=== PATIENT | female | born 1965 | race Caucasian/White ===

== ENCOUNTER 2018-02-06 22:46 | Inpatient (IN) | payer OTHER ==
[~2018-02-06] VITALS: Ht 172.7 cm; Wt 117.0 kg
[2018-02-07] VITALS (10 sets, daily range): BP systolic 107–169; BP diastolic 71–105
[2018-02-07] MEDS ORDERED: IV NORMAL SALINE 1000ML BAG 1,000 ML IV ONE (01:00)
[2018-02-07] MEDS ORDERED: VANCOMYCIN 2 GM in IV NORMAL SALINE 500ML BAG 500 ML IV ONE (01:00)
--- NOTE | 2018-02-07 01:19 | PHYS DOC ---
Past Medical History Past Medical History: Diabetes-Type II, Hypertension, Schizophrenia Past Surgical History: No Surgical History Alcohol Use: None Drug Use: None Adult General Chief Complaint Chief Complaint: SKIN PROBLEM HPI HPI Patient is a 52 year old female presents with cellulitis to left lower extremity. Symptoms began 3 days ago after falling outside and scraped her legs on the ground. Patient has scarlatine rash involving anterior right lower leg extending from ankle to below left knee with 2.5 cm abscess, below left knee. Denies fever, reports chills and sweats. Denies dizziness or lightheadedness. No other acute symptoms or complaints. Patient has not been evaluated for this condition prior to ED visit.[] Review of Systems Review of Systems Review symptoms as per history of present illness. All other review symptoms are negative. All other systems were reviewed and found to be within normal limits, except as documented in this note. Current Medications Current Medications Current Medications Medications (Trade) Dose Ordered Sig/Jacobo Start Time Stop Time Status Last Admin Dose Admin Sodium Chloride 1,000 ml @ 1,000 mls/hr 1X ONCE 02/07/18 01:00 02/07/18 01:59 DC 02/07/18 01:00 1,000 MLS/HR Vancomycin HCl (Vanco Per Pharmacy) 1 each PRN DAILY PRN 02/07/18 01:00 02/07/18 02:16 1 EACH Vancomycin HCl 2 gm/Sodium Chloride 500 ml @ 250 mls/hr 1X ONCE 02/07/18 01:00 02/07/18 02:59 DC 02/07/18 01:00 250 MLS/HR Allergies Allergies Allergies Coded Allergies Type Severity Reaction Last Updated Verified No Known Drug Allergies 02/07/18 No Physical Exam Physical Exam Constitutional: Well developed, well nourished, no acute distress, non-toxic appearance. [] HENT: Normocephalic, atraumatic, bilateral external ears normal, oropharynx moist, no oral exudates, nose normal. [] Eyes: PERRLA, EOMI, conjunctiva normal, no discharge. [] Neck: Normal range of motion, no tenderness, supple, no stridor. [] Cardiovascular: Tachycardic.[] Lungs & Thorax: Bilateral breath sounds clear to auscultation [] Abdomen: Bowel sounds normal, soft, no tenderness. [] Skin: Bright red rash involving left lower extremity, extending from anterior knee to above left ankle. No streaking or induration, There is an approximately 2.5 cm diameter abscess located just below left knee.. [] Back: No tenderness, no CVA tenderness. [] Extremities: Left leg edema, approximately 30% greater than right lower extremity. [] Neurologic: Alert and oriented X 3, normal motor function, normal sensory function, no focal deficits noted. [] Psychologic: Affect normal, judgement normal, mood normal. [] Current Patient Data Vital Signs Vital Signs Date Time Temp Pulse Resp B/P (MAP) Pulse Ox O2 Delivery O2 Flow Rate FiO2 02/07/18 01:25 18 127/89 (102) 94 Nasal Cannula 3.0 02/07/18 00:00 100.6 130 100.6 Lab Values Laboratory Tests Test 02/07/18 01:15 White Blood Count 14.6 x10^3/uL (4.0-11.0) H Red Blood Count 4.47 x10^6/uL (3.50-5.40) Hemoglobin 13.7 g/dL (12.0-15.5) Hematocrit 39.3 % (36.0-47.0) Mean Corpuscular Volume 88 fL (79-100) Mean Corpuscular Hemoglobin 31 pg (25-35) Mean Corpuscular Hemoglobin Concent 35 g/dL (31-37) Red Cell Distribution Width 13.2 % (11.5-14.5) Platelet Count 420 x10^3/uL (140-400) H Neutrophils (%) (Auto) 78 % (31-73) H Lymphocytes (%) (Auto) 13 % (24-48) L Monocytes (%) (Auto) 7 % (0-9) Eosinophils (%) (Auto) 2 % (0-3) Basophils (%) (Auto) 1 % (0-3) Neutrophils # (Auto) 11.3 x10^3uL (1.8-7.7) H Lymphocytes # (Auto) 1.9 x10^3/uL (1.0-4.8) Monocytes # (Auto) 1.0 x10^3/uL (0.0-1.1) Eosinophils # (Auto) 0.3 x10^3/uL (0.0-0.7) Basophils # (Auto) 0.1 x10^3/uL (0.0-0.2) Sodium Level 138 mmol/L (136-145) Potassium Level 4.0 mmol/L (3.5-5.1) Chloride Level 98 mmol/L (98-107) Carbon Dioxide Level 24 mmol/L (21-32) Anion Gap 16 (6-14) H Blood Urea Nitrogen 11 mg/dL (7-20) Creatinine 0.8 mg/dL (0.6-1.0) Estimated GFR (Cockcroft-Gault) 75.0 BUN/Creatinine Ratio 14 (6-20) Glucose Level 370 mg/dL (70-99) H Lactic Acid Level 1.4 mmol/L (0.4-2.0) Calcium Level 9.8 mg/dL (8.5-10.1) Total Bilirubin 0.5 mg/dL (0.2-1.0) Aspartate Amino Transferase (AST) 12 U/L (15-37) L Alanine Aminotransferase (ALT) 15 U/L (14-59) Alkaline Phosphatase 119 U/L (46-116) H C-Reactive Protein, Quantitative 180.7 mg/L (0-3.3) H KT-Ttd-B-Type Natriuretic Peptide 64 pg/mL (0-124) Total Protein 9.3 g/dL (6.4-8.2) H Albumin 2.7 g/dL (3.4-5.0) L Albumin/Globulin Ratio 0.4 (1.0-1.7) L Laboratory Tests 02/07/18 01:15 Laboratory Tests 02/07/18 01:15 EKG EKG [] Radiology/Procedures Radiology/Procedures [Chest x-ray: reviwed ] Course & Med Decision Making Course & Med Decision Making Pertinent Labs and Imaging studies reviewed. (See chart for details) [Sepsis with left leg cellulitis. IV fluids, broad-spectrum antibiotics given. Blood pressure stable. Will admit to the hospital for further treatment,] Dragon Disclaimer Dragon Disclaimer This electronic medical record was generated, in whole or in part, using a voice recognition dictation system. Departure Departure Impression: Primary Impression: Sepsis affecting skin Disposition: ADMITTED INPATIENT Admitting Physician: Dionna Floyd Condition: STABLE PRANAV MOELLER DO Feb 07, 2018 01:20
[2018-02-07 01:25] LABS: BASO # 0.1 x10^3/uL (0.0-0.2); BASO % 1 % (0-3); EOS # 0.3 x10^3/uL (0.0-0.7); EOS % 2 % (0-3); HEMATOCRIT 39.3 % (36.0-47.0); HEMOGLOBIN 13.7 g/dL (12.0-15.5); LYMPH # 1.9 x10^3/uL (1.0-4.8); LYMPH % 13 % (24-48); MEAN CORPUSCULAR HEMOGLOBIN 31 pg (25-35); MEAN CORPUSCULAR HGB CONC 35 g/dL (31-37); MEAN CORPUSCULAR VOLUME 88 fL (79-100); MONO % 7 % (0-9); NEUT # 11.3 x10^3uL (1.8-7.7); NEUT % 78 % (31-73); PLATELET COUNT 420 x10^3/uL (140-400); RED BLOOD COUNT 4.47 x10^6/uL (3.50-5.40); RED CELL DISTRIBUTION WIDTH 13.2 % (11.5-14.5); WHITE BLOOD COUNT 14.6 x10^3/uL (4.0-11.0)
[2018-02-07 01:49] LABS: CALCIUM 9.8 mg/dL (8.5-10.1); CREATININE 0.8 mg/dL (0.6-1.0)
[2018-02-07 01:55] LABS: ALBUMIN 2.7 g/dL (3.4-5.0); ALBUMIN/GLOBULIN RATIO 0.4 (1.0-1.7); C-REACTIVE PROTEIN 180.7 mg/L (0-3.3); TOTAL BILIRUBIN 0.5 mg/dL (0.2-1.0); TOTAL PROTEIN 9.3 g/dL (6.4-8.2)
[2018-02-07] MEDS: VANCOMYCIN PER PHARMACY MC PRN ×2 (02:16→13:07)
[2018-02-07] MEDS ORDERED: LURA20TA PO (03:43)
[2018-02-07] MEDS ORDERED: LURA120T PO (03:43)
[2018-02-07] MEDS ORDERED: METF500T16 PO (03:43)
[2018-02-07] MEDS ORDERED: LISI1TAB7 PO (03:43)
[2018-02-07] MEDS ORDERED: IODI150T PO (03:43)
[2018-02-07] MEDS ORDERED: ASCO250T3 PO (03:43)
[2018-02-07] MEDS: IV NORMAL SALINE 1000ML BAG 1,000 ML IV SCH ×4 (05:11→22:00)
[2018-02-07] MEDS: MEROPENEM 500 MG in IV NORMAL SALINE 50ML 50 ML IV SCH ×3 (06:12→22:53)
--- NOTE | 2018-02-07 09:13 | RAD ---
EXAM: CHEST 1 VIEW. HISTORY: Shortness of breath, lower extremity swelling. COMPARISON: None. FINDINGS: A frontal view of the chest is obtained. The inspiration is small with mild basilar atelectasis. A more focal opacity in the left costophrenic angle may be a fat pad or additional atelectasis. There is no pneumothorax or pleural effusion. The heart is not enlarged. There is calcific tendinitis at the both rotator cuff insertions. IMPRESSION: 1. Basilar atelectasis versus trace pulmonary edema. 2. Correlate for bilateral calcific rotator cuff tendinitis. Electronically signed by: Shun Kay MD (02/07/2018 9:11 AM) [facility]
[2018-02-07] MEDS ORDERED: LIDOCAINE 2% PF 2ML VIAL. INJ ONE (09:30)
[2018-02-07] MEDS ORDERED: LIDOCAINE 2% 20 ML VIAL. IJ ONE (09:30)
[2018-02-07] MEDS ORDERED: DEXTROSE 50% 25 GM / 50ML DISP.SYRIN. IV PRN (09:30)
--- NOTE | 2018-02-07 09:31 | PDOC ---
Provider Note Provider Note H&P dictated cellulitis/abscess/sepsis - IV abx, ID and ortho consults, CT imaging DM2 uncontrolled - SSI HTN - home meds schizophrenia - home meds Nadiya WINSTON MD Feb 07, 2018 09:31
--- NOTE | 2018-02-07 09:40 | PDOC2 ---
CONSULT Date of Consult Date of Consult DATE: 02/07/18 TIME: 09:35 Reason for Consult Reason for Consult: Left leg infection Referring Physician Referring Physician: Identification/Chief Complaint Chief Complaint Lower left leg pain Source Source: Patient History of Present Illness Reason for Visit: Patient is a 52-year-old with a past medical history significant for schizophrenia and diabetes, on oral medication, who approximate 3 days ago think she got a bunch mosquito bites and was scratching these in her leg became infected. Since that is gotten dramatically more swollen and red. She has noticed 2 areas of blisters that have not ruptured and one more area of blister over her anterior proximal pretibial area that has ruptured. Her pain has become , worse and worse which prompted her to come into the emergency department. She was admitted for her swelling, cellulitis and likely abscesses. She does feel feverish. Denies any nausea or vomiting. She has been able to ambulate with assistance of a cane, she normally does use a cane intermittently. Past Medical History Cardiovascular: HTN Pulmonary: Asthma Psych: Schizophrenia Musculoskeletal: Osteoarthritis Endocrine: Diabetes Past Surgical History Past Surgical History: No pertinent history Family History Family History: Hearing Loss, Heart Disease Social History No ALCOHOL: rare Drugs: None Lives: with Family Current Problem List Problem List Problems Medical Problems: (1) Sepsis affecting skin Status: Acute Current Medications Current Medications Current Medications Vancomycin HCl (Vanco Per Pharmacy) 1 each PRN DAILY PRN MC SEE COMMENTS Last administered on 02/07/18at 02:16; Start 02/07/18 at 01:00 Sodium Chloride 1,000 ml @ 1,000 mls/hr 1X ONCE IV Last administered on at 01:00; Start 02/07/18 at 01:00; Stop 02/07/18 at 01:59; Status DC Meropenem 500 mg/ Sodium Chloride 50 ml @ 100 mls/hr Q8HRS IV Last administered on 02/07/18at 06:12; Start 02/07/18 at 06:00 Vancomycin HCl 2 gm/Sodium Chloride 500 ml @ 250 mls/hr 1X ONCE IV Last administered on 02/07/18at 01:00; Start 02/07/18 at 01:00; Stop 02/07/18 at 02:59 ; Status DC Sodium Chloride 1,000 ml @ 150 mls/hr Q6H40M IV Last administered on at 05:11; Start 02/07/18 at 02:00; Stop 02/08/18 at 01:59 Vancomycin HCl 1.75 gm/Sodium Chloride 500 ml @ 250 mls/hr Q8H IV ; Start 02/07 at 09:00 Vancomycin HCl (Vancomycin Trough Level) 1 each 1X ONCE MC ; Start 02/08/18 at 00:30; Stop 02/08/18 at 00:31 Lidocaine HCl (Xylocaine-Mpf 2% Vial) 10 ml 1X ONCE INJ ; Start 02/07/18 at 09: 30; Stop 02/07/18 at 09:31; Status Cancel Insulin Human Lispro (HumaLOG) 0-7 UNITS TIDWMEALS SQ ; Start 02/07/18 at 12:00 Dextrose (Dextrose 50%-Water Syringe) 12.5 gm PRN Q15MIN PRN IV SEE COMMENTS; Start 02/07/18 at 09:30 Lidocaine HCl 20 ml 1X ONCE IJ ; Start 02/07/18 at 09:30; Stop 02/07/18 at 09: 31; Status DC Non-Formulary Medication (Lisinopril/ Hydrochlorothiazide (Lisinopril-Hctz 20- 25 Mg Tab)) 1 tab DAILY PO ; Start 02/08/18 at 09:00; Status UNV Non-Formulary Medication (Lurasidone Hcl (Latuda)) 20 mg DAILY PO ; Start at 09:00; Status UNV Non-Formulary Medication (Lurasidone Hcl (Latuda)) 120 mg DAILY PO ; Start 02/08 at 09:00; Status UNV Active Scripts Active Reported Ascorbic Acid 250 Mg Tablet 250 Mg PO DAILY Kelp (Iodine) 150 Mcg Tablet 150 Mcg PO PRN 1X PRN Latuda (Lurasidone Hcl) 120 Mg Tablet 120 Mg PO DAILY Latuda (Lurasidone Hcl) 20 Mg Tablet 20 Mg PO DAILY Lisinopril-Hctz 20-25 Mg Tab (Lisinopril/Hydrochlorothiazide) 1 Each Tablet 1 Tab PO DAILY Metformin Hcl 500 Mg Tablet 500 Mg PO BIDWMEALS Allergies Allergies: Coded Allergies: No Known Drug Allergies (Unverified , 02/07/18) ROS General: YES: Fatigue PSYCHOLOGICAL ROS: No: Anxiety, Behavioral Disorder, Concentration difficultie , Decreased libido, Depression, Disorientation, Hallucinations, Hostility, Irritablity, Memory difficulties, Mood Swings, Obsessive thoughts, Physical abuse, Sexual abuse, Sleep disturbances, Suicidal ideation, Other Eyes: No Blurry vision, No Decreased vision, No Double vision, No Dry eyes, No Excessive tearing, No Eye Pain, No Itchy Eyes, No Loss of vision, No Photophobia , No Scotomata, No Uses contacts, No Uses glasses, No Other HEENT: No: Heacaches, Visual Changes, Hearing change, Nasal congestion, Nasal discharge, Oral lesions, Sinus pain, Sore Throat, Epistaxis, Sneezing, Snoring, Tinnitus, Vertigo, Vocal changes, Other ALLERGY AND IMMUNOLOGY: YES: Insect Bite Sensitivity Hematological and Lymphatic: No: Bleeding Problems, Blood Clots, Blood Transfusions, Brusing, Night Sweats, Pallor, Swollen Lymph Nodes, Other ENDOCRINE: No: Breast Changes, Galactorrhea, Hair Pattern Changes, Hot Flashes , Malaise/lethargy, Mood Swings, Palpitations, Polydipsia/polyuria, Skin Changes , Temperature Intolerance, Unexpected Weight Changes, Other Respiratory: No: Cough, Hemoptysis, Orthopnea, Pleuritic Pain, Shortness of breath, SOB with excertion, Sputum Changes, Stridor, Tachypnea, Wheezing, Other Cardiovascular: No Chest Pain, No Palpitations, No Orthopnea, No Paroxysmal Noc. Dyspnea, No Edema, No Lt Headedness, No Other Gastrointestinal: No Nausea, No Vomiting, No Abdominal Pain, No Diarrhea, No Constipation, No Melena, No Hematochezia, No Other Genitourinary: No Dysuria, No Frequency, No Incontinence, No Hematuria, No Retention, No Discharge, No Urgency, No Pain, No Flank Pain, No Other, No , No , No , No , No , No , No Musculoskeletal: Yes Muscle Pain, Yes Pain In: (left lower leg) Neurological: No Behavorial Changes, No Bowel/Bladder ControlChng, No Confusion , No Dizziness, No Gait Disturbance, No Headaches, No Impaired Coord/balance, No Memory Loss, No Numbness/Tingling, No Seizures, No Speech Problems, No Tremors, No Visual Changes, No Weakness, No Other Skin: Yes Skin Lesion Changes Physical Exam General: Alert, Oriented X3 HEENT: Atraumatic, EOMI Lungs: Other (respirations aren't labored with symmetric chest rise) Heart: Regular rate, No murmurs Abdomen: Soft, No tenderness Extremities: Normal pulses, Other (no edema right lower extremity) Skin: Other (she has scattered superficial excoriations over a markedly swollen and cellulitic left calf region.) Neuro: Normal speech, Strength at 5/5 X4 ext, Sensation intact Psych/Mental Status: Mental status NL, Mood NL MUSCULOSKELETAL: Other (left calf is markedly cellulitic and swollen circumferentially. No involvement of foot and ankle or knee. No pain with passive range of motion in her left lower extremity. She has 2 times size areas one over anterior distal tibia and one over her lateral middle tibia that are consistent with abscess.) Vitals VITALS Vital Signs Date Time Temp Pulse Resp B/P (MAP) Pulse Ox O2 Delivery O2 Flow Rate FiO2 02/07/18 07:00 98.7 106 18 131/78 (95) 95 Room Air 98.7 02/07/18 01:56 3.0 Labs Labs Laboratory Tests Test 02/07/18 01:15 02/07/18 04:15 White Blood Count 14.6 x10^3/uL (4.0-11.0) Red Blood Count 4.47 x10^6/uL (3.50-5.40) Hemoglobin 13.7 g/dL (12.0-15.5) Hematocrit 39.3 % (36.0-47.0) Mean Corpuscular Volume 88 fL (79-100) Mean Corpuscular Hemoglobin 31 pg (25-35) Mean Corpuscular Hemoglobin Concent 35 g/dL (31-37) Red Cell Distribution Width 13.2 % (11.5-14.5) Platelet Count 420 x10^3/uL (140-400) Neutrophils (%) (Auto) 78 % (31-73) Lymphocytes (%) (Auto) 13 % (24-48) Monocytes (%) (Auto) 7 % (0-9) Eosinophils (%) (Auto) 2 % (0-3) Basophils (%) (Auto) 1 % (0-3) Neutrophils # (Auto) 11.3 x10^3uL (1.8-7.7) Lymphocytes # (Auto) 1.9 x10^3/uL (1.0-4.8) Monocytes # (Auto) 1.0 x10^3/uL (0.0-1.1) Eosinophils # (Auto) 0.3 x10^3/uL (0.0-0.7) Basophils # (Auto) 0.1 x10^3/uL (0.0-0.2) Sodium Level 138 mmol/L (136-145) Potassium Level 4.0 mmol/L (3.5-5.1) Chloride Level 98 mmol/L (98-107) Carbon Dioxide Level 24 mmol/L (21-32) Anion Gap 16 (6-14) Blood Urea Nitrogen 11 mg/dL (7-20) Creatinine 0.8 mg/dL (0.6-1.0) Estimated GFR (Cockcroft-Gault) 75.0 BUN/Creatinine Ratio 14 (6-20) Glucose Level 370 mg/dL (70-99) Lactic Acid Level 1.4 mmol/L (0.4-2.0) 0.9 mmol/L (0.4-2.0) Calcium Level 9.8 mg/dL (8.5-10.1) Total Bilirubin 0.5 mg/dL (0.2-1.0) Aspartate Amino Transf (AST/SGOT) 12 U/L (15-37) Alanine Aminotransferase (ALT/SGPT) 15 U/L (14-59) Alkaline Phosphatase 119 U/L (46-116) C-Reactive Protein, Quantitative 180.7 mg/L (0-3.3) WA-Vxq-O-Type Natriuretic Peptide 64 pg/mL (0-124) Total Protein 9.3 g/dL (6.4-8.2) Albumin 2.7 g/dL (3.4-5.0) Albumin/Globulin Ratio 0.4 (1.0-1.7) Laboratory Tests Test 02/07/18 01:15 02/07/18 04:15 White Blood Count 14.6 x10^3/uL (4.0-11.0) Red Blood Count 4.47 x10^6/uL (3.50-5.40) Hemoglobin 13.7 g/dL (12.0-15.5) Hematocrit 39.3 % (36.0-47.0) Mean Corpuscular Volume 88 fL (79-100) Mean Corpuscular Hemoglobin 31 pg (25-35) Mean Corpuscular Hemoglobin Concent 35 g/dL (31-37) Red Cell Distribution Width 13.2 % (11.5-14.5) Platelet Count 420 x10^3/uL (140-400) Neutrophils (%) (Auto) 78 % (31-73) Lymphocytes (%) (Auto) 13 % (24-48) Monocytes (%) (Auto) 7 % (0-9) Eosinophils (%) (Auto) 2 % (0-3) Basophils (%) (Auto) 1 % (0-3) Neutrophils # (Auto) 11.3 x10^3uL (1.8-7.7) Lymphocytes # (Auto) 1.9 x10^3/uL (1.0-4.8) Monocytes # (Auto) 1.0 x10^3/uL (0.0-1.1) Eosinophils # (Auto) 0.3 x10^3/uL (0.0-0.7) Basophils # (Auto) 0.1 x10^3/uL (0.0-0.2) Sodium Level 138 mmol/L (136-145) Potassium Level 4.0 mmol/L (3.5-5.1) Chloride Level 98 mmol/L (98-107) Carbon Dioxide Level 24 mmol/L (21-32) Anion Gap 16 (6-14) Blood Urea Nitrogen 11 mg/dL (7-20) Creatinine 0.8 mg/dL (0.6-1.0) Estimated GFR (Cockcroft-Gault) 75.0 BUN/Creatinine Ratio 14 (6-20) Glucose Level 370 mg/dL (70-99) Lactic Acid Level 1.4 mmol/L (0.4-2.0) 0.9 mmol/L (0.4-2.0) Calcium Level 9.8 mg/dL (8.5-10.1) Total Bilirubin 0.5 mg/dL (0.2-1.0) Aspartate Amino Transf (AST/SGOT) 12 U/L (15-37) Alanine Aminotransferase (ALT/SGPT) 15 U/L (14-59) Alkaline Phosphatase 119 U/L (46-116) C-Reactive Protein, Quantitative 180.7 mg/L (0-3.3) SL-Dee-W-Type Natriuretic Peptide 64 pg/mL (0-124) Total Protein 9.3 g/dL (6.4-8.2) Albumin 2.7 g/dL (3.4-5.0) Albumin/Globulin Ratio 0.4 (1.0-1.7) Assessment/Plan Assessment/Plan Given her cellulitis, the onset of symptoms over several days, her lack of pain with passive stretch I do not think this represents a necrotizing deep infection. I did discuss her case with Dr. Lorenzana. I discussed a local I&D followed by CAT scan of her left lower extremity to see if there is any deeper fluid collections any draining today. She will remain nothing by mouth. I recommend infectious disease consult. ROYCE DE LA FUENTE II, MD Feb 07, 2018 09:40
--- NOTE | 2018-02-07 09:46 | PDOC4 ---
Operative Note Operative Note Date of procedure 02/07/2018 Surgeon: myself Preoperative diagnosis: Abscesses left lower extremity Postoperative diagnosis: Same Procedure performed bedside I&D Anesthesia: 2% plain lidocaine locally Findings: Small amount of gross purulence Reason for procedure. Patient is a 52-year-old female has has seen in consultation this morning. Please see my consult note for full details. We had a discussion of the risks, benefits, alternatives and rationale to perform this bedside procedure. She wished to proceed. Description of procedure: After sterile prep over the abscesses I injected approximately 5 mL of lidocaine lidocaine into the subcutaneous tissue around these areas. After allowing several minutes for this to set up, I used a scalpel to open and unroofed the abscesses. I used a sterile swab to palpate deeper, I was unable to palpate past subcutaneous tissue. A small amount of purulent material was expressed from each of these. Sterile dressing was applied. I discussed with the patient and nursing that we will get a CAT scan now in order to help decide if there are any deeper fluid collections that would need irrigation and debridement. The patient will remain nothing by mouth. ROYCE DE LA FUENTE II, MD Feb 07, 2018 09:46
--- NOTE | 2018-02-07 10:45 | HP ---
ADMIT DATE: 02/07/2018 ADMISSION DIAGNOSIS: Cellulitis, abscess of the left lower extremity. HISTORY OF PRESENT ILLNESS: This is a 52-year-old lady with cognitive delays who was outside getting some fresh air and had several mosquito bites on her legs. She started scratching them and they have become infected and now, her left lower leg has become quite red, angry, swollen, tender and has several peel on areas. One area on the upper anterior henderson developed a 3-cm vesicle, which is opened and is hemorrhagic. The symptoms have been progressive over the last 3 days. She was febrile at 100.6. She had a leukocytosis, elevated C-reactive protein. PAST MEDICAL HISTORY: She is a type 2 diabetic with hypertension, schizophrenia. PAST SURGICAL HISTORY: None. SOCIAL HISTORY: She does not smoke, drink or use drugs. ALLERGIES: She has no known drug allergies. HOME MEDICATIONS: Include lisinopril/HCTZ 20/25 daily, Latuda 20 mg daily plus 120 mg daily, metformin 500 mg b.i.d. with meals and ascorbic acid 250 mg daily. FAMILY HISTORY: Noncontributory. REVIEW OF SYSTEMS: HEENT: She wears glasses. CARDIAC: Negative for chest pain, palpitations. PULMONARY: Negative for cough or shortness of breath. GASTROINTESTINAL: Negative for nausea or vomiting. She does have a history of constipation. GENITOURINARY: Positive for stress incontinence. ENDOCRINE: Positive for type 2 diabetes. PSYCHIATRIC: Positive for schizophrenia and anxiety. NEUROLOGIC: Positive for peripheral neuropathy. PHYSICAL EXAMINATION: GENERAL: She is awake and alert and comfortable. VITAL SIGNS: Temperature overnight as high as 100.6, blood pressure 131/78, heart rate range from 106-130, pulse ox 95% on room air. HEENT: Shows her wearing her glasses. Conjunctivae are clear. Dentition is poor. NECK: Supple. HEART: Tachycardic, but regular. LUNGS: Clear. ABDOMEN: Obese, soft, nondistended, nontender. EXTREMITIES: Her left lower extremity is about twice the size of her right one with a soft tissue swelling. There is a nearly 3-cm hemorrhagic vesicle of the upper mid henderson with a dressing around it. There is a blood clot that comes out of it though. There are 2 other areas of purulence that are pointing, 1 above the ankle and 1 on the lateral leg. She does have sensation in her feet though. Toenails are unremarkable. Right leg is normal. SKIN: Otherwise is not showing any significant lesions. LABORATORY STUDIES: White count 14.7, hemoglobin 13.7, platelet count is 420. Left shift with 78 neutrophils percentage montero. Chemistries: Blood sugar was 370 at 01:15, this morning 200. Most recent check C-reactive protein is 180, alkaline phosphatase 119, albumin is low at 2.7, total protein is high at 9.3, anion gap is high at 16. The rest of her electrolytes are normal. Her lactic acid is normal at 1.4 with a repeat is 0.9. Chest x-ray shows basilar atelectasis versus trace pulmonary edema and some changes suggestive of bilateral rotator cuff tendinitis that is calcific. ASSESSMENT: 1. Abscess/cellulitis of the left lower extremity with sepsis. 2. Uncontrolled type 2 diabetes. 3. Hypertension. 4. Schizophrenia. PLAN: She is admitted. She has been given vancomycin and meropenem. Blood cultures have been obtained. Infectious Disease is consulted. Ortho was consulted. Bedside I and D will be done by Dr. Chu. CT imaging of the lower extremity is ordered to see if a more aggressive surgical intervention is needed. Sliding scale insulin is ordered. She will apparently remain n.p.o. Home meds are reconciled. W Travis WINSTON MD DR: JESUS ALBERTO/ruperto JOB#: [id number] / [id number]
--- NOTE | 2018-02-07 10:49 | RAD ---
EXAM: CT left leg without contrast. HISTORY: Cellulitis, pain, swelling. Assess for abscess. TECHNIQUE: CT of the left portion it was performed from the distal femoral metaphysis through the. Without intravenous contrast. COMPARISON: None. FINDINGS: There is a region of skin thickening and irregularity just inferior to the tibial tubercle. This measures 5 cm craniocaudally and approximately 3.2 x 1.3 cm transaxially. There is only mild stranding within the underlying subcutaneous fat without a focal collection. Subcutaneous edema is noted diffusely throughout the lower leg laterally greater than medially. Focal soft tissue densities are seen within the subcutaneous fat laterally, probably 7 cm proximal to the lateral malleolus and measure up to 2.5 x 1.9 cm transaxially. These may represent confluent edema or small fluid collections or phlegmonous change. No definitive drainable collection is seen by noncontrast CT. Edema does not appear to extend to deeper compartments. No fractures are identified. There is moderate to severe medial compartment predominant tricompartmental osteoarthritis of the left knee. A loose body along the anterior intercondylar notch measures 1.4 cm. There is moderate lateral subluxation of the patella. Limited images of the right lower extremity reveal no clear adenopathy. IMPRESSION: 1. 5 cm region of skin thickening inferior to the left tibial tubercle. Correlate for an ulcer or other skin lesions. 2. Small confluent regions of soft tissue density within the subcutaneous fat 7 cm proximal to the left lateral malleolus may be confluence edema, or small abscesses or phlegmonous change. Noncontrast CT cannot differentiate. Ultrasound at this site could exclude drainable collections if there is persistent concern. 3. Edema throughout the left lower extremity is consistent with the given history of cellulitis. 4. Moderate to severe medial compartment predominant tricompartmental osteoarthritis of the left knee. 14 mm loose body within the anterior intercondylar notch. *One or more of the following individualized dose reduction techniques were utilized for this examination: 1. Automated exposure control. 2. Adjustment of the mA and/or kV according to patient size. 3. Use of iterative reconstruction technique. Electronically signed by: Shun Kay MD (02/07/2018 10:46 AM) [facility]
--- NOTE | 2018-02-07 11:45 | EKG ---
[facility] [address] [place] [address] Test Date: 2018-02-07 Test Time: 01:55:50 Pat Name: RAMÓN SCHOFIELD Department: Room: 404 Gender: F Scraper Operator: : 1965 Requested By: PRANAV MOELLER Order Number: [id number] Reading MD: Aroldo Sorensen MD Measurements Intervals Holloway Rate: 132 P: GA: QRS: -24 QRSD: 78 T: 24 QT: 312 QTc: 466 Interpretive Statements SR PVC 1ST DEGREE AVB Electronically Signed On 02-09-2018 11:13:44 CDT by Aroldo Sorensen MD
[2018-02-07] MEDS: INSULIN LISPRO 300 UNITS/3 ML INSULN.PEN. SQ SCH ×2 (12:00→17:00)
[2018-02-07] MEDS: VANCOMYCIN 1.75 GM in IV NORMAL SALINE 500ML BAG 500 ML IV SCH ×2 (12:01→21:09)
[2018-02-07] MEDS: fentaNYL PF VIAL 100 MCG/2 ML VIAL IV PRN ×2 (12:02→18:40)
[2018-02-07] MEDS ORDERED: IV RINGERS,LACTATED 1000ML 1,000 ML IV SCH (12:27)
[2018-02-07] MEDS ORDERED: LIDOCAINE 1% PF 2 ML VIAL. ID PRN (12:30)
[2018-02-07] MEDS ORDERED: HYDROmorphone 2 MG/ML VIAL IV PRN (12:30)
[2018-02-07] MEDS ORDERED: MORPHINE SULFATE 2 MG/ML VIAL. IV PRN (12:30)
[2018-02-07] MEDS ORDERED: fentaNYL PF VIAL 100 MCG/2 ML VIAL IV PRN ×2 (12:30)
[2018-02-07] MEDS ORDERED: PROCHLORPERAZINE 10 MG/2 ML VIAL. IV PRN (12:30)
[2018-02-07] MEDS ORDERED: ONDANSETRON PF 4 MG/2 ML VIAL. IV PRN (12:30)
[2018-02-07] MEDS ORDERED: DEXAMETHASONE SOD PHOS 20 MG/5 ML VIAL. ONE (12:35)
[2018-02-07] MEDS ORDERED: ONDANSETRON PF 4 MG/2 ML VIAL. ONE (12:35)
[2018-02-07] MEDS ORDERED: PROPOFOL 20 ML IV ONE (12:35)
[2018-02-07] MEDS ORDERED: fentaNYL PF VIAL 100 MCG/2 ML VIAL ONE (12:36)
[2018-02-07] MEDS ORDERED: LIDOCAINE 2% 20 ML VIAL. ONE (13:38)
[2018-02-07] MEDS ORDERED: BUPIVACAINE MPF 0.5% 30 ML VIAL. ONE (13:39)
[2018-02-07] MEDS ORDERED: SEVOFLURANE 31 TO 60 MINUTES. IH ONE (15:25)
--- NOTE | 2018-02-07 15:33 | PDOC4 ---
Operative Note Operative Note Date of procedure: 02/07/2018 Surgeon: Daryl De La Fuente Preoperative diagnosis: Left lower extremity cellulitis with fluid collection Postoperative diagnosis: Left lower extremity cellulitis with abscess Procedure performed: Application of wound VAC to 2 wounds, less than 20 cm in total; irrigation and debridement, excisional, skin and subcutaneous tissue Anesthesia: Gen. Findings: gross purulence at fluctuant areas laterally, no evidence that the infection went deeper then skin and subcutaneous tissue Blood loss: 20mL Complications: none Specimens: Swabs sent for culture, tissue sent for culture Reason for procedure: Patient is a very pleasant 51-year-old female has noticed worsening pain redness and swelling over her left lower extremity over the past 2-3 days. Because of this she presented to the emergency department and was admitted. Please see my consult note for further details. I discussion of the risks, benefits, alternatives and rationale to the operation based on my clinical and radiographic examination. She wished to proceed. Her graft description of procedure: Patient was greeted in the preoperative holding area where the correct extremity was verified and marked. She was taken back to the operative suite and her antibiotics were maintained as scheduled. Once in the operating room, she was transferred gently supine to the OR table and secured to the bed with all pressure points padded. She had successful induction of a general anesthetic. Left lower extremity was prepped and draped with Betadine paint. After this, we conductor standard preoperative timeout. Based on my review of the CAT scan and her clinical examination, I judy a line over the suspected area with a skin marker then incised skin with a scalpel. Electrocautery was used for hemostasis. Metzenbaums and hemostat for dissection. After incising skin, small amount gross purulence came from the distal lateral incision area and I used a hemostat and probed deep and was not able to enter through the fascial tissue. I then incised another area with fluctuance that had a large pustule centered over it and dissected subcutaneous tissues tissue with hemostats again as well. Exploring this area, I was not able to pass through the subcutaneous tissue. After incising this more proximal lateral area, a larger amount gross purulence extravasated as well as thin watery fluid. It was not grayish in coloration. It was serosanguineous. At this point, I took my tissue on culture samples from the wounds. I then tried to express any material from the anterior proximal pretibial Em and Ila purulence did emanate with manipulation so I made a poke hole over this, by 1 cm , then used a hemostat to dissect this area there was a small amount of gross purulence from here. After being satisfied with an taking my time at exploring to see if this went subfascial, I was confident it did not. Given the large amount of fluid that was passively draining from her lateral incisions, I opted to place a wound VAC to help with this and therefore fashion VAC sponges, one deep and one transversely across it superficially and then sealed these often connected them to the suction apparatus. I ensured it had a good seal prior to leaving the operating room. I packed the other 2 poke holes, one from my bedside I&D, with gauze. The wound VAC and the packing were done after I used about 2000 mL of sterile fluid to irrigated all of these out. We then placed a gauze and a loose wrap of gauze in place over her left lower extremity. She is then awakened from anesthesia and transferred gently supine to the hospital bed and taken to PACU in a stable and extubated condition. Postoperative plan is to readmitted to the floor under the care of the hospitalist. We will follow along with wound cultures. DARYL DE LA FUENTE II, MD Feb 07, 2018 15:33
[2018-02-07] MEDS ORDERED: INSULIN LISPRO 100 UNIT/ML 3ML VIAL. SQ ONE (16:00)
[2018-02-07] MEDS ORDERED: INSULIN LISPRO 300 UNITS/3 ML INSULN.PEN. SQ SCH (16:15)
[2018-02-07] MEDS: LISINOPRIL 20 MG TABLET PO SCH (16:55)
[2018-02-07] MEDS: hydroCHLOROthiazide 25 MG TABLET PO SCH (16:55)
[2018-02-07] MEDS ORDERED: INSULIN LISPRO 300 UNITS/3 ML INSULN.PEN. SQ ONE (21:30)
[2018-02-07] MEDS: NYSTATIN TOPICAL POWDER 15GM BOTTLE. TP SCH (22:53)
[2018-02-08 03:00] VITALS: BP 154/114
[2018-02-08] MEDS: LISINOPRIL 20 MG TABLET PO SCH (03:18)
[2018-02-08] MEDS: VANCOMYCIN 1.75 GM in IV NORMAL SALINE 500ML BAG 500 ML IV SCH ×2 (04:00→17:15)
[2018-02-08 05:11] LABS: BASO % 0 % (0-3); EOS % 0 % (0-3); HEMATOCRIT 37.1 % (36.0-47.0); HEMOGLOBIN 12.2 g/dL (12.0-15.5); LYMPH # 1.4 x10^3/uL (1.0-4.8); LYMPH % 11 % (24-48); MEAN CORPUSCULAR HEMOGLOBIN 29 pg (25-35); MEAN CORPUSCULAR HGB CONC 33 g/dL (31-37); MEAN CORPUSCULAR VOLUME 89 fL (79-100); MONO # 0.4 x10^3/uL (0.0-1.1); MONO % 3 % (0-9); NEUT # 11.1 x10^3uL (1.8-7.7); NEUT % 85 % (31-73); PLATELET COUNT 376 x10^3/uL (140-400); RED BLOOD COUNT 4.16 x10^6/uL (3.50-5.40); RED CELL DISTRIBUTION WIDTH 13.4 % (11.5-14.5); WHITE BLOOD COUNT 12.9 x10^3/uL (4.0-11.0)
[2018-02-08 05:12] LABS: VANC TR 24.9 mcg/mL (10.0-20.0)
[2018-02-08 05:44] LABS: ALBUMIN 2.2 g/dL (3.4-5.0); ALBUMIN/GLOBULIN RATIO 0.4 (1.0-1.7); CALCIUM 9.2 mg/dL (8.5-10.1); CREATININE 0.7 mg/dL (0.6-1.0); GFR 87.5; POTASSIUM 3.9 mmol/L (3.5-5.1); TOTAL BILIRUBIN 0.4 mg/dL (0.2-1.0); TOTAL PROTEIN 8.3 g/dL (6.4-8.2)
[2018-02-08] MEDS: VANCOMYCIN PER PHARMACY MC PRN ×3 (05:55→11:03)
[2018-02-08] MEDS: MEROPENEM 500 MG in IV NORMAL SALINE 50ML 50 ML IV SCH ×2 (06:05→14:00)
[2018-02-08 07:00] VITALS: BP 150/93
[2018-02-08] MEDS: LURASIDONE 40 MG TABLET. PO SCH (08:44)
[2018-02-08] MEDS: HYDROcodone/APAP 5/325MG 1 TAB TABLET PO PRN ×3 (08:45→16:24)
[2018-02-08] MEDS: hydroCHLOROthiazide 25 MG TABLET PO SCH (08:46)
[2018-02-08] MEDS: NYSTATIN TOPICAL POWDER 15GM BOTTLE. TP SCH ×2 (08:47→22:09)
[2018-02-08] MEDS: INSULIN LISPRO 300 UNITS/3 ML INSULN.PEN. SQ SCH ×5 (08:59→17:25)
[2018-02-08] MEDS ORDERED: NON FORMULARY ITEM (Lurasidone Hcl (Latuda) 120 MG) PO SCH (09:00)
--- NOTE | 2018-02-08 10:54 | PDOC ---
Infectious Disease Note Vital Sign Vital Signs Vital Signs Date Time Temp Pulse Resp B/P (MAP) Pulse Ox O2 Delivery O2 Flow Rate FiO2 02/08/18 08:46 20 Room Air 02/08/18 07:00 97.7 92 150/93 (112) 92 97.7 02/08/18 03:00 2.0 Labs Lab Laboratory Tests Test 02/07/18 11:43 02/07/18 15:49 02/07/18 21:05 02/08/18 03:30 Glucose (Fingerstick) 268 mg/dL (70-99) 253 mg/dL (70-99) 429 mg/dL (70-99) White Blood Count 12.9 x10^3/uL (4.0-11.0) Red Blood Count 4.16 x10^6/uL (3.50-5.40) Hemoglobin 12.2 g/dL (12.0-15.5) Hematocrit 37.1 % (36.0-47.0) Mean Corpuscular Volume 89 fL (79-100) Mean Corpuscular Hemoglobin 29 pg (25-35) Mean Corpuscular Hemoglobin Concent 33 g/dL (31-37) Red Cell Distribution Width 13.4 % (11.5-14.5) Platelet Count 376 x10^3/uL (140-400) Neutrophils (%) (Auto) 85 % (31-73) Lymphocytes (%) (Auto) 11 % (24-48) Monocytes (%) (Auto) 3 % (0-9) Eosinophils (%) (Auto) 0 % (0-3) Basophils (%) (Auto) 0 % (0-3) Neutrophils # (Auto) 11.1 x10^3uL (1.8-7.7) Lymphocytes # (Auto) 1.4 x10^3/uL (1.0-4.8) Monocytes # (Auto) 0.4 x10^3/uL (0.0-1.1) Eosinophils # (Auto) 0.0 x10^3/uL (0.0-0.7) Basophils # (Auto) 0.0 x10^3/uL (0.0-0.2) Sodium Level 141 mmol/L (136-145) Potassium Level 3.9 mmol/L (3.5-5.1) Chloride Level 104 mmol/L (98-107) Carbon Dioxide Level 21 mmol/L (21-32) Anion Gap 16 (6-14) Blood Urea Nitrogen 13 mg/dL (7-20) Creatinine 0.7 mg/dL (0.6-1.0) Estimated GFR (Cockcroft-Gault) 87.5 BUN/Creatinine Ratio 19 (6-20) Glucose Level 346 mg/dL (70-99) Calcium Level 9.2 mg/dL (8.5-10.1) Total Bilirubin 0.4 mg/dL (0.2-1.0) Aspartate Amino Transf (AST/SGOT) 15 U/L (15-37) Alanine Aminotransferase (ALT/SGPT) 17 U/L (14-59) Alkaline Phosphatase 108 U/L (46-116) Total Protein 8.3 g/dL (6.4-8.2) Albumin 2.2 g/dL (3.4-5.0) Albumin/Globulin Ratio 0.4 (1.0-1.7) Test 02/08/18 03:40 02/08/18 08:20 Vancomycin Level Trough 24.9 mcg/mL (10.0-20.0) Vancomycin Last Dose Date 02/07/18 Vancomycin Last Dose Time 2000 Glucose (Fingerstick) 308 mg/dL (70-99) Objective Assessment Severe cellulitis with abscess of left lower leg -s/p I and D, excisional, skin & subcutaneous tissue w/ wound vac application on 02/07. Intra-op cx in process -s/p bedside I and D 02/07. culture in process -Precipitated by multiple mosquito bites and scratching Fever Leukocytosis Diabetes type II, poorly controlled Schizophrenia HTN Poor dentition Plan Plan of Care Cont vanc and d/c meropenem begini zosyn Pre-op steroids 02/07 F/u culture results Monitor WBC/temp/renal function and leg closely Pain management per primary Await ortho follow-up Wound care D/w Dr. Lorenzana Thank you [phone] Attending Co-Sign Attending Co-Sign The patient was seen and interviewed as well as examined at the bedside. The chart was reviewed. The case was discussed. Agree with the plan of care. FARIHA KATZ APRN Feb 08, 2018 10:54 ALEXA PEREZ MD Feb 08, 2018 14:22
[2018-02-08 11:00] VITALS: BP 156/87
--- NOTE | 2018-02-08 11:08 | PDOC ---
PROGRESS NOTES Subjective She went to OR yesterday afternoon for I&D of abscess (but non of the infection was in subfacial tissue) and is now wearing a wound vac, cultures obtained, WBC improved, leg less red but still has a lot of soft tissue swelling Objective Afebrile General: comfortable A&O Heart: RRR Lungs: CTA Abd: soft , non tender Ext: wound vac left leg , cellulitis still present but less red than yesterday , dressing still present over hemorrhagic vesicle WBC: 12.9 Hgb: 12.2 glucose 308 albumin 2.2 Vital Signs Vital Signs Date Time Temp Pulse Resp B/P (MAP) Pulse Ox O2 Delivery O2 Flow Rate FiO2 02/08/18 09:46 20 Room Air 02/08/18 07:00 97.7 92 150/93 (112) 92 97.7 02/08/18 03:00 2.0 I & O Intake and Output 02/08/18 07:00 Intake Total 1510 ml Output Total 420 ml Balance 1090 ml Intake Oral 760 ml IV Total 750 ml Output Urine Total 400 ml Estimated Blood Loss 20 ml # Voids 9 Assessment and Plan 1. Abscess/cellulitis of the left lower extremity with sepsis, s/p bedside and OR I&D, culture obtained, wound vac in place, ID to see, currently on Meropenem and Vanco 2. Uncontrolled type 2 diabetes - added SSI without improvement so will start routine basal/bolus insulin and resume metformin, awaiting A1c. 3. Hypertension - controlled, continue home meds. 4. Schizophrenia, controlled, continue home meds. Nadiya WINSTON MD Feb 08, 2018 11:08
--- NOTE | 2018-02-08 11:20 | PDOC ---
ORTHO PROGRESS NOTES Subjective Pain better compared to preop, but still quite sore. No new pain. No F/C lately. Vitals Vital Signs Date Time Temp Pulse Resp B/P (MAP) Pulse Ox O2 Delivery O2 Flow Rate FiO2 02/08/18 09:46 20 Room Air 02/08/18 07:00 97.7 92 150/93 (112) 92 97.7 02/08/18 03:00 2.0 Labs Laboratory Tests Test 02/07/18 01:15 02/07/18 04:15 02/07/18 07:20 02/07/18 11:43 White Blood Count 14.6 x10^3/uL (4.0-11.0) Red Blood Count 4.47 x10^6/uL (3.50-5.40) Hemoglobin 13.7 g/dL (12.0-15.5) Hematocrit 39.3 % (36.0-47.0) Mean Corpuscular Volume 88 fL (79-100) Mean Corpuscular Hemoglobin 31 pg (25-35) Mean Corpuscular Hemoglobin Concent 35 g/dL (31-37) Red Cell Distribution Width 13.2 % (11.5-14.5) Platelet Count 420 x10^3/uL (140-400) Neutrophils (%) (Auto) 78 % (31-73) Lymphocytes (%) (Auto) 13 % (24-48) Monocytes (%) (Auto) 7 % (0-9) Eosinophils (%) (Auto) 2 % (0-3) Basophils (%) (Auto) 1 % (0-3) Neutrophils # (Auto) 11.3 x10^3uL (1.8-7.7) Lymphocytes # (Auto) 1.9 x10^3/uL (1.0-4.8) Monocytes # (Auto) 1.0 x10^3/uL (0.0-1.1) Eosinophils # (Auto) 0.3 x10^3/uL (0.0-0.7) Basophils # (Auto) 0.1 x10^3/uL (0.0-0.2) Sodium Level 138 mmol/L (136-145) Potassium Level 4.0 mmol/L (3.5-5.1) Chloride Level 98 mmol/L (98-107) Carbon Dioxide Level 24 mmol/L (21-32) Anion Gap 16 (6-14) Blood Urea Nitrogen 11 mg/dL (7-20) Creatinine 0.8 mg/dL (0.6-1.0) Estimated GFR (Cockcroft-Gault) 75.0 BUN/Creatinine Ratio 14 (6-20) Glucose Level 370 mg/dL (70-99) Lactic Acid Level 1.4 mmol/L (0.4-2.0) 0.9 mmol/L (0.4-2.0) Calcium Level 9.8 mg/dL (8.5-10.1) Total Bilirubin 0.5 mg/dL (0.2-1.0) Aspartate Amino Transf (AST/SGOT) 12 U/L (15-37) Alanine Aminotransferase (ALT/SGPT) 15 U/L (14-59) Alkaline Phosphatase 119 U/L (46-116) C-Reactive Protein, Quantitative 180.7 mg/L (0-3.3) WV-Ifp-E-Type Natriuretic Peptide 64 pg/mL (0-124) Total Protein 9.3 g/dL (6.4-8.2) Albumin 2.7 g/dL (3.4-5.0) Albumin/Globulin Ratio 0.4 (1.0-1.7) Glucose (Fingerstick) 268 mg/dL (70-99) 268 mg/dL (70-99) Test 02/07/18 15:49 02/07/18 21:05 02/08/18 03:30 02/08/18 03:40 Glucose (Fingerstick) 253 mg/dL (70-99) 429 mg/dL (70-99) White Blood Count 12.9 x10^3/uL (4.0-11.0) Red Blood Count 4.16 x10^6/uL (3.50-5.40) Hemoglobin 12.2 g/dL (12.0-15.5) Hematocrit 37.1 % (36.0-47.0) Mean Corpuscular Volume 89 fL (79-100) Mean Corpuscular Hemoglobin 29 pg (25-35) Mean Corpuscular Hemoglobin Concent 33 g/dL (31-37) Red Cell Distribution Width 13.4 % (11.5-14.5) Platelet Count 376 x10^3/uL (140-400) Neutrophils (%) (Auto) 85 % (31-73) Lymphocytes (%) (Auto) 11 % (24-48) Monocytes (%) (Auto) 3 % (0-9) Eosinophils (%) (Auto) 0 % (0-3) Basophils (%) (Auto) 0 % (0-3) Neutrophils # (Auto) 11.1 x10^3uL (1.8-7.7) Lymphocytes # (Auto) 1.4 x10^3/uL (1.0-4.8) Monocytes # (Auto) 0.4 x10^3/uL (0.0-1.1) Eosinophils # (Auto) 0.0 x10^3/uL (0.0-0.7) Basophils # (Auto) 0.0 x10^3/uL (0.0-0.2) Sodium Level 141 mmol/L (136-145) Potassium Level 3.9 mmol/L (3.5-5.1) Chloride Level 104 mmol/L (98-107) Carbon Dioxide Level 21 mmol/L (21-32) Anion Gap 16 (6-14) Blood Urea Nitrogen 13 mg/dL (7-20) Creatinine 0.7 mg/dL (0.6-1.0) Estimated GFR (Cockcroft-Gault) 87.5 BUN/Creatinine Ratio 19 (6-20) Glucose Level 346 mg/dL (70-99) Calcium Level 9.2 mg/dL (8.5-10.1) Total Bilirubin 0.4 mg/dL (0.2-1.0) Aspartate Amino Transf (AST/SGOT) 15 U/L (15-37) Alanine Aminotransferase (ALT/SGPT) 17 U/L (14-59) Alkaline Phosphatase 108 U/L (46-116) Total Protein 8.3 g/dL (6.4-8.2) Albumin 2.2 g/dL (3.4-5.0) Albumin/Globulin Ratio 0.4 (1.0-1.7) Vancomycin Level Trough 24.9 mcg/mL (10.0-20.0) Vancomycin Last Dose Date 02/07/18 Vancomycin Last Dose Time 2000 Test 02/08/18 08:20 Glucose (Fingerstick) 308 mg/dL (70-99) Laboratory Tests Test 02/07/18 11:43 02/07/18 15:49 02/07/18 21:05 02/08/18 03:30 Glucose (Fingerstick) 268 mg/dL (70-99) 253 mg/dL (70-99) 429 mg/dL (70-99) White Blood Count 12.9 x10^3/uL (4.0-11.0) Red Blood Count 4.16 x10^6/uL (3.50-5.40) Hemoglobin 12.2 g/dL (12.0-15.5) Hematocrit 37.1 % (36.0-47.0) Mean Corpuscular Volume 89 fL (79-100) Mean Corpuscular Hemoglobin 29 pg (25-35) Mean Corpuscular Hemoglobin Concent 33 g/dL (31-37) Red Cell Distribution Width 13.4 % (11.5-14.5) Platelet Count 376 x10^3/uL (140-400) Neutrophils (%) (Auto) 85 % (31-73) Lymphocytes (%) (Auto) 11 % (24-48) Monocytes (%) (Auto) 3 % (0-9) Eosinophils (%) (Auto) 0 % (0-3) Basophils (%) (Auto) 0 % (0-3) Neutrophils # (Auto) 11.1 x10^3uL (1.8-7.7) Lymphocytes # (Auto) 1.4 x10^3/uL (1.0-4.8) Monocytes # (Auto) 0.4 x10^3/uL (0.0-1.1) Eosinophils # (Auto) 0.0 x10^3/uL (0.0-0.7) Basophils # (Auto) 0.0 x10^3/uL (0.0-0.2) Sodium Level 141 mmol/L (136-145) Potassium Level 3.9 mmol/L (3.5-5.1) Chloride Level 104 mmol/L (98-107) Carbon Dioxide Level 21 mmol/L (21-32) Anion Gap 16 (6-14) Blood Urea Nitrogen 13 mg/dL (7-20) Creatinine 0.7 mg/dL (0.6-1.0) Estimated GFR (Cockcroft-Gault) 87.5 BUN/Creatinine Ratio 19 (6-20) Glucose Level 346 mg/dL (70-99) Calcium Level 9.2 mg/dL (8.5-10.1) Total Bilirubin 0.4 mg/dL (0.2-1.0) Aspartate Amino Transf (AST/SGOT) 15 U/L (15-37) Alanine Aminotransferase (ALT/SGPT) 17 U/L (14-59) Alkaline Phosphatase 108 U/L (46-116) Total Protein 8.3 g/dL (6.4-8.2) Albumin 2.2 g/dL (3.4-5.0) Albumin/Globulin Ratio 0.4 (1.0-1.7) Test 02/08/18 03:40 02/08/18 08:20 Vancomycin Level Trough 24.9 mcg/mL (10.0-20.0) Vancomycin Last Dose Date 02/07/18 Vancomycin Last Dose Time 2000 Glucose (Fingerstick) 308 mg/dL (70-99) Notes Cxs Pending A and A LLE: VAC in place with good seal cellulitis improved, more proximally than distally no new wounds Assessment and Plan abx per ID repeat I and D, wound closure tomorrow NPO at ROYCE RIVAS II, MD Feb 08, 2018 11:20
[2018-02-08] MEDS: fentaNYL PF VIAL 100 MCG/2 ML VIAL IV PRN (11:33)
[2018-02-08 15:00] VITALS: BP 123/80
[2018-02-08] MEDS: metFORMIN 500 MG TABLET PO SCH (17:15)
[2018-02-08 19:50] VITALS: BP 129/77
[2018-02-08] MEDS: PIPERACILLIN/TAZOBACTAM 3.375 GM in IV NORMAL SALINE 50ML 50 ML IV SCH (20:01)
[2018-02-08] MEDS ORDERED: INSULIN GLARGINE 300 UNITS/3 ML INSULN.PEN. SQ SCH (21:00)
[2018-02-08] MEDS: LACTOBACILLUS RHAMNOSUS GG 1 CAPSULE. PO SCH (22:10)
[2018-02-08 23:11] VITALS: BP 103/69
[2018-02-09] VITALS (10 sets, daily range): BP systolic 104–153; BP diastolic 66–99
[2018-02-09] MEDS: PIPERACILLIN/TAZOBACTAM 3.375 GM in IV NORMAL SALINE 50ML 50 ML IV SCH ×4 (00:42→17:17)
--- NOTE | 2018-02-09 01:00 | CONS ---
DATE OF CONSULTATION: 02/08/2018 REQUESTING PHYSICIAN: Dr. Lorenzana. REASON FOR CONSULTATION: Leg abscess. HISTORY OF PRESENT ILLNESS: The patient is a 52-year-old female with a past medical history of schizophrenia and diabetes type 2, who was sitting on her porch 3 days ago, when she stood up felt a little lightheaded, lost her reflexes and fell down on the grass. She says a swarm of mosquitoes bit both her legs causing her legs to itch, sting and burn. She scratched the areas causing some bleeding. Since then her left leg has become increasingly red, swollen and painful with blisters and drainage. She has been running low grade fevers and her white blood cell count is elevated. She was seen by Dr. Chu who performed a bedside I and D yesterday. A followup CAT scan revealed diffuse subcutaneous edema and small focal soft tissue density. She was then taken to the OR and underwent irrigation and debridement, excisional skin and subcutaneous tissue yesterday. Gross purulence noted and sent for culture. There was no evidence of infection deeper than the skin and subcutaneous tissue noted. She is currently on vancomycin and meropenem. The patient says she is hungry and thirsty. She had a headache earlier that has since resolved. She has had history of an infected cyst years ago, but had no other infection since. She complains of left leg pain and guards against touch. Her leg is looking less red. She denies chills, sweats or body aches. She denies use of any [id number] medications at home for treatment of the mosquito bites. PAST MEDICAL HISTORY: Schizophrenia, diabetes mellitus type 2, osteoarthritis, hypertension. PAST SURGICAL HISTORY: As mentioned above. Cyst removal on back. FAMILY HISTORY: Positive for hearing loss and heart disease. SOCIAL HISTORY: The patient lives at home with her father and brother. She is a nonsmoker. She does not work. ALLERGIES: No known drug allergies. MEDICATIONS: Vancomycin, meropenem, preop dose of Decadron 02/07/2018. Other medications are available and have been reviewed on JUL. REVIEW OF SYSTEMS: Per HPI, otherwise all other review of systems is negative. PHYSICAL EXAMINATION: GENERAL: The patient is propped up in bed, alert, relaxed appearance. VITAL SIGNS: Temperature is 97.7, blood pressure 150/93, heart rate 92, respiratory rate 20, pulse oximetry is 92% on room air, BMI 37. HEENT: Pupils equally round. She wears eyeglasses. Oral mucosa is pink and moist. Poor dentition. She has few pustules below her nose. Facial hair noted. NECK: Supple. LUNGS: Clear to auscultation. HEART: S1, S2. ABDOMEN: Obese, bowel sounds active, soft, nontender. She has some yeast under the pannus area. EXTREMITIES: She has multiple small scabs right lower leg. Her left lower leg is edematous, warm and erythematous with wound VAC in place. She also has two wounds that are packed with gauze. Distal pulses palpable. SKIN: Warm without rash. Few skin tags noted. NEUROLOGIC: Alert, responds appropriately and follows simple commands. LABORATORY DATA: WBC 12.9 from 14.6 on admission, hemoglobin 12.2, platelet count 376,000, creatinine 0.7, BUN 13. Electrolytes are unremarkable. Glucose 346. Lactic acid 0.9. CRP 180.7, albumin 2.2, total bilirubin 0.4, AST 15, ALT 17. Vancomycin trough 24.9. Anaerobic--aerobic cultures pending. Lower extremity CT reviewed. Chest x-ray showed basilar atelectasis versus trace pulmonary edema. IMPRESSION: 1. Severe cellulitis with abscess of left lower leg, status post irrigation and debridement excisional skin and subcutaneous tissue with wound VAC application on 02/07/2018. 2. Fever. 3. Leukocytosis. 4. Diabetes type 2, poorly controlled. 5. Schizophrenia. 6. Hypertension. PLAN: Continue the vancomycin and switch meropenem to Zosyn. We will follow up on culture results. Continue to monitor WBC count, temperature renal function and leg closely. Pain management per primary. Awaiting Ortho followup. Local wound care. Thank you, Dr. Lorenzana for asking us to participate in this patient's care. Should you have further questions or concerns, please call. Patient seen, examined and plan implemented by Dr. Dirk Perez. DICTATED BY: This is Richie eDleon, nursing practitioner ALEXA PEREZ MD DR: GARRISON/ruperto JOB#: [id number] / [id number] MTDD
[2018-02-09] MEDS: VANCOMYCIN 1.75 GM in IV NORMAL SALINE 500ML BAG 500 ML IV SCH ×2 (04:14→17:16)
[2018-02-09 04:46] LABS: BASO # 0.1 x10^3/uL (0.0-0.2); BASO % 1 % (0-3); EOS # 0.1 x10^3/uL (0.0-0.7); EOS % 1 % (0-3); HEMATOCRIT 35.6 % (36.0-47.0); HEMOGLOBIN 11.9 g/dL (12.0-15.5); LYMPH # 2.8 x10^3/uL (1.0-4.8); LYMPH % 29 % (24-48); MEAN CORPUSCULAR HEMOGLOBIN 30 pg (25-35); MEAN CORPUSCULAR HGB CONC 34 g/dL (31-37); MEAN CORPUSCULAR VOLUME 89 fL (79-100); MONO # 0.6 x10^3/uL (0.0-1.1); MONO % 7 % (0-9); NEUT # 6.1 x10^3uL (1.8-7.7); NEUT % 63 % (31-73); PLATELET COUNT 396 x10^3/uL (140-400); RED BLOOD COUNT 4.02 x10^6/uL (3.50-5.40); RED CELL DISTRIBUTION WIDTH 13.5 % (11.5-14.5); WHITE BLOOD COUNT 9.7 x10^3/uL (4.0-11.0)
[2018-02-09 04:49] LABS: CALCIUM 9.1 mg/dL (8.5-10.1); CREATININE 0.8 mg/dL (0.6-1.0); POTASSIUM 3.4 mmol/L (3.5-5.1)
[2018-02-09] MEDS: LACTOBACILLUS RHAMNOSUS GG 1 CAPSULE. PO SCH ×2 (07:49→20:27)
[2018-02-09] MEDS: LURASIDONE 40 MG TABLET. PO SCH (07:49)
[2018-02-09] MEDS: hydroCHLOROthiazide 25 MG TABLET PO SCH (07:50)
[2018-02-09] MEDS: NYSTATIN TOPICAL POWDER 15GM BOTTLE. TP SCH ×2 (07:50→20:27)
[2018-02-09] MEDS: LISINOPRIL 20 MG TABLET PO SCH (07:50)
[2018-02-09] MEDS: metFORMIN 500 MG TABLET PO SCH (07:50)
[2018-02-09] MEDS: INSULIN LISPRO 300 UNITS/3 ML INSULN.PEN. SQ SCH ×6 (08:11→17:24)
--- NOTE | 2018-02-09 09:07 | PDOC ---
Infectious Disease Note Subjective: Subjective Pt cont to have lt leg pain, she is hungry and thirsty awaiting surgery later today has low grade fevers no n/v/d/abdo pain ROS: ROS Negative except for above. Vital Signs: Vital Signs Vital Signs Date Time Temp Pulse Resp B/P (MAP) Pulse Ox O2 Delivery O2 Flow Rate FiO2 02/09/18 07:00 97.7 91 16 135/82 (99) 95 Room Air 97.7 02/08/18 20:00 2.0 Physical Exam: PHYSICAL EXAM GEN AxOx3 male in nad HEENT: Pupils equally round. Oral mucosa is pink and moist. Poor dentition. She has few pustules below her nose. Facial hair noted. NECK: Supple. LUNGS: Clear to auscultation. HEART: S1, S2. ABDOMEN: Obese, bowel sounds active, soft, nontender. She has some yeast under the pannus area. EXTREMITIES: She has multiple small scabs right lower leg. Her left lower leg is edematous, warm and erythematous with wound VAC in place. She also has two wounds that are packed with gauze. Distal pulses palpable. SKIN: Warm without rash. Few skin tags noted. NEUROLOGIC: Alert, responds appropriately and follows simple commands. Medications: Inpatient Meds: Current Medications Medications (Trade) Dose Ordered Sig/Jacobo Start Time Stop Time Status Last Admin Dose Admin Acetaminophen/ Hydrocodone Bitart (Lortab 5/325) 2 tab PRN QID PRN 02/07/18 11:30 02/08/18 16:24 2 TAB Bupivacaine HCl (Sensorcaine Mpf 0.5%) 30 ml STK-MED ONCE 02/07/18 13:39 02/07/18 14:39 DC Dexamethasone Sodium Phosphate (Decadron) 20 mg STK-MED ONCE 02/07/18 12:35 02/07/18 12:36 DC Dextrose (Dextrose 50%-Water Syringe) 12.5 gm PRN Q15MIN PRN 02/07/18 09:30 Fentanyl Citrate (Fentanyl 2ml Vial) 100 mcg STK-MED ONCE 02/07/18 12:36 02/07/18 12:37 DC Hydrochlorothiazide (Hydrodiuril) 25 mg DAILY 02/07/18 10:00 02/08/18 08:46 25 MG Hydromorphone HCl (Dilaudid) 0.5 mg PRN Q10MIN PRN 02/07/18 12:30 02/07/18 19:00 DC Insulin Glargine (Lantus) 20 units QHS 02/08/18 21:00 02/08/18 21:00 20 UNITS Insulin Human Lispro (HumaLOG VIAL) 4 unit 1X ONCE 02/07/18 16:00 02/07/18 16:12 DC 02/07/18 16:05 4 UNIT Insulin Human Lispro (HumaLOG) 10 units TIDWMEALS 02/08/18 12:00 02/09/18 08:12 10 UNITS Lactobacillus Rhamnosus (Culturelle) 1 cap BID 02/08/18 21:00 02/08/18 22:10 1 CAP Lidocaine HCl 20 ml STK-MED ONCE 02/07/18 13:38 02/07/18 14:39 DC Lidocaine HCl (Xylocaine-Mpf 1% 2ml Vial) 2 ml 1X PRN PRN 02/07/18 12:30 02/07/18 19:00 DC Lidocaine HCl (Xylocaine-Mpf 2% Vial) 10 ml 1X ONCE 02/07/18 09:30 02/07/18 09:31 Cancel Lisinopril (Prinivil) 20 mg DAILY 02/07/18 10:00 02/08/18 03:18 20 MG Lurasidone HCl (Latuda) 140 mg DAILYWBKFT 02/08/18 08:00 02/08/18 08:44 140 MG Meropenem 500 mg/ Sodium Chloride 50 ml @ 100 mls/hr Q8HRS 02/07/18 06:00 02/08/18 14:21 DC 02/08/18 06:05 100 MLS/HR Metformin HCl (Glucophage) 500 mg 1000 02/08/18 17:00 02/08/18 17:15 500 MG Morphine Sulfate (Morphine Sulfate) 1 mg PRN Q10MIN PRN 02/07/18 12:30 02/07/18 19:00 DC Non-Formulary Medication (Lurasidone Hcl (Latuda)) 120 mg DAILY 02/08/18 09:00 UNV Nystatin (Nystop) 1 padmini BID 02/07/18 21:30 02/08/18 22:09 1 PADMINI Ondansetron HCl (Zofran) 4 mg STK-MED ONCE 02/07/18 12:35 02/07/18 12:36 DC Piperacillin Sod/ Tazobactam Sod 3.375 gm/Sodium Chloride 50 ml @ 100 mls/hr Q6HRS 02/08/18 18:00 02/09/18 06:00 100 MLS/HR Prochlorperazine Edisylate (Compazine) 5 mg PACU PRN PRN 02/07/18 12:30 02/07/18 19:00 DC Propofol 20 ml @ As Directed STK-MED ONCE 02/07/18 12:35 02/07/18 12:36 DC Ringer's Solution 1,000 ml @ 30 mls/hr Q24H 02/07/18 12:27 02/08/18 00:26 DC Sevoflurane (Ultane) 30 ml STK-MED ONCE 02/07/18 15:25 02/07/18 15:26 DC Sodium Chloride 1,000 ml @ 150 mls/hr Q6H40M 02/07/18 02:00 02/08/18 01:59 DC 02/07/18 18:39 150 MLS/HR Vancomycin HCl (Vanco Per Pharmacy) 1 each PRN DAILY PRN 02/07/18 01:00 02/08/18 11:03 1 EACH Vancomycin HCl (Vancomycin Trough Level) 1 each 1X ONCE 02/09/18 15:30 02/09/18 15:31 Vancomycin HCl 1.75 gm/Sodium Chloride 500 ml @ 250 mls/hr Q12H 02/08/18 16:00 02/09/18 04:14 250 MLS/HR Vancomycin HCl 2 gm/Sodium Chloride 500 ml @ 250 mls/hr 1X ONCE 02/07/18 01:00 02/07/18 02:59 DC 02/07/18 01:00 250 MLS/HR Labs: Lab Laboratory Tests Test 02/08/18 11:26 02/08/18 16:37 02/08/18 20:47 02/09/18 03:25 Glucose (Fingerstick) 355 mg/dL (70-99) 300 mg/dL (70-99) 343 mg/dL (70-99) White Blood Count 9.7 x10^3/uL (4.0-11.0) Red Blood Count 4.02 x10^6/uL (3.50-5.40) Hemoglobin 11.9 g/dL (12.0-15.5) Hematocrit 35.6 % (36.0-47.0) Mean Corpuscular Volume 89 fL (79-100) Mean Corpuscular Hemoglobin 30 pg (25-35) Mean Corpuscular Hemoglobin Concent 34 g/dL (31-37) Red Cell Distribution Width 13.5 % (11.5-14.5) Platelet Count 396 x10^3/uL (140-400) Neutrophils (%) (Auto) 63 % (31-73) Lymphocytes (%) (Auto) 29 % (24-48) Monocytes (%) (Auto) 7 % (0-9) Eosinophils (%) (Auto) 1 % (0-3) Basophils (%) (Auto) 1 % (0-3) Neutrophils # (Auto) 6.1 x10^3uL (1.8-7.7) Lymphocytes # (Auto) 2.8 x10^3/uL (1.0-4.8) Monocytes # (Auto) 0.6 x10^3/uL (0.0-1.1) Eosinophils # (Auto) 0.1 x10^3/uL (0.0-0.7) Basophils # (Auto) 0.1 x10^3/uL (0.0-0.2) Sodium Level 139 mmol/L (136-145) Potassium Level 3.4 mmol/L (3.5-5.1) Chloride Level 103 mmol/L (98-107) Carbon Dioxide Level 27 mmol/L (21-32) Anion Gap 9 (6-14) Blood Urea Nitrogen 11 mg/dL (7-20) Creatinine 0.8 mg/dL (0.6-1.0) Estimated GFR (Cockcroft-Gault) 75.0 Glucose Level 342 mg/dL (70-99) Calcium Level 9.1 mg/dL (8.5-10.1) Test 02/09/18 07:31 Glucose (Fingerstick) 291 mg/dL (70-99) Micro RUN DATE: 02/09/18 PAGE 1 RUN TIME: 021 [facility] [address] [place] [address] Celso Santillan M.D., Swatch Maker PATIENT: RAMÓN SCHOFIELD ACCT: [id number] LOC: [address] [place] [address] U : [id number] AGE/SX: 52/F ROOM: 404 REG : 02/07/[address]: TREE VALLES MD : 1965 BED: 1 DIS : STATUS: ADM IN TLOC: SPEC #: [id number] FABIAN: 02/07/18 STATUS: RES REQ #: [id number] RECD: 02/07/[address]: TREE VALLES MD SOURCE: VIVI ENTR: 02/08/18 DR: ROYCE DE LA FUENTE II, MD [facility]: LEFT ORDERED: HEAVEN/BHAVNA/YAZMIN Procedure Result ANAEROBIC-AEROBIC CULTURE PENDING ANAEROBIC RES 1 PENDING AEROBIC CULT PENDING AEROBIC RES 1 PENDING GRAM STAIN Final Final report GRAM STAIN RES 1 Final Comment Many white blood cells. GRAM STAIN RES 2 Final Comment Gram positive cocci in clusters Rare seen Performed at: DA - [facility] [address], [place], [place] [id number] Quality Process Auditor: GEOVANY Saenz MD, Phone: [phone] Objective: Assessment: 1. Severe cellulitis with abscess of left lower leg, status post irrigation and debridement excisional skin and subcutaneous tissue with wound VAC application on 02/07/2018. awaiting repeat I and D 02/09 2. Fever. 3. Leukocytosis. 4. Diabetes type 2, poorly controlled. 5. Schizophrenia. 6. Hypertension. Plan: Plan of Care Cont vanc and zosyn monitor renal func closely Pre-op steroids 02/07 awaiting surgery again today F/u culture results Monitor WBC/temp/renal function and leg closely Pain management per primary Wound care ADONIS DE LEON MD Feb 09, 2018 09:07
[2018-02-09] MEDS ORDERED: POTASSIUM CHLORIDE 20 MEQ TABLET.ER. PO ONE ×2 (09:15→13:45)
[2018-02-09] MEDS: VANCOMYCIN PER PHARMACY MC PRN ×3 (10:56→17:18)
[2018-02-09] MEDS ORDERED: fentaNYL PF VIAL 100 MCG/2 ML VIAL ONE (11:17)
[2018-02-09] MEDS ORDERED: FAMOTIDINE 20 MG/2 ML VIAL ONE (11:17)
[2018-02-09] MEDS ORDERED: DEXAMETHASONE SOD PHOS 20 MG/5 ML VIAL. ONE (11:17)
[2018-02-09] MEDS ORDERED: PROPOFOL 20 ML IV ONE (11:17)
[2018-02-09] MEDS ORDERED: ONDANSETRON PF 4 MG/2 ML VIAL. ONE (11:17)
[2018-02-09] MEDS ORDERED: MIDAZOLAM HCL/PF 2 MG/2 ML VIAL. ONE (11:18)
--- NOTE | 2018-02-09 12:11 | PDOC ---
PROGRESS NOTES Subjective In OR, sugar has still been elevated despite being NPO overnight and now on insulin, Meropenem changed to Zosyn Objective Afebrile WBC: 9.7 Hgb: 11.9 K+: 3.4 Creat: 0.7 Vital Signs Vital Signs Date Time Temp Pulse Resp B/P (MAP) Pulse Ox O2 Delivery O2 Flow Rate FiO2 02/09/18 09:57 97.4 92 22 133/89 94 Nasal Cannula 97.4 02/08/18 20:00 2.0 I & O Intake and Output 02/09/18 07:00 Intake Total 1280 ml Balance 1280 ml Intake Oral 1280 ml # Voids 5 # Bowel Movements 2 Assessment and Plan 1. Abscess/cellulitis of the left lower extremity with sepsis, s/p bedside and OR I&D, culture obtained (gram + cocci in clusters), wound vac in place, ID seeing, currently on Zosyn and Vanco, discussed with Dr. Chu 2. Uncontrolled type 2 diabetes - added SSI without improvement so will increase routine basal/bolus insulin and resume metformin, awaiting A1c. 3. Hypertension - controlled, continue home meds. 4. Schizophrenia, controlled, continue home meds. Nadiya WINSTON MD Feb 09, 2018 12:11
[2018-02-09] MEDS ORDERED: SEVOFLURANE 16 TO 30 MINUTES. IH ONE (12:23)
[2018-02-09] MEDS ORDERED: INSULIN LISPRO 100 UNIT/ML 3ML VIAL. SQ ONE (12:30)
[2018-02-09] MEDS: HYDROcodone/APAP 5/325MG 1 TAB TABLET PO PRN (13:41)
--- NOTE | 2018-02-09 13:42 | PDOC4 ---
Operative Note Operative Note Date of procedure: 02/09/2018 Surgeon: Daryl De La Fuente Preoperative diagnosis: Left lower extremity cellulitis with abscess, status post wound VAC application after irrigation and debridement Postoperative diagnosis same Procedure performed: application of wound VAC to wound 3 cm in diameter, irrigation and debridement of skin and subcutaneous tissue, excisional, delayed primary wound closure of wounds totaling 10 cm Anesthesia: Gen. Findings: with the exception of the anterior proximal tibial, the remainder of the wounds looked clean and had some granulation tissue already present. The proximal tibial wound and necrotic debris at the edges and at the base. Complications: None Tourniquet time: None used Reason for procedure: Patient is a very pleasant 52-year-old female who had seen in consultation performed irrigation and debridement and wound VAC Dictation. Please see my consult note for further details. Her clinical course and improved and I elected to close her wounds primarily as her cellulitis was improving around them. I discussed the risks, benefits, alternatives and rationale to this with her and she elected to proceed. Description of procedure: Patient was greeted in the preoperative area by myself for the correct extremity was verified and marked. She was taken to the operative suite, maintained on her scheduled antibiotics. Once in the operative room, she was transferred gently supine to the operating table and secured to bed with all pressure points padded. She underwent successful induction of a general anesthetic. We then remove the wound VAC from her left lower extremity. The left lower extremity was then prepped and draped in our usual sterile fashion using Betadine. After this, I began my irrigation with 3000 L of sterile saline over the 4 areas I had irrigated and debrided prior. These wounds were all fairly clean in appearance, with the exception of the proximal anterior tibial wound, debrided this with a scalpel and Rominger as well as curet, removing skin and subcutaneous tissue. There is a small amount of subcutaneous tissue I removed with a Rominger from each. After this, I used irrigation at these 4 areas. The leg was dried. I then closed skin with a comminution of simple interrupted and vertical mattress 2-0 nylon. Skin was closed over a drain at midcalf laterally. After this, the leg was cleansed and dried and a sterile dressing was applied. I then applied the wound VAC and ensured it had a good seal over her proximal anterior tibial wound. At the conclusion, she is awake from anesthesia and transferred gently supine to the hospital bed. She's taken to the PACU in a stable and extubated condition. Postoperative plan is admit her back to the care of her primary care provider. Antibiotics per infectious disease. I'll follow along. DARYL DE LA FUENTE II, MD Feb 09, 2018 13:42
[2018-02-09 16:36] LABS: VANC TR 18.5 mcg/mL (10.0-20.0)
[2018-02-09] MEDS: ALPRAZolam 0.5 MG TABLET PO PRN (20:55)
[2018-02-09] MEDS ORDERED: INSULIN GLARGINE 300 UNITS/3 ML INSULN.PEN. SQ SCH (21:00)
[2018-02-09 23:12] LABS: HEMOGLOBIN A1C 14.2 % (4.8-5.6)
[2018-02-10] MEDS: PIPERACILLIN/TAZOBACTAM 3.375 GM in IV NORMAL SALINE 50ML 50 ML IV SCH ×4 (00:18→18:00)
[2018-02-10 03:39] VITALS: BP 148/97
[2018-02-10] MEDS: VANCOMYCIN 1.75 GM in IV NORMAL SALINE 500ML BAG 500 ML IV SCH (04:14)
[2018-02-10 07:00] VITALS: BP 143/62
[2018-02-10] MEDS: INSULIN LISPRO 300 UNITS/3 ML INSULN.PEN. SQ SCH ×6 (08:00→18:37)
[2018-02-10] MEDS: hydroCHLOROthiazide 25 MG TABLET PO SCH (09:27)
[2018-02-10] MEDS: LURASIDONE 40 MG TABLET. PO SCH (09:27)
[2018-02-10] MEDS: metFORMIN 500 MG TABLET PO SCH (09:28)
[2018-02-10] MEDS: NYSTATIN TOPICAL POWDER 15GM BOTTLE. TP SCH ×2 (09:28→21:37)
[2018-02-10] MEDS: LACTOBACILLUS RHAMNOSUS GG 1 CAPSULE. PO SCH ×2 (09:28→21:37)
[2018-02-10] MEDS: LISINOPRIL 20 MG TABLET PO SCH (09:28)
--- NOTE | 2018-02-10 10:38 | PDOC ---
Infectious Disease Note Subjective: Subjective Pt says pain in the lt leg surgery site is slightly better has wound vac in place no f/cn/v/d/abdo pain ROS: ROS Negative except for above. Vital Signs: Vital Signs Vital Signs Date Time Temp Pulse Resp B/P (MAP) Pulse Ox O2 Delivery O2 Flow Rate FiO2 02/10/18 09:28 87 143/62 02/10/18 08:15 Room Air 02/10/18 07:00 98.1 16 92 98.1 02/09/18 15:27 2.0 Physical Exam: PHYSICAL EXAM GEN AxOx3 male in nad HEENT: Pupils equally round. Oral mucosa is pink and moist. Poor dentition. She has few pustules below her nose. Facial hair noted. NECK: Supple. LUNGS: Clear to auscultation. HEART: S1, S2. ABDOMEN: Obese, bowel sounds active, soft, nontender. She has some yeast under the pannus area. EXTREMITIES: She has multiple small scabs right lower leg. Her left lower leg is edematous, warm and erythematous with wound VAC in place. She also has two wounds that are packed with gauze. Distal pulses palpable. SKIN: Warm without rash. Few skin tags noted. NEUROLOGIC: Alert, responds appropriately and follows simple commands. Medications: Inpatient Meds: Current Medications Medications (Trade) Dose Ordered Sig/Jacobo Start Time Stop Time Status Last Admin Dose Admin Acetaminophen/ Hydrocodone Bitart (Lortab 5/325) 2 tab PRN QID PRN 02/07/18 11:30 02/08/18 16:24 2 TAB Alprazolam (Xanax) 0.5 mg PRN Q8HRS PRN 02/09/18 20:30 02/09/18 20:55 0.5 MG Bupivacaine HCl (Sensorcaine Mpf 0.5%) 30 ml STK-MED ONCE 02/07/18 13:39 02/07/18 14:39 DC Dexamethasone Sodium Phosphate (Decadron) 20 mg STK-MED ONCE 02/09/18 11:17 02/09/18 11:18 DC Dextrose (Dextrose 50%-Water Syringe) 12.5 gm PRN Q15MIN PRN 02/07/18 09:30 Famotidine (Pepcid Vial) 20 mg STK-MED ONCE 02/09/18 11:17 02/09/18 11:18 DC Fentanyl Citrate (Fentanyl 2ml Vial) 100 mcg STK-MED ONCE 02/09/18 11:17 02/09/18 11:18 DC Hydrochlorothiazide (Hydrodiuril) 25 mg DAILY 02/07/18 10:00 02/10/18 09:27 25 MG Hydromorphone HCl (Dilaudid) 0.5 mg PRN Q10MIN PRN 02/07/18 12:30 02/07/18 19:00 DC Insulin Glargine (Lantus) 45 units QHS 02/10/18 21:00 Insulin Human Lispro (HumaLOG VIAL) 2 unit 1X ONCE 02/09/18 12:30 02/09/18 12:31 DC 02/09/18 12:27 2 UNIT Insulin Human Lispro (HumaLOG) 25 units TIDWMEALS 02/10/18 12:00 Lactobacillus Rhamnosus (Culturelle) 1 cap BID 02/08/18 21:00 02/10/18 09:28 1 CAP Lidocaine HCl 20 ml STK-MED ONCE 02/07/18 13:38 02/07/18 14:39 DC Lidocaine HCl (Xylocaine-Mpf 1% 2ml Vial) 2 ml 1X PRN PRN 02/07/18 12:30 02/07/18 19:00 DC Lidocaine HCl (Xylocaine-Mpf 2% Vial) 10 ml 1X ONCE 02/07/18 09:30 02/07/18 09:31 Cancel Lisinopril (Prinivil) 20 mg DAILY 02/07/18 10:00 02/10/18 09:28 20 MG Lurasidone HCl (Latuda) 140 mg DAILYWBKFT 02/08/18 08:00 02/10/18 09:27 140 MG Meropenem 500 mg/ Sodium Chloride 50 ml @ 100 mls/hr Q8HRS 02/07/18 06:00 02/08/18 14:21 DC 02/08/18 06:05 100 MLS/HR Metformin HCl (Glucophage) 500 mg 1000 02/08/18 17:00 02/10/18 09:28 500 MG Midazolam HCl (Versed) 2 mg STK-MED ONCE 02/09/18 11:18 02/09/18 11:19 DC Morphine Sulfate (Morphine Sulfate) 1 mg PRN Q10MIN PRN 02/07/18 12:30 02/07/18 19:00 DC Non-Formulary Medication (Lurasidone Hcl (Latuda)) 120 mg DAILY 02/08/18 09:00 UNV Nystatin (Nystop) 1 padmini BID 02/07/18 21:30 02/10/18 09:28 1 PADMINI Ondansetron HCl (Zofran) 4 mg STK-MED ONCE 02/09/18 11:17 02/09/18 11:18 DC Piperacillin Sod/ Tazobactam Sod 3.375 gm/Sodium Chloride 50 ml @ 100 mls/hr Q6HRS 02/08/18 18:00 02/10/18 06:17 100 MLS/HR Potassium Chloride (Klor-Con) 20 meq 1X ONCE 02/09/18 13:45 02/09/18 13:46 DC 02/09/18 13:41 20 MEQ Prochlorperazine Edisylate (Compazine) 5 mg PACU PRN PRN 02/07/18 12:30 02/07/18 19:00 DC Propofol 20 ml @ As Directed STK-MED ONCE 02/09/18 11:17 02/09/18 11:18 DC Ringer's Solution 1,000 ml @ 30 mls/hr Q24H 02/07/18 12:27 02/08/18 00:26 DC Sevoflurane (Ultane) 15 ml STK-MED ONCE 02/09/18 12:23 02/09/18 12:24 DC Sodium Chloride 1,000 ml @ 150 mls/hr Q6H40M 02/07/18 02:00 02/08/18 01:59 DC 02/07/18 18:39 150 MLS/HR Vancomycin HCl (Vanco Per Pharmacy) 1 each PRN DAILY PRN 02/07/18 01:00 02/09/18 17:18 1 EACH Vancomycin HCl (Vancomycin Trough Level) 1 each 1X ONCE 02/09/18 15:30 02/09/18 15:31 DC Vancomycin HCl 1.75 gm/Sodium Chloride 500 ml @ 250 mls/hr Q12H 02/08/18 16:00 02/10/18 04:14 250 MLS/HR Vancomycin HCl 2 gm/Sodium Chloride 500 ml @ 250 mls/hr 1X ONCE 02/07/18 01:00 02/07/18 02:59 DC 02/07/18 01:00 250 MLS/HR Labs: Lab Laboratory Tests Test 02/09/18 11:16 02/09/18 12:18 02/09/18 15:25 02/09/18 17:05 Glucose (Fingerstick) 195 mg/dL (70-99) 186 mg/dL (70-99) 354 mg/dL (70-99) Vancomycin Level Trough 18.5 mcg/mL (10.0-20.0) Vancomycin Last Dose Date 02/09/18 Vancomycin Last Dose Time 0400 Test 02/09/18 20:11 02/10/18 08:06 Glucose (Fingerstick) 403 mg/dL (70-99) 222 mg/dL (70-99) Micro RUN DATE: 02/09/18 PAGE 1 RUN TIME: 021 [facility] [address] [place] [address] Celso Santillan M.D., Construction Foreman PATIENT: RAMÓN SCHOFIELD ACCT: [id number] LOC: [address] [place] [address] U : [id number] AGE/SX: 52/F ROOM: 404 REG : 02/07/[address]: TREE VALLES MD : 1965 BED: 1 DIS : STATUS: ADM IN TLOC: SPEC #: [id number] FABIAN: 02/07/18 STATUS: RES REQ #: [id number] RECD: 02/07/[address] [facility] DR: TREE VALLES MD SOURCE: LEG ENTR: 02/08/[address] [facility] [address]: ROYCE DE LA FUENTE II, MD [facility]: LEFT ORDERED: ANAER/AEROB/GS Procedure Result ANAEROBIC-AEROBIC CULTURE PENDING ANAEROBIC RES 1 PENDING AEROBIC CULT PENDING AEROBIC RES 1 PENDING GRAM STAIN Final Final report GRAM STAIN RES 1 Final Comment Many white blood cells. GRAM STAIN RES 2 Final Comment Gram positive cocci in clusters Rare seen Performed at: - [facility], [place], [place] [id number] Aging Room Hand: GEOVANY Saenz MD, Phone: [phone] Objective: Assessment: 1. Severe cellulitis with abscess of left lower leg, status post irrigation and debridement excisional skin and subcutaneous tissue with wound VAC application on 02/07/2018. Cult GPC , ID and CHRISTI pending s/ p repeat I and D 02/09 2. Fever.resolved 3. Leukocytosis.resolved 4. Diabetes type 2, poorly controlled. 5. Schizophrenia. 6. Hypertension. Plan: Plan of Care Intraop cults are pending Cont zosyn DC Vanc vanc trough was high > 20 on 02/08 vanc trough 02/09 down to 18.5 start zyvox may be ready for dc home tomorrow if stable and depending on cult results on po antibiotics SW to assist with home supply of zyvox Pre-op steroids 02/07 F/u culture results Monitor WBC/temp/renal function and leg closely Pain management per primary Wound care D/W ADONIS ALVARADO MD Feb 10, 2018 10:38
[2018-02-10 11:00] VITALS: BP 147/67
--- NOTE | 2018-02-10 13:12 | PDOC ---
ORTHO PROGRESS NOTES Subjective She tells me her left leg still hurts. It is better compared to yesterday. Vitals Vital Signs Date Time Temp Pulse Resp B/P (MAP) Pulse Ox O2 Delivery O2 Flow Rate FiO2 02/10/18 11:00 98.1 97 16 147/67 (93) 96 Room Air 98.1 02/09/18 15:27 2.0 Labs Laboratory Tests Test 02/08/18 16:37 02/08/18 20:47 02/09/18 03:25 02/09/18 07:31 Glucose (Fingerstick) 300 mg/dL (70-99) 343 mg/dL (70-99) 291 mg/dL (70-99) White Blood Count 9.7 x10^3/uL (4.0-11.0) Red Blood Count 4.02 x10^6/uL (3.50-5.40) Hemoglobin 11.9 g/dL (12.0-15.5) Hematocrit 35.6 % (36.0-47.0) Mean Corpuscular Volume 89 fL (79-100) Mean Corpuscular Hemoglobin 30 pg (25-35) Mean Corpuscular Hemoglobin Concent 34 g/dL (31-37) Red Cell Distribution Width 13.5 % (11.5-14.5) Platelet Count 396 x10^3/uL (140-400) Neutrophils (%) (Auto) 63 % (31-73) Lymphocytes (%) (Auto) 29 % (24-48) Monocytes (%) (Auto) 7 % (0-9) Eosinophils (%) (Auto) 1 % (0-3) Basophils (%) (Auto) 1 % (0-3) Neutrophils # (Auto) 6.1 x10^3uL (1.8-7.7) Lymphocytes # (Auto) 2.8 x10^3/uL (1.0-4.8) Monocytes # (Auto) 0.6 x10^3/uL (0.0-1.1) Eosinophils # (Auto) 0.1 x10^3/uL (0.0-0.7) Basophils # (Auto) 0.1 x10^3/uL (0.0-0.2) Sodium Level 139 mmol/L (136-145) Potassium Level 3.4 mmol/L (3.5-5.1) Chloride Level 103 mmol/L (98-107) Carbon Dioxide Level 27 mmol/L (21-32) Anion Gap 9 (6-14) Blood Urea Nitrogen 11 mg/dL (7-20) Creatinine 0.8 mg/dL (0.6-1.0) Estimated GFR (Cockcroft-Gault) 75.0 Glucose Level 342 mg/dL (70-99) Calcium Level 9.1 mg/dL (8.5-10.1) Test 02/09/18 11:16 02/09/18 12:18 02/09/18 15:25 02/09/18 17:05 Glucose (Fingerstick) 195 mg/dL (70-99) 186 mg/dL (70-99) 354 mg/dL (70-99) Vancomycin Level Trough 18.5 mcg/mL (10.0-20.0) Vancomycin Last Dose Date 02/09/18 Vancomycin Last Dose Time 0400 Test 02/09/18 20:11 02/10/18 08:06 02/10/18 11:13 Glucose (Fingerstick) 403 mg/dL (70-99) 222 mg/dL (70-99) 270 mg/dL (70-99) Laboratory Tests Test 02/09/18 15:25 02/09/18 17:05 02/09/18 20:11 02/10/18 08:06 Vancomycin Level Trough 18.5 mcg/mL (10.0-20.0) Vancomycin Last Dose Date 02/09/18 Vancomycin Last Dose Time 0400 Glucose (Fingerstick) 354 mg/dL (70-99) 403 mg/dL (70-99) 222 mg/dL (70-99) Test 02/10/18 11:13 Glucose (Fingerstick) 270 mg/dL (70-99) Notes She is awake and alert. Examination of her left lower extensor reveals marked edema. Cellulitis is better. Wound VAC is in place with a good seal. Assessment and Plan She will go home with the wound VAC. I discussed her care with the wound care team. She can weight-bear as tolerated. Antibiotic spur infectious disease. From my standpoint she can be discharged whenever everything is or needed. She should follow up with me in 2 weeks or so. ROYCE DE LA FUENTE II, MD Feb 10, 2018 13:12
[2018-02-10] MEDS: ENOXAPARIN 40 MG/0.4 ML SYRINGE. SQ SCH (13:13)
--- NOTE | 2018-02-10 13:37 | PDOC ---
PROGRESS NOTES Subjective Culture still pending, leg redness improved, no fever, ortho ready for her to discharge, sugars still high despite increasing insulin doses Objective Afebrile General: A&O Heart: RRR Lungs: CTA Abd: soft, non tender Ext: left leg cellulitis improved substantially in color, wound vac in place Vital Signs Vital Signs Date Time Temp Pulse Resp B/P (MAP) Pulse Ox O2 Delivery O2 Flow Rate FiO2 02/10/18 11:00 98.1 97 16 147/67 (93) 96 Room Air 98.1 02/09/18 15:27 2.0 I & O Intake and Output 02/10/18 07:00 Intake Total 690 ml Output Total 25 ml Balance 665 ml Intake Oral 640 ml IV Total 50 ml Estimated Blood Loss 25 ml # Voids 4 Assessment and Plan 1. Abscess/cellulitis of the left lower extremity with sepsis, s/p bedside and OR I&D, culture obtained (gram + cocci in clusters), wound vac in place, ID seeing, currently on Zosyn and Zyvox 2. Uncontrolled type 2 diabetes - added SSI without improvement so will continue to increase routine basal/bolus insulin, resumed metformin, A1c > 14. 3. Hypertension - controlled, continue home meds. 4. Schizophrenia, controlled, continue home meds. 5. severe protein malnutrition present on admission Nadiya WINSTON MD Feb 10, 2018 13:37
[2018-02-10 15:00] VITALS: BP 133/84
[2018-02-10 19:00] VITALS: BP 135/101
[2018-02-10] MEDS: LINEZOLID 600 MG TABLET PO SCH (21:37)
[2018-02-10] MEDS: ALPRAZolam 0.5 MG TABLET PO PRN (21:37)
[2018-02-10] MEDS: INSULIN GLARGINE 300 UNITS/3 ML INSULN.PEN. SQ SCH (22:55)
[2018-02-10 23:00] VITALS: BP 110/59
[2018-02-11] MEDS: PIPERACILLIN/TAZOBACTAM 3.375 GM in IV NORMAL SALINE 50ML 50 ML IV SCH ×5 (00:20→23:41)
[2018-02-11 02:46] VITALS: BP 144/76
[2018-02-11 07:00] VITALS: BP 132/90
[2018-02-11] MEDS: INSULIN LISPRO 300 UNITS/3 ML INSULN.PEN. SQ SCH ×6 (08:00→16:54)
[2018-02-11] MEDS: metFORMIN 500 MG TABLET PO SCH (08:57)
[2018-02-11] MEDS: LINEZOLID 600 MG TABLET PO SCH ×2 (08:58→20:59)
[2018-02-11] MEDS: LISINOPRIL 20 MG TABLET PO SCH (08:58)
[2018-02-11] MEDS: LACTOBACILLUS RHAMNOSUS GG 1 CAPSULE. PO SCH ×2 (08:58→20:59)
[2018-02-11] MEDS: hydroCHLOROthiazide 25 MG TABLET PO SCH (08:58)
[2018-02-11] MEDS: NYSTATIN TOPICAL POWDER 15GM BOTTLE. TP SCH ×2 (08:58→21:08)
[2018-02-11] MEDS: LURASIDONE 40 MG TABLET. PO SCH (08:59)
[2018-02-11 11:00] VITALS: BP 150/106
--- NOTE | 2018-02-11 11:39 | PDOC ---
Infectious Disease Note Subjective: Subjective Pt says doing ok pain at postop site is under control has wound vac in place no f/cn/v/d/abdo pain ROS: ROS Negative except for above. Vital Signs: Vital Signs Vital Signs Date Time Temp Pulse Resp B/P (MAP) Pulse Ox O2 Delivery O2 Flow Rate FiO2 02/11/18 11:00 98.1 93 18 150/106 (121) 94 Room Air 98.1 Physical Exam: PHYSICAL EXAM GEN AxOx3 male in nad HEENT: Pupils equally round. Oral mucosa is pink and moist. Poor dentition. She has few pustules below her nose. Facial hair noted. NECK: Supple. LUNGS: Clear to auscultation. HEART: S1, S2. ABDOMEN: Obese, bowel sounds active, soft, nontender. She has some yeast under the pannus area. EXTREMITIES: She has multiple small scabs right lower leg. Her left lower leg is edematous, warm and erythematous with wound VAC in place. She also has two wounds that are packed with gauze. Distal pulses palpable. SKIN: Warm without rash. Few skin tags noted. NEUROLOGIC: Alert, responds appropriately and follows simple commands. Medications: Inpatient Meds: Current Medications Medications (Trade) Dose Ordered Sig/Jacobo Start Time Stop Time Status Last Admin Dose Admin Acetaminophen/ Hydrocodone Bitart (Lortab 5/325) 2 tab PRN QID PRN 02/07/18 11:30 02/08/18 16:24 2 TAB Alprazolam (Xanax) 0.5 mg PRN Q8HRS PRN 02/09/18 20:30 02/10/18 21:37 0.5 MG Bupivacaine HCl (Sensorcaine Mpf 0.5%) 30 ml STK-MED ONCE 02/07/18 13:39 02/07/18 14:39 DC Dexamethasone Sodium Phosphate (Decadron) 20 mg STK-MED ONCE 02/09/18 11:17 02/09/18 11:18 DC Dextrose (Dextrose 50%-Water Syringe) 12.5 gm PRN Q15MIN PRN 02/07/18 09:30 02/10/18 22:00 12.5 GM Enoxaparin Sodium (Lovenox 40mg Syringe) 40 mg Q24H 02/10/18 12:00 02/10/18 13:13 40 MG Enoxaparin Sodium (Lovenox Per Pharmacy Prophylaxis Dosing) 1 each PRN DAILY PRN 02/10/18 11:00 Famotidine (Pepcid Vial) 20 mg STK-MED ONCE 02/09/18 11:17 02/09/18 11:18 DC Fentanyl Citrate (Fentanyl 2ml Vial) 100 mcg STK-MED ONCE 02/09/18 11:17 02/09/18 11:18 DC Hydrochlorothiazide (Hydrodiuril) 25 mg DAILY 02/07/18 10:00 02/11/18 08:58 25 MG Hydromorphone HCl (Dilaudid) 0.5 mg PRN Q10MIN PRN 02/07/18 12:30 02/07/18 19:00 DC Insulin Glargine (Lantus) 45 units QHS 02/10/18 21:00 02/10/18 22:55 30 UNITS Insulin Human Lispro (HumaLOG VIAL) 2 unit 1X ONCE 02/09/18 12:30 02/09/18 12:31 DC 02/09/18 12:27 2 UNIT Insulin Human Lispro (HumaLOG) 25 units TIDWMEALS 02/10/18 12:00 02/10/18 18:37 25 UNITS Lactobacillus Rhamnosus (Culturelle) 1 cap BID 02/08/18 21:00 02/11/18 08:58 1 CAP Lidocaine HCl 20 ml STK-MED ONCE 02/07/18 13:38 02/07/18 14:39 DC Lidocaine HCl (Xylocaine-Mpf 1% 2ml Vial) 2 ml 1X PRN PRN 02/07/18 12:30 02/07/18 19:00 DC Lidocaine HCl (Xylocaine-Mpf 2% Vial) 10 ml 1X ONCE 02/07/18 09:30 02/07/18 09:31 Cancel Linezolid (Zyvox) 600 mg BID 02/10/18 21:00 02/11/18 08:58 600 MG Lisinopril (Prinivil) 20 mg DAILY 02/07/18 10:00 02/11/18 08:58 20 MG Lurasidone HCl (Latuda) 140 mg DAILYWBKFT 02/08/18 08:00 02/11/18 08:59 140 MG Meropenem 500 mg/ Sodium Chloride 50 ml @ 100 mls/hr Q8HRS 02/07/18 06:00 02/08/18 14:21 DC 02/08/18 06:05 100 MLS/HR Metformin HCl (Glucophage) 500 mg 1000 02/08/18 17:00 02/11/18 08:57 500 MG Midazolam HCl (Versed) 2 mg STK-MED ONCE 02/09/18 11:18 02/09/18 11:19 DC Morphine Sulfate (Morphine Sulfate) 1 mg PRN Q10MIN PRN 02/07/18 12:30 02/07/18 19:00 DC Non-Formulary Medication (Lurasidone Hcl (Latuda)) 120 mg DAILY 02/08/18 09:00 UNV Nystatin (Nystop) 1 padmini BID 02/07/18 21:30 02/11/18 08:58 1 PADMINI Ondansetron HCl (Zofran) 4 mg STK-MED ONCE 02/09/18 11:17 02/09/18 11:18 DC Piperacillin Sod/ Tazobactam Sod 3.375 gm/Sodium Chloride 50 ml @ 100 mls/hr Q6HRS 02/08/18 18:00 02/11/18 06:15 100 MLS/HR Potassium Chloride (Klor-Con) 20 meq 1X ONCE 02/09/18 13:45 02/09/18 13:46 DC 02/09/18 13:41 20 MEQ Prochlorperazine Edisylate (Compazine) 5 mg PACU PRN PRN 02/07/18 12:30 02/07/18 19:00 DC Propofol 20 ml @ As Directed STK-MED ONCE 02/09/18 11:17 02/09/18 11:18 DC Ringer's Solution 1,000 ml @ 30 mls/hr Q24H 02/07/18 12:27 02/08/18 00:26 DC Sevoflurane (Ultane) 15 ml STK-MED ONCE 02/09/18 12:23 02/09/18 12:24 DC Sodium Chloride 1,000 ml @ 150 mls/hr Q6H40M 02/07/18 02:00 02/08/18 01:59 DC 02/07/18 18:39 150 MLS/HR Vancomycin HCl (Vanco Per Pharmacy) 1 each PRN DAILY PRN 02/07/18 01:00 02/10/18 10:41 DC 02/09/18 17:18 1 EACH Vancomycin HCl (Vancomycin Trough Level) 1 each 1X ONCE 02/09/18 15:30 02/09/18 15:31 DC Vancomycin HCl 1.75 gm/Sodium Chloride 500 ml @ 250 mls/hr Q12H 02/08/18 16:00 02/10/18 10:41 DC 02/10/18 04:14 250 MLS/HR Vancomycin HCl 2 gm/Sodium Chloride 500 ml @ 250 mls/hr 1X ONCE 02/07/18 01:00 02/07/18 02:59 DC 02/07/18 01:00 250 MLS/HR Labs: Lab Laboratory Tests Test 02/10/18 18:30 02/10/18 21:41 02/10/18 22:46 02/11/18 00:42 Glucose (Fingerstick) 158 mg/dL (70-99) 58 mg/dL (70-99) 138 mg/dL (70-99) 120 mg/dL (70-99) Test 02/11/18 07:44 Glucose (Fingerstick) 111 mg/dL (70-99) Micro RUN DATE: 02/09/18 PAGE 1 RUN TIME: 209 [facility] [address] [place] [address] Celso Santillan M.D., Body Make Up Artist PATIENT: RAMÓN SCHOFIELD ACCT: [id number] LOC: [address] [place] [address] U : [id number] AGE/SX: 52/F ROOM: 404 REG : 02/07/[address]: TREE VALLES MD : 1965 BED: 1 DIS : STATUS: ADM IN TLOC: SPEC #: [id number] FABIAN: 02/07/18 STATUS: RES REQ #: [id number] RECD: 02/07/[address] [facility] [address]: TREE VALLES MD SOURCE: LEG ENTR: 02/08/[address] [facility] [address]: ROYCE DE LA FUENTE II, MD [facility]: LEFT ORDERED: ANAER/AEROB/GS Procedure Result ANAEROBIC-AEROBIC CULTURE PENDING ANAEROBIC RES 1 PENDING AEROBIC CULT PENDING AEROBIC RES 1 PENDING GRAM STAIN Final Final report GRAM STAIN RES 1 Final Comment Many white blood cells. GRAM STAIN RES 2 Final Comment Gram positive cocci in clusters Rare seen Performed at: - [facility] [id number] [facility] [address], [place], [place] [id number] Soda Dialyzer: GEOVANY Saenz MD, Phone: [phone] Objective: Assessment: 1. Severe cellulitis with abscess of left lower leg, status post irrigation and debridement excisional skin and subcutaneous tissue with wound VAC application on 02/07/2018. Cult GPC , ID and CHRISTI pending s/ p repeat I and D 02/09, no bone involvement 2. Fever.resolved 3. Leukocytosis.resolved 4. Diabetes type 2, poorly controlled. 5. Schizophrenia. 6. Hypertension. Plan: Plan of Care Intraop cults are pending Cont zosyn and zyvox when ready for dc home can transition to po augmentin 875mg po bid and zyvox for 2 weeks wound vac care per ortho f/u with us in 2 weeks D/W ADONIS ALVARADO MD Feb 11, 2018 11:39
[2018-02-11] MEDS: ENOXAPARIN 40 MG/0.4 ML SYRINGE. SQ SCH (12:21)
[2018-02-11] MEDS: HYDROcodone/APAP 5/325MG 1 TAB TABLET PO PRN (14:30)
[2018-02-11 15:00] VITALS: BP 140/99
--- NOTE | 2018-02-11 16:49 | PDOC ---
PROGRESS NOTES Subjective Her leg has improved dramatically, still has wound vac, she refuses to do insulin shots though Objective Afebrile General: NAD Heart: RRR Lungs: CTAB Abd: soft, non distended Ext: wound vac left leg, dressing just reapplied by wound care, erythema has dramatically improved sugars noted Vital Signs Vital Signs Date Time Temp Pulse Resp B/P (MAP) Pulse Ox O2 Delivery O2 Flow Rate FiO2 02/11/18 15:45 93 Room Air 02/11/18 15:00 98.3 98 18 140/99 (113) 98.3 02/09/18 15:27 2.0 I & O Intake and Output 02/11/18 07:00 Intake Total 120 ml Balance 120 ml Intake Oral 120 ml # Voids 18 # Bowel Movements 3 Assessment and Plan 1. Abscess/cellulitis of the left lower extremity with sepsis, s/p bedside and OR I&D with second OR wound repair, culture obtained (gram + cocci in clusters - MSSA), wound vac in place, ID seeing, wound care following, currently on Zosyn and Zyvox 2. Uncontrolled type 2 diabetes - added SSI without improvement so will continue to increase routine basal/bolus insulin, resumed metformin, A1c > 14. She is refusing to do insulin, will look for placement 3. Hypertension - controlled, continue home meds. 4. Schizophrenia, controlled, continue home meds. 5. severe protein malnutrition present on admission Nadiya WINSTON MD Feb 11, 2018 16:49
[2018-02-11 19:46] VITALS: BP 145/96
[2018-02-11] MEDS: INSULIN GLARGINE 300 UNITS/3 ML INSULN.PEN. SQ SCH ×2 (21:04→21:22)
[2018-02-11 23:27] VITALS: BP 128/86
[2018-02-12 03:13] VITALS: BP 149/94
[2018-02-12] MEDS: PIPERACILLIN/TAZOBACTAM 3.375 GM in IV NORMAL SALINE 50ML 50 ML IV SCH (05:54)
[2018-02-12 07:00] VITALS: BP 145/96
[2018-02-12] MEDS: INSULIN LISPRO 300 UNITS/3 ML INSULN.PEN. SQ SCH ×6 (08:00→17:17)
--- NOTE | 2018-02-12 08:28 | PDOC ---
Infectious Disease Note Subjective: Subjective Pt says doing ok awaiting training for insulin injection for home pain at postop site is under control has wound vac in place no f/cn/v/d/abdo pain ROS: ROS Negative except for above. Vital Signs: Vital Signs Vital Signs Date Time Temp Pulse Resp B/P (MAP) Pulse Ox O2 Delivery O2 Flow Rate FiO2 02/12/18 03:13 98.4 82 16 149/94 (112) 92 Room Air 98.4 Physical Exam: PHYSICAL EXAM GEN AxOx3 male in nad HEENT: Pupils equally round. Oral mucosa is pink and moist. Poor dentition. She has few pustules below her nose. Facial hair noted. NECK: Supple. LUNGS: Clear to auscultation. HEART: S1, S2. ABDOMEN: Obese, bowel sounds active, soft, nontender. She has some yeast under the pannus area. EXTREMITIES: She has multiple small scabs right lower leg. Her left lower leg is edematous, warm and erythematous with wound VAC in place. She also has two wounds that are packed with gauze. Distal pulses palpable. SKIN: Warm without rash. Few skin tags noted. NEUROLOGIC: Alert, responds appropriately and follows simple commands. Medications: Inpatient Meds: Current Medications Medications (Trade) Dose Ordered Sig/Jacobo Start Time Stop Time Status Last Admin Dose Admin Acetaminophen/ Hydrocodone Bitart (Lortab 5/325) 2 tab PRN QID PRN 02/07/18 11:30 02/08/18 16:24 2 TAB Alprazolam (Xanax) 0.5 mg PRN Q8HRS PRN 02/09/18 20:30 02/10/18 21:37 0.5 MG Bupivacaine HCl (Sensorcaine Mpf 0.5%) 30 ml STK-MED ONCE 02/07/18 13:39 02/07/18 14:39 DC Dexamethasone Sodium Phosphate (Decadron) 20 mg STK-MED ONCE 02/09/18 11:17 02/09/18 11:18 DC Dextrose (Dextrose 50%-Water Syringe) 12.5 gm PRN Q15MIN PRN 02/07/18 09:30 02/10/18 22:00 12.5 GM Enoxaparin Sodium (Lovenox 40mg Syringe) 40 mg Q24H 02/10/18 12:00 02/11/18 12:21 40 MG Enoxaparin Sodium (Lovenox Per Pharmacy Prophylaxis Dosing) 1 each PRN DAILY PRN 02/10/18 11:00 Famotidine (Pepcid Vial) 20 mg STK-MED ONCE 02/09/18 11:17 02/09/18 11:18 DC Fentanyl Citrate (Fentanyl 2ml Vial) 100 mcg STK-MED ONCE 02/09/18 11:17 02/09/18 11:18 DC Hydrochlorothiazide (Hydrodiuril) 25 mg DAILY 02/07/18 10:00 02/11/18 08:58 25 MG Hydromorphone HCl (Dilaudid) 0.5 mg PRN Q10MIN PRN 02/07/18 12:30 02/07/18 19:00 DC Insulin Glargine (Lantus) 45 units QHS 02/10/18 21:00 02/11/18 21:22 45 UNITS Insulin Human Lispro (HumaLOG VIAL) 2 unit 1X ONCE 02/09/18 12:30 02/09/18 12:31 DC 02/09/18 12:27 2 UNIT Insulin Human Lispro (HumaLOG) 25 units TIDWMEALS 02/10/18 12:00 02/11/18 16:54 25 UNITS Lactobacillus Rhamnosus (Culturelle) 1 cap BID 02/08/18 21:00 02/11/18 20:59 1 CAP Lidocaine HCl 20 ml STK-MED ONCE 02/07/18 13:38 02/07/18 14:39 DC Lidocaine HCl (Xylocaine-Mpf 1% 2ml Vial) 2 ml 1X PRN PRN 02/07/18 12:30 02/07/18 19:00 DC Lidocaine HCl (Xylocaine-Mpf 2% Vial) 10 ml 1X ONCE 02/07/18 09:30 02/07/18 09:31 Cancel Linezolid (Zyvox) 600 mg BID 02/10/18 21:00 02/11/18 20:59 600 MG Lisinopril (Prinivil) 20 mg DAILY 02/07/18 10:00 02/11/18 08:58 20 MG Lurasidone HCl (Latuda) 140 mg DAILYWBKFT 02/08/18 08:00 02/11/18 08:59 140 MG Meropenem 500 mg/ Sodium Chloride 50 ml @ 100 mls/hr Q8HRS 02/07/18 06:00 02/08/18 14:21 DC 02/08/18 06:05 100 MLS/HR Metformin HCl (Glucophage) 500 mg 1000 02/08/18 17:00 02/11/18 08:57 500 MG Midazolam HCl (Versed) 2 mg STK-MED ONCE 02/09/18 11:18 02/09/18 11:19 DC Morphine Sulfate (Morphine Sulfate) 1 mg PRN Q10MIN PRN 02/07/18 12:30 02/07/18 19:00 DC Non-Formulary Medication (Lurasidone Hcl (Latuda)) 120 mg DAILY 02/08/18 09:00 UNV Nystatin (Nystop) 1 padmini BID 02/07/18 21:30 02/11/18 21:08 1 PADMINI Ondansetron HCl (Zofran) 4 mg STK-MED ONCE 02/09/18 11:17 02/09/18 11:18 DC Piperacillin Sod/ Tazobactam Sod 3.375 gm/Sodium Chloride 50 ml @ 100 mls/hr Q6HRS 02/08/18 18:00 02/12/18 05:54 100 MLS/HR Potassium Chloride (Klor-Con) 20 meq 1X ONCE 02/09/18 13:45 02/09/18 13:46 DC 02/09/18 13:41 20 MEQ Prochlorperazine Edisylate (Compazine) 5 mg PACU PRN PRN 02/07/18 12:30 02/07/18 19:00 DC Propofol 20 ml @ As Directed STK-MED ONCE 02/09/18 11:17 02/09/18 11:18 DC Ringer's Solution 1,000 ml @ 30 mls/hr Q24H 02/07/18 12:27 02/08/18 00:26 DC Sevoflurane (Ultane) 15 ml STK-MED ONCE 02/09/18 12:23 02/09/18 12:24 DC Sodium Chloride 1,000 ml @ 150 mls/hr Q6H40M 02/07/18 02:00 02/08/18 01:59 DC 02/07/18 18:39 150 MLS/HR Vancomycin HCl (Vanco Per Pharmacy) 1 each PRN DAILY PRN 02/07/18 01:00 02/10/18 10:41 DC 02/09/18 17:18 1 EACH Vancomycin HCl (Vancomycin Trough Level) 1 each 1X ONCE 02/09/18 15:30 02/09/18 15:31 DC Vancomycin HCl 1.75 gm/Sodium Chloride 500 ml @ 250 mls/hr Q12H 02/08/18 16:00 02/10/18 10:41 DC 02/10/18 04:14 250 MLS/HR Vancomycin HCl 2 gm/Sodium Chloride 500 ml @ 250 mls/hr 1X ONCE 02/07/18 01:00 02/07/18 02:59 DC 02/07/18 01:00 250 MLS/HR Labs: Lab Laboratory Tests Test 02/11/18 11:36 02/11/18 16:37 02/11/18 20:18 02/12/18 07:30 Glucose (Fingerstick) 273 mg/dL (70-99) 214 mg/dL (70-99) 142 mg/dL (70-99) 123 mg/dL (70-99) Micro RUN DATE: 02/11/18 PAGE 1 RUN TIME: 4738 [facility] [address] [place] [address] Celso Santillan M.D., Seasonal Warehouse Associate PATIENT: RAMÓN SCHOFIELD ACCT: [id number] LOC: [address] [place] [address] U : [id number] AGE/SX: 52/F ROOM: 404 REG : 02/07/[address]: TREE VALLES MD : 1965 BED: 1 DIS : STATUS: ADM IN TLOC: SPEC #: [id number] FABIAN: 02/07/18 STATUS: RES REQ #: [id number] RECD: 02/07/[address] [facility] [address]: TREE VALLES MD SOURCE: LEG ENTR: 02/08/18 [facility] DR: ROYCE DE LA FUENTE II[facility] LEFT ORDERED: ANAER/AEROB/GS Procedure Result ANAEROBIC-AEROBIC CULTURE Preliminary Preliminary report ANAEROBIC RES 1 Preliminary Comment No anaerobes recovered in 48 hours. AEROBIC CULT Final Final report AEROBIC RES 1 Final Staphylococcus aureus 4+ Based on susceptibility to oxacillin this isolate would be susceptible to: *Penicillinase-stable penicillins, such as: Cloxacillin, Dicloxacillin, Nafcillin *Beta-lactam combination agents, such as: Amoxicillin-clavulanic acid, Ampicillin-sulbactam, Piperacillin-tazobactam *Oral cephems, such as: Cefaclor, Cefdinir, Cefpodoxime, Cefprozil, Cefuroxime, Cephalexin, Loracarbef *Parenteral cephems, such as: Cefazolin, Cefepime, Cefotaxime, Cefotetan, Ceftaroline, Ceftizoxime, Ceftriaxone, Cefuroxime *Carbapenems, such as: Doripenem, Ertapenem, Imipenem, Meropenem ANTIMICROBIAL SUSCEPTIBILITY Final Comment S = Susceptible; I = Intermediate; R = Resistant P = Positive; N = Negative MICS are expressed in micrograms per mL Antibiotic RSLT#1 RSLT#2 RSLT#3 RSLT#4 Ciprofloxacin S<=0.5 CONTINUED ON NEXT PAGE RUN DATE: 02/11/18 PAGE 2 RUN TIME: 1652 [facility] [address] [place] [address] Celso Santillan M.D., Seasonal Warehouse Associate SPEC: [id number] PATIENT: RAMÓN SCHOFIELD [id number] ( Continued) Procedure Result ANTIMICROBIAL SUSCEPTIBILITY Final (continued) Clindamycin S<=0.25 Erythromycin S<=0.25 Gentamicin S<=0.5 Levofloxacin S =0.25 Linezolid S =2 Moxifloxacin S<=0.25 Oxacillin S<=0.25 Penicillin R>=0.5 Quinupristin/Dalfopristin S<=0.25 Rifampin S<=0.5 Tetracycline S<=1 Trimethoprim/Sulfa S<=10 Vancomycin S<=0.5 GRAM STAIN Final Final report GRAM STAIN RES 1 Final Comment No white blood cells seen. GRAM STAIN RES 2 Final Comment Gram positive cocci in clusters Few seen Performed at: - [facility] [address] [facility] [address], [place], [place] [id number] Wet Wash Assembler: GEOVANY Saenz MD, Phone: [phone] RUN DATE: 02/11/18 PAGE 1 RUN TIME: 1715 [facility] [address] [place] [address] Celso Santillan M.D., Seasonal Warehouse Associate PATIENT: RAMÓN SCHOFIELD ACCT: [id number] LOC: [address] [place] [address] U : [id number] AGE/SX: 52/F ROOM: 404 REG : 02/07/[address]: TREE VALLES MD : 1965 BED: 1 DIS : STATUS: ADM IN TLOC: SPEC #: [id number] FABIAN: 02/07/18 STATUS: RES REQ #: [id number] RECD: 02/07/[address] [facility] [address]: TREE VALLES MD SOURCE: LEG ENTR: 02/08/18 [facility] DR: ROYCE DE LA FUENTE II, MD [facility]: LEFT ORDERED: ANAER/AEROB/GS Procedure Result ANAEROBIC-AEROBIC CULTURE Preliminary Preliminary report ANAEROBIC RES 1 Preliminary Comment No anaerobes recovered in 48 hours. AEROBIC CULT Final Final report AEROBIC RES 1 Final Staphylococcus aureus 2+ Based on susceptibility to oxacillin this isolate would be susceptible to: *Penicillinase-stable penicillins, such as: Cloxacillin, Dicloxacillin, Nafcillin *Beta-lactam combination agents, such as: Amoxicillin-clavulanic acid, Ampicillin-sulbactam, Piperacillin-tazobactam *Oral cephems, such as: Cefaclor, Cefdinir, Cefpodoxime, Cefprozil, Cefuroxime, Cephalexin, Loracarbef *Parenteral cephems, such as: Cefazolin, Cefepime, Cefotaxime, Cefotetan, Ceftaroline, Ceftizoxime, Ceftriaxone, Cefuroxime *Carbapenems, such as: Doripenem, Ertapenem, Imipenem, Meropenem ANTIMICROBIAL SUSCEPTIBILITY Final Comment S = Susceptible; I = Intermediate; R = Resistant P = Positive; N = Negative MICS are expressed in micrograms per mL Antibiotic RSLT#1 RSLT#2 RSLT#3 RSLT#4 Ciprofloxacin S<=0.5 CONTINUED ON NEXT PAGE RUN DATE: 02/11/18 PAGE 2 RUN TIME: 3873 [facility] [address] [place] [address] Celso Santillan M.D., Seasonal Warehouse Associate SPEC: [id number] PATIENT: RAMÓN SCHOFIELD [id number] ( Continued) Procedure Result ANTIMICROBIAL SUSCEPTIBILITY Final (continued) Clindamycin S<=0.25 Erythromycin S =0.5 Gentamicin S<=0.5 Levofloxacin S =0.25 Linezolid S =2 Moxifloxacin S<=0.25 Oxacillin S =1 Penicillin R>=0.5 Quinupristin/Dalfopristin S<=0.25 Rifampin S<=0.5 Tetracycline S<=1 Trimethoprim/Sulfa S<=10 Vancomycin S =1 GRAM STAIN Final Final report GRAM STAIN RES 1 Final Comment Many white blood cells. GRAM STAIN RES 2 Final Comment Gram positive cocci in clusters Rare seen Performed at: - [facility] [address], [place], [place] [id number] Wet Wash Assembler: GEOVANY Saenz MD, Phone: [phone] Objective: Assessment: 1. Severe cellulitis with abscess of left lower leg, status post irrigation and debridement excisional skin and subcutaneous tissue with wound VAC application on 02/07/2018. Cult MSSA s/ p repeat I and D 02/09, no bone involvement 2. Fever.resolved 3. Leukocytosis.resolved 4. Diabetes type 2, poorly controlled. 5. Schizophrenia. 6. Hypertension. Plan: Plan of Care Can dc zosyn and zyvox start unasyn when ready for dc home transition to po augmentin 875mg po bid for 2 weeks wound vac care per ortho f/u with us in 2 weeks D/W ADONIS ALVARADO MD Feb 12, 2018 08:28
[2018-02-12] MEDS: LURASIDONE 40 MG TABLET. PO SCH (08:58)
[2018-02-12] MEDS: hydroCHLOROthiazide 25 MG TABLET PO SCH (08:58)
[2018-02-12] MEDS: LISINOPRIL 20 MG TABLET PO SCH (08:59)
[2018-02-12] MEDS: LINEZOLID 600 MG TABLET PO SCH (09:00)
[2018-02-12] MEDS: LACTOBACILLUS RHAMNOSUS GG 1 CAPSULE. PO SCH ×2 (09:00→21:19)
[2018-02-12] MEDS: metFORMIN 500 MG TABLET PO SCH (09:01)
[2018-02-12] MEDS: NYSTATIN TOPICAL POWDER 15GM BOTTLE. TP SCH ×2 (09:01→21:19)
[2018-02-12 11:00] VITALS: BP 133/87
[2018-02-12] MEDS: ENOXAPARIN 40 MG/0.4 ML SYRINGE. SQ SCH (12:29)
[2018-02-12] MEDS: AMPICILLIN/SULBACTAM 3 GM in IV NORMAL SALINE 100ML 100 ML IV SCH ×2 (12:31→18:00)
[2018-02-12 15:00] VITALS: BP 144/98
--- NOTE | 2018-02-12 17:35 | PDOC ---
PROGRESS NOTES Subjective Slow improvement, she is learning how to give self insulin shots, still on IV abx and wound vac Objective Afebrile General: A&O with baseline cognitive deficits Heart: RRR Lungs: CTA Abd: obese, no bruising from Lovenox, non tender umbilical hernia present Ext: improved redness of leg, dressing dry, lymphedema still present Vital Signs Vital Signs Date Time Temp Pulse Resp B/P (MAP) Pulse Ox O2 Delivery O2 Flow Rate FiO2 02/12/18 15:00 98.2 100 18 144/98 (113) 92 Room Air 98.2 02/09/18 15:27 2.0 I & O Intake and Output 02/12/18 07:00 Intake Total 440 ml Output Total 1 ml Balance 439 ml Intake Oral 440 ml Stool Total 1 ml # Voids 11 # Bowel Movements 3 Assessment and Plan 1. Abscess/cellulitis of the left lower extremity with sepsis, s/p bedside and OR I&D with second OR wound repair, culture obtained (gram + cocci in clusters - MSSA), wound vac in place, ID seeing, wound care following, currently on Unasyn, should be ready for discharge tomorrow 2. Uncontrolled type 2 diabetes - added SSI without improvement so will continue to increase routine basal/bolus insulin, resumed metformin, A1c > 14. She has now given herself an injection of insulin 3. Hypertension - controlled, continue home meds. 4. Schizophrenia, controlled, continue home meds. 5. severe protein malnutrition present on admission - protein supplements, nutrition consult Nadiya WINSTON MD Feb 12, 2018 17:35
[2018-02-12 19:15] VITALS: BP 150/98
[2018-02-12] MEDS: INSULIN GLARGINE 300 UNITS/3 ML INSULN.PEN. SQ SCH (21:41)
[2018-02-12 23:04] VITALS: BP 139/86
[2018-02-13] MEDS: AMPICILLIN/SULBACTAM 3 GM in IV NORMAL SALINE 100ML 100 ML IV SCH ×5 (00:04→23:47)
[2018-02-13] MEDS: HYDROcodone/APAP 5/325MG 1 TAB TABLET PO PRN ×2 (00:33→14:50)
[2018-02-13 02:56] VITALS: BP 142/95
[2018-02-13 07:00] VITALS: BP 153/110
--- NOTE | 2018-02-13 08:34 | PDOC ---
ORTHO PROGRESS NOTES Subjective She is still having some left lower extremity pain, but it is slowly better. She had a wound VAC change as well. Vitals Vital Signs Date Time Temp Pulse Resp B/P (MAP) Pulse Ox O2 Delivery O2 Flow Rate FiO2 02/13/18 07:00 98.1 94 16 153/110 (124) 92 Room Air 98.1 Labs Laboratory Tests Test 02/11/18 11:36 02/11/18 16:37 02/11/18 20:18 02/12/18 07:30 Glucose (Fingerstick) 273 mg/dL (70-99) 214 mg/dL (70-99) 142 mg/dL (70-99) 123 mg/dL (70-99) Test 02/12/18 12:02 02/12/18 17:12 02/12/18 20:56 02/13/18 00:31 Glucose (Fingerstick) 154 mg/dL (70-99) 204 mg/dL (70-99) 124 mg/dL (70-99) 142 mg/dL (70-99) Laboratory Tests Test 02/12/18 12:02 02/12/18 17:12 02/12/18 20:56 02/13/18 00:31 Glucose (Fingerstick) 154 mg/dL (70-99) 204 mg/dL (70-99) 124 mg/dL (70-99) 142 mg/dL (70-99) Notes Awake and alert in bed. Examination of her left lower extremity reveals the cellulitis and edema are little bit better. Wound VAC is in place with a good seal. Her incisions are healing appropriately. Assessment and Plan I do not anticipate any further need for operative intervention. I recommend that she maintain the wound VAC for wound healing at home. From my standpoint, she discharged when medically stable. ROYCE DE LA FUENTE II, MD Feb 13, 2018 08:34
[2018-02-13] MEDS: LURASIDONE 40 MG TABLET. PO SCH (08:48)
[2018-02-13] MEDS: metFORMIN 500 MG TABLET PO SCH (08:48)
[2018-02-13] MEDS: LISINOPRIL 20 MG TABLET PO SCH (08:49)
[2018-02-13] MEDS: LACTOBACILLUS RHAMNOSUS GG 1 CAPSULE. PO SCH ×2 (08:50→21:35)
[2018-02-13] MEDS: INSULIN LISPRO 300 UNITS/3 ML INSULN.PEN. SQ SCH ×6 (08:57→17:14)
--- NOTE | 2018-02-13 09:14 | PDOC3 ---
Discharge Summary IPC Final Diagnosis Problems Medical Problems: (1) Sepsis affecting skin Status: Acute Brief Hospital Course Ms. Salazar is a 52 old [sex] who presented with [ ] Scheduled Ascorbic Acid (Ascorbic Acid), 250 MG PO DAILY, (Reported) Lisinopril/Hydrochlorothiazide (Lisinopril-Hctz 20-25 Mg Tab), 1 TAB PO DAILY, ( Reported) Lurasidone Hcl (Latuda), 20 MG PO DAILY, (Reported) Lurasidone Hcl (Latuda), 120 MG PO DAILY, (Reported) Metformin Hcl (Metformin Hcl), 500 MG PO BIDWMEALS, (Reported) Scheduled PRN Iodine (Kelp), 150 MCG PO PRN 1X PRN for CONSTIPATION, (Reported) Nadiya WINSTON MD Feb 13, 2018 09:14
--- NOTE | 2018-02-13 09:34 | PDOC ---
Infectious Disease Note Subjective: Subjective Pt had nausea and vomiting this am after she took her asa this am threw up all her meds from this am awaiting wound vac for home discharge pain at postop site is under control has wound vac in place no f/cn/v/d/abdo pain ROS: ROS Negative except for above. Vital Signs: Vital Signs Vital Signs Date Time Temp Pulse Resp B/P (MAP) Pulse Ox O2 Delivery O2 Flow Rate FiO2 02/13/18 08:49 94 153/110 02/13/18 07:00 98.1 16 92 Room Air 98.1 Physical Exam: PHYSICAL EXAM GEN AxOx3 male in nad HEENT: Pupils equally round. Oral mucosa is pink and moist. Poor dentition. She has few pustules below her nose. Facial hair noted. NECK: Supple. LUNGS: Clear to auscultation. HEART: S1, S2. ABDOMEN: Obese, bowel sounds active, soft, nontender. She has some yeast under the pannus area. EXTREMITIES: She has multiple small scabs right lower leg. Her left lower leg is edematous, warm and erythematous with wound VAC in place. She also has two wounds that are packed with gauze. Distal pulses palpable. SKIN: Warm without rash. Few skin tags noted. NEUROLOGIC: Alert, responds appropriately and follows simple commands. Medications: Inpatient Meds: Current Medications Medications (Trade) Dose Ordered Sig/Jacobo Start Time Stop Time Status Last Admin Dose Admin Acetaminophen/ Hydrocodone Bitart (Lortab 5/325) 2 tab PRN QID PRN 02/07/18 11:30 02/08/18 16:24 2 TAB Alprazolam (Xanax) 0.5 mg PRN Q8HRS PRN 02/09/18 20:30 02/10/18 21:37 0.5 MG Ampicillin Sodium/ Sulbactam Sodium 3 gm/Sodium Chloride 100 ml @ 200 mls/hr Q6HRS 02/12/18 12:00 02/13/18 06:03 200 MLS/HR Bupivacaine HCl (Sensorcaine Mpf 0.5%) 30 ml STK-MED ONCE 02/07/18 13:39 02/07/18 14:39 DC Dexamethasone Sodium Phosphate (Decadron) 20 mg STK-MED ONCE 02/09/18 11:17 02/09/18 11:18 DC Dextrose (Dextrose 50%-Water Syringe) 12.5 gm PRN Q15MIN PRN 02/07/18 09:30 02/10/18 22:00 12.5 GM Enoxaparin Sodium (Lovenox 40mg Syringe) 40 mg Q24H 02/10/18 12:00 02/12/18 12:29 40 MG Enoxaparin Sodium (Lovenox Per Pharmacy Prophylaxis Dosing) 1 each PRN DAILY PRN 02/10/18 11:00 Famotidine (Pepcid Vial) 20 mg STK-MED ONCE 02/09/18 11:17 02/09/18 11:18 DC Fentanyl Citrate (Fentanyl 2ml Vial) 100 mcg STK-MED ONCE 02/09/18 11:17 02/09/18 11:18 DC Hydrochlorothiazide (Hydrodiuril) 25 mg DAILY 02/07/18 10:00 02/12/18 08:58 25 MG Hydromorphone HCl (Dilaudid) 0.5 mg PRN Q10MIN PRN 02/07/18 12:30 02/07/18 19:00 DC Insulin Glargine (Lantus) 45 units QHS 02/10/18 21:00 02/12/18 21:41 45 UNITS Insulin Human Lispro (HumaLOG VIAL) 2 unit 1X ONCE 02/09/18 12:30 02/09/18 12:31 DC 02/09/18 12:27 2 UNIT Insulin Human Lispro (HumaLOG) 25 units TIDWMEALS 02/10/18 12:00 02/13/18 08:58 25 UNITS Lactobacillus Rhamnosus (Culturelle) 1 cap BID 02/08/18 21:00 02/13/18 08:50 1 CAP Lidocaine HCl 20 ml STK-MED ONCE 02/07/18 13:38 02/07/18 14:39 DC Lidocaine HCl (Xylocaine-Mpf 1% 2ml Vial) 2 ml 1X PRN PRN 02/07/18 12:30 02/07/18 19:00 DC Lidocaine HCl (Xylocaine-Mpf 2% Vial) 10 ml 1X ONCE 02/07/18 09:30 02/07/18 09:31 Cancel Linezolid (Zyvox) 600 mg BID 02/10/18 21:00 02/12/18 09:07 DC 02/12/18 09:00 600 MG Lisinopril (Prinivil) 20 mg DAILY 02/07/18 10:00 02/13/18 08:49 20 MG Lurasidone HCl (Latuda) 140 mg DAILYWBKFT 02/08/18 08:00 02/13/18 08:48 140 MG Meropenem 500 mg/ Sodium Chloride 50 ml @ 100 mls/hr Q8HRS 02/07/18 06:00 02/08/18 14:21 DC 02/08/18 06:05 100 MLS/HR Metformin HCl (Glucophage) 500 mg 1000 02/08/18 17:00 02/13/18 08:48 500 MG Midazolam HCl (Versed) 2 mg STK-MED ONCE 02/09/18 11:18 02/09/18 11:19 DC Morphine Sulfate (Morphine Sulfate) 1 mg PRN Q10MIN PRN 02/07/18 12:30 02/07/18 19:00 DC Non-Formulary Medication (Lurasidone Hcl (Latuda)) 120 mg DAILY 02/08/18 09:00 UNV Nystatin (Nystop) 1 padmini BID 02/07/18 21:30 02/12/18 21:19 1 PADMINI Ondansetron HCl (Zofran) 4 mg STK-MED ONCE 02/09/18 11:17 02/09/18 11:18 DC Piperacillin Sod/ Tazobactam Sod 3.375 gm/Sodium Chloride 50 ml @ 100 mls/hr Q6HRS 02/08/18 18:00 02/12/18 09:07 DC 02/12/18 05:54 100 MLS/HR Potassium Chloride (Klor-Con) 20 meq 1X ONCE 02/09/18 13:45 02/09/18 13:46 DC 02/09/18 13:41 20 MEQ Prochlorperazine Edisylate (Compazine) 5 mg PACU PRN PRN 02/07/18 12:30 02/07/18 19:00 DC Propofol 20 ml @ As Directed STK-MED ONCE 02/09/18 11:17 02/09/18 11:18 DC Ringer's Solution 1,000 ml @ 30 mls/hr Q24H 02/07/18 12:27 10/7/18 00:26 DC Sevoflurane (Ultane) 15 ml STK-MED ONCE 02/09/18 12:23 02/09/18 12:24 DC Sodium Chloride 1,000 ml @ 150 mls/hr Q6H40M 02/07/18 02:00 02/08/18 01:59 DC 02/07/18 18:39 150 MLS/HR Vancomycin HCl (Vanco Per Pharmacy) 1 each PRN DAILY PRN 02/07/18 01:00 02/10/18 10:41 DC 02/09/18 17:18 1 EACH Vancomycin HCl (Vancomycin Trough Level) 1 each 1X ONCE 02/09/18 15:30 02/09/18 15:31 DC Vancomycin HCl 1.75 gm/Sodium Chloride 500 ml @ 250 mls/hr Q12H 02/08/18 16:00 02/10/18 10:41 DC 02/10/18 04:14 250 MLS/HR Vancomycin HCl 2 gm/Sodium Chloride 500 ml @ 250 mls/hr 1X ONCE 02/07/18 01:00 02/07/18 02:59 DC 02/07/18 01:00 250 MLS/HR Labs: Lab Laboratory Tests Test 02/12/18 12:02 02/12/18 17:12 02/12/18 20:56 02/13/18 00:31 Glucose (Fingerstick) 154 mg/dL (70-99) 204 mg/dL (70-99) 124 mg/dL (70-99) 142 mg/dL (70-99) Test 02/13/18 07:44 Glucose (Fingerstick) 187 mg/dL (70-99) Micro RUN DATE: 02/11/18 PAGE 1 RUN TIME: 2755 [facility] [address] [place] [address] Celso Santillan M.D., [place] PATIENT: RAMÓN SCHOFIELD ACCT: [id number] LOC: [address] [place] [address] U : [id number] AGE/SX: 52/F ROOM: 404 REG : 02/07/[address]: TREE VALLES MD : 1965 BED: 1 DIS : STATUS: ADM IN TLOC: SPEC #: [id number] FABIAN: 02/07/18 STATUS: RES REQ #: [id number] RECD: 02/07/[address]: TREE VALLES MD SOURCE: LEG ENTR: 02/08/[address] [facility] [address]: ROYCE DE LA FUENTE II, MD SPDC: LEFT ORDERED: ANAER/AEROB/GS Procedure Result ANAEROBIC-AEROBIC CULTURE Preliminary Preliminary report ANAEROBIC RES 1 Preliminary Comment No anaerobes recovered in 48 hours. AEROBIC CULT Final Final report AEROBIC RES 1 Final Staphylococcus aureus 4+ Based on susceptibility to oxacillin this isolate would be susceptible to: *Penicillinase-stable penicillins, such as: Cloxacillin, Dicloxacillin, Nafcillin *Beta-lactam combination agents, such as: Amoxicillin-clavulanic acid, Ampicillin-sulbactam, Piperacillin-tazobactam *Oral cephems, such as: Cefaclor, Cefdinir, Cefpodoxime, Cefprozil, Cefuroxime, Cephalexin, Loracarbef *Parenteral cephems, such as: Cefazolin, Cefepime, Cefotaxime, Cefotetan, Ceftaroline, Ceftizoxime, Ceftriaxone, Cefuroxime *Carbapenems, such as: Doripenem, Ertapenem, Imipenem, Meropenem ANTIMICROBIAL SUSCEPTIBILITY Final Comment S = Susceptible; I = Intermediate; R = Resistant P = Positive; N = Negative MICS are expressed in micrograms per mL Antibiotic RSLT#1 RSLT#2 RSLT#3 RSLT#4 Ciprofloxacin S<=0.5 CONTINUED ON NEXT PAGE RUN DATE: 02/11/18 PAGE 2 RUN TIME: 1715 [facility] [address] [place] [address] Celso Santillan M.D., [place] SPEC: [id number] PATIENT: RAMÓN SCHOFIELD [id number] ( Continued) Procedure Result ANTIMICROBIAL SUSCEPTIBILITY Final (continued) Clindamycin S<=0.25 Erythromycin S<=0.25 Gentamicin S<=0.5 Levofloxacin S =0.25 Linezolid S =2 Moxifloxacin S<=0.25 Oxacillin S<=0.25 Penicillin R>=0.5 Quinupristin/Dalfopristin S<=0.25 Rifampin S<=0.5 Tetracycline S<=1 Trimethoprim/Sulfa S<=10 Vancomycin S<=0.5 GRAM STAIN Final Final report GRAM STAIN RES 1 Final Comment No white blood cells seen. GRAM STAIN RES 2 Final Comment Gram positive cocci in clusters Few seen Performed at: DA - [facility] [address], [place], [place] [id number] [employer] Worker: GEOVANY Saenz MD, Phone: [phone] RUN DATE: 02/11/18 PAGE 1 RUN TIME: 1715 [facility] [address] [place] [address] Celso Santillan M.D., [place] PATIENT: RAMÓN SCHOFIELD Daija ACCT: [id number] LOC: [address] [place] [address] U : [id number] AGE/SX: 52/F ROOM: 404 REG : 02/07/[address]: TREE VALLES MD : 1965 BED: 1 DIS : STATUS: ADM IN TLOC: SPEC #: [id number] FABIAN: 02/07/18 STATUS: RES REQ #: [id number] RECD: 02/07/[address]: TREE VALLES MD SOURCE: LEG ENTR: 02/08/[address] [facility] [address]: ROYCE DE LA FUENTE II, MD SPDESC: LEFT ORDERED: ANAER/AEROB/GS Procedure Result ANAEROBIC-AEROBIC CULTURE Preliminary Preliminary report ANAEROBIC RES 1 Preliminary Comment No anaerobes recovered in 48 hours. AEROBIC CULT Final Final report AEROBIC RES 1 Final Staphylococcus aureus 2+ Based on susceptibility to oxacillin this isolate would be susceptible to: *Penicillinase-stable penicillins, such as: Cloxacillin, Dicloxacillin, Nafcillin *Beta-lactam combination agents, such as: Amoxicillin-clavulanic acid, Ampicillin-sulbactam, Piperacillin-tazobactam *Oral cephems, such as: Cefaclor, Cefdinir, Cefpodoxime, Cefprozil, Cefuroxime, Cephalexin, Loracarbef *Parenteral cephems, such as: Cefazolin, Cefepime, Cefotaxime, Cefotetan, Ceftaroline, Ceftizoxime, Ceftriaxone, Cefuroxime *Carbapenems, such as: Doripenem, Ertapenem, Imipenem, Meropenem ANTIMICROBIAL SUSCEPTIBILITY Final Comment S = Susceptible; I = Intermediate; R = Resistant P = Positive; N = Negative MICS are expressed in micrograms per mL Antibiotic RSLT#1 RSLT#2 RSLT#3 RSLT#4 Ciprofloxacin S<=0.5 CONTINUED ON NEXT PAGE RUN DATE: 02/11/18 PAGE 2 RUN TIME: 1715 [facility] [address] [place] [address] Celso Santillan M.D., [place] SPEC: [id number] PATIENT: RAMÓN SCHOFIELD [id number] ( Continued) Procedure Result ANTIMICROBIAL SUSCEPTIBILITY Final (continued) Clindamycin S<=0.25 Erythromycin S =0.5 Gentamicin S<=0.5 Levofloxacin S =0.25 Linezolid S =2 Moxifloxacin S<=0.25 Oxacillin S =1 Penicillin R>=0.5 Quinupristin/Dalfopristin S<=0.25 Rifampin S<=0.5 Tetracycline S<=1 Trimethoprim/Sulfa S<=10 Vancomycin S =1 GRAM STAIN Final Final report GRAM STAIN RES 1 Final Comment Many white blood cells. GRAM STAIN RES 2 Final Comment Gram positive cocci in clusters Rare seen Performed at: DA - [facility] [id number], [place], [place] [id number] [employer] Worker: GEOVANY Saenz MD, Phone: [phone] Objective: Assessment: 1. Severe cellulitis with abscess of left lower leg, status post irrigation and debridement excisional skin and subcutaneous tissue with wound VAC application on 02/07/2018. Cult MSSA s/ p repeat I and D 02/09, no bone involvement 2. Fever.resolved 3. Leukocytosis.resolved 4. Diabetes type 2, poorly controlled. 5. Schizophrenia. 6. Hypertension. 7.Nausea and vomiting Plan: Plan of Care DC Unasyn start ceftriaxone when ready for dc home transition to po keflex 500mg po qid for 2 weeks wound vac care per ortho f/u with us in 2 weeks D/W RN ADONIS DE LEON MD Feb 13, 2018 09:34
[2018-02-13 11:00] VITALS: BP 157/98
[2018-02-13] MEDS: NYSTATIN TOPICAL POWDER 15GM BOTTLE. TP SCH ×2 (12:29→21:45)
[2018-02-13] MEDS: hydroCHLOROthiazide 25 MG TABLET PO SCH (12:29)
[2018-02-13] MEDS: ENOXAPARIN 40 MG/0.4 ML SYRINGE. SQ SCH (12:29)
[2018-02-13] MEDS ORDERED: LACT1CAP19 PO (13:30)
[2018-02-13] MEDS ORDERED: HYDR25TA9 PO (13:30)
[2018-02-13] MEDS ORDERED: NYST60PO TP (13:30)
--- NOTE | 2018-02-13 14:15 | DISCH ---
DISCHARGE DISCHARGE INFORMATION: FINAL DIAGNOSIS Problems Medical Problems: (1) Sepsis affecting skin Status: Acute CONDITION ON DISCHARGE: Stable CODE STATUS: Code Status: Full POST DISCHARGE ORDERS: WEIGHT BEARING STATUS: As tolerated DIET AFTER DISCHARGE: ADA CHECKS AFTER DISCHARGE: CHECKS AFTER DISCHARGE: Check blood sugar, ac/hs FOLLOW-UP: PHYSICIAN FOLLOW-UP: Dr. Floyd 1-2 weeks ADDITIONAL FOLLOW-UP: intermediate for wound care, teach pt about diabetic diet & insulin shot DISCHARGE MEDICATIONS: Home Meds Reported Medications Ascorbic Acid (ASCORBIC ACID) 250 Mg Tablet, 250 MG PO DAILY, TAB 02/07/18 Iodine (KELP) 150 Mcg Tablet, 150 MCG PO PRN 1X PRN for CONSTIPATION, TAB 02/07/18 Lurasidone Hcl (LATUDA) 120 Mg Tablet, 120 MG PO DAILY, TAB 02/07/18 Lurasidone Hcl (LATUDA) 20 Mg Tablet, 20 MG PO DAILY, TAB 02/07/18 Lisinopril/Hydrochlorothiazide (LISINOPRIL-HCTZ 20-25 MG TAB) 1 Each Tablet, 1 TAB PO DAILY, #30 TAB 5 Refills 02/07/18 Metformin Hcl (METFORMIN HCL) 500 Mg Tablet, 500 MG PO BIDWMEALS for ANTI- DIABETIC, TAB 0 Refills 02/07/18 Nadiya WINSTON MD Feb 13, 2018 14:15
[2018-02-13 15:00] VITALS: BP 157/96
--- NOTE | 2018-02-13 17:05 | PDOC ---
PROGRESS NOTES Subjective Waiting on wound vac, otherwise stable, glucose controlled and she is learning how to use insulin Objective Afebrile General: anxious about insulin, some nausea this am Heart: RRR Lungs: CTA Abd: obese, soft, non tender periumbilical hernia Ext: wound vac on left leg, edema still present, erythema from cellulitis nearly resolved Vital Signs Vital Signs Date Time Temp Pulse Resp B/P (MAP) Pulse Ox O2 Delivery O2 Flow Rate FiO2 02/13/18 16:00 16 Room Air 02/13/18 15:00 98.3 107 157/96 (116) 92 98.3 02/09/18 15:27 2.0 I & O Intake and Output 02/13/18 07:00 Intake Total 840 ml Balance 840 ml Intake Oral 840 ml # Voids 13 # Bowel Movements 2 Assessment and Plan 1. Abscess/cellulitis of the left lower extremity with sepsis, s/p bedside and OR I&D with second OR wound repair, culture obtained (gram + cocci in clusters - MSSA), wound vac in place, ID seeing, wound care following, currently on Unasyn, ready for discharge when wound vac approved 2. Uncontrolled type 2 diabetes - added SSI without improvement so will continue to increase routine basal/bolus insulin, resumed metformin, A1c > 14. She has now given herself an injection of insulin 3. Hypertension - controlled, continue home meds. 4. Schizophrenia, controlled, continue home meds. 5. severe protein malnutrition present on admission - protein supplements, nutrition consult Nadiya WINSTON MD Feb 13, 2018 17:05
[2018-02-13 19:00] VITALS: BP 151/101
[2018-02-13] MEDS: INSULIN GLARGINE 300 UNITS/3 ML INSULN.PEN. SQ SCH (21:37)
[2018-02-13 23:00] VITALS: BP 148/55
[2018-02-14 03:00] VITALS: BP 153/96
[2018-02-14] MEDS: AMPICILLIN/SULBACTAM 3 GM in IV NORMAL SALINE 100ML 100 ML IV SCH ×4 (06:04→23:40)
[2018-02-14 07:00] VITALS: BP 186/116
[2018-02-14] MEDS: LURASIDONE 40 MG TABLET. PO SCH (08:16)
[2018-02-14] MEDS: hydroCHLOROthiazide 25 MG TABLET PO SCH (08:17)
[2018-02-14] MEDS: LACTOBACILLUS RHAMNOSUS GG 1 CAPSULE. PO SCH ×2 (08:17→20:08)
[2018-02-14] MEDS: LISINOPRIL 20 MG TABLET PO SCH (08:18)
[2018-02-14] MEDS: metFORMIN 500 MG TABLET PO SCH (08:18)
[2018-02-14] MEDS: NYSTATIN TOPICAL POWDER 15GM BOTTLE. TP SCH ×2 (08:19→20:15)
[2018-02-14] MEDS: INSULIN LISPRO 300 UNITS/3 ML INSULN.PEN. SQ SCH ×6 (08:37→17:00)
[2018-02-14 11:00] VITALS: BP 142/93
[2018-02-14] MEDS: ENOXAPARIN 40 MG/0.4 ML SYRINGE. SQ SCH (12:22)
--- NOTE | 2018-02-14 13:30 | PDOC ---
PROGRESS NOTES Subjective Subjective Patient reports some pain in left leg but not as bad as before. States she is trying to learn how to give herself the insulin injections. Objective Objective Vital Signs Date Time Temp Pulse Resp B/P (MAP) Pulse Ox O2 Delivery O2 Flow Rate FiO2 02/14/18 11:00 98.3 100 16 142/93 (109) 96 Room Air 98.3 02/09/18 15:27 2.0 Intake and Output 02/14/18 07:00 Intake Total 1750 ml Balance 1750 ml Intake Oral 1750 ml # Voids 17 Physical Exam Abdomen: Normal bowel sounds, Soft, No tenderness Heart: Regular rate Extremities: Other (mild diffuse erythema L LE. Wound vac in place) General: Alert, Oriented X3, No acute distress Lungs: Clear to auscultation Assessment Assessment Problems Medical Problems: (1) Sepsis affecting skin Status: Acute Plan Plan of Care 1. Cellulitis with sepsis - improved. Continue abx per ID. Apparently waiting on insurance approval for wound vac at discharge. 2. DM2 - control improving with insulins. Will increase Levemir tonight. Nursing continuing to help patient learn how to administer her own insulins but report she is still having trouble with this. 3. HTN - BP staying mildly elevated, will increase Lisinopril in AM. 4. schizophrenia - stable, continue home medication. Comment Review of Relevant I have reviewed the following items genesis (where applicable) has been applied. Labs Laboratory Tests Test 02/12/18 17:12 02/12/18 20:56 02/13/18 00:31 02/13/18 07:44 Glucose (Fingerstick) 204 mg/dL (70-99) 124 mg/dL (70-99) 142 mg/dL (70-99) 187 mg/dL (70-99) Test 02/13/18 12:02 02/13/18 16:32 02/13/18 20:24 02/14/18 07:44 Glucose (Fingerstick) 140 mg/dL (70-99) 102 mg/dL (70-99) 193 mg/dL (70-99) 217 mg/dL (70-99) Test 02/14/18 11:20 Glucose (Fingerstick) 144 mg/dL (70-99) Laboratory Tests Test 02/13/18 16:32 02/13/18 20:24 02/14/18 07:44 02/14/18 11:20 Glucose (Fingerstick) 102 mg/dL (70-99) 193 mg/dL (70-99) 217 mg/dL (70-99) 144 mg/dL (70-99) Microbiology 02/07/18 Anaerobic/Aerobic Culture - Final, Complete 02/07/18 Anaerobic Culture Result 1 (CHRISTI) - Final, Complete 02/07/18 Aerobic Culture - Final, Complete 02/07/18 Aerobic Culture Result 1 (CHRISTI) - Final, Complete 02/07/18 Antimicrobic Susceptibility - Final, Complete 02/07/18 Gram Stain - Final, Complete 02/07/18 Gram Stain Result 1 (CHRISTI) - Final, Complete 02/07/18 Gram Stain Result 2 (CHRISTI) - Final, Complete Medications Current Medications Vancomycin HCl (Vanco Per Pharmacy) 1 each PRN DAILY PRN MC SEE COMMENTS Last administered on 02/09/18at 17:18; Start 02/07/18 at 01:00; Stop 02/10/18 at 10:41 ; Status DC Sodium Chloride 1,000 ml @ 1,000 mls/hr 1X ONCE IV Last administered on at 01:00; Start 02/07/18 at 01:00; Stop 02/07/18 at 01:59; Status DC Meropenem 500 mg/ Sodium Chloride 50 ml @ 100 mls/hr Q8HRS IV Last administered on 02/08/18at 06:05; Start 02/07/18 at 06:00; Stop 02/08/18 at 14:21 ; Status DC Vancomycin HCl 2 gm/Sodium Chloride 500 ml @ 250 mls/hr 1X ONCE IV Last administered on 02/07/18at 01:00; Start 02/07/18 at 01:00; Stop 02/07/18 at 02:59 ; Status DC Sodium Chloride 1,000 ml @ 150 mls/hr Q6H40M IV Last administered on at 18:39; Start 02/07/18 at 02:00; Stop 02/08/18 at 01:59; Status DC Vancomycin HCl 1.75 gm/Sodium Chloride 500 ml @ 250 mls/hr Q8H IV Last administered on 02/07/18at 21:09; Start 02/07/18 at 09:00; Stop 02/08/18 at 05:39 ; Status DC Vancomycin HCl (Vancomycin Trough Level) 1 each 1X ONCE MC Last administered on 02/08/18 03:30; Start 02/08/18 at 03:30; Stop 02/08/18 at 03:31; Status DC Lidocaine HCl (Xylocaine-Mpf 2% Vial) 10 ml 1X ONCE INJ ; Start 02/07/18 at 09: 30; Stop 02/07/18 at 09:31; Status Cancel Insulin Human Lispro (HumaLOG) 0-7 UNITS TIDWMEALS SQ Last administered on at 08:37; Start 02/07/18 at 12:00 Dextrose (Dextrose 50%-Water Syringe) 12.5 gm PRN Q15MIN PRN IV SEE COMMENTS Last administered on 02/10/18at 22:00; Start 02/07/18 at 09:30 Lidocaine HCl 20 ml 1X ONCE IJ ; Start 02/07/18 at 09:30; Stop 02/07/18 at 09: 31; Status DC Lisinopril (Prinivil) 20 mg DAILY PO Last administered on 02/14/18at 08:18; Start 02/07/18 at 10:00 Lurasidone HCl (Latuda) 140 mg DAILYWBKFT PO Last administered on 02/14/18 08 :16; Start 02/08/18 at 08:00 Non-Formulary Medication (Lurasidone Hcl (Latuda)) 120 mg DAILY PO ; Start 02/08 at 09:00; Status UNV Hydrochlorothiazide (Hydrodiuril) 25 mg DAILY PO Last administered on at 08:17; Start 02/07/18 at 10:00 Fentanyl Citrate (Fentanyl 2ml Vial) 25 mcg PRN Q6HRS PRN IV PAIN Last administered on 02/08/18 11:33; Start 02/07/18 at 11:30 Acetaminophen/ Hydrocodone Bitart (Lortab 5/325) 1 tab PRN QID PRN PO MILD TO MODERATE PAIN Last administered on 02/13/18at 14:50; Start 02/07/18 at 11:30 Acetaminophen/ Hydrocodone Bitart (Lortab 5/325) 2 tab PRN QID PRN PO SEVERE PAIN Last administered on 02/08/18at 16:24; Start 02/07/18 at 11:30 Ondansetron HCl (Zofran) 4 mg PRN Q6HRS PRN IV NAUSEA/VOMITING; Start 02/07/18 at 12:30; Stop 02/07/18 at 19:00; Status DC Fentanyl Citrate (Fentanyl 2ml Vial) 25 mcg PRN Q5MIN PRN IV MILD PAIN; Start 02/07/18 at 12:30; Stop 02/07/18 at 19:00; Status DC Fentanyl Citrate (Fentanyl 2ml Vial) 50 mcg PRN Q5MIN PRN IV MODERATE TO SEVERE PAIN; Start 02/07/18 at 12:30; Stop 02/07/18 at 19:00; Status DC Morphine Sulfate (Morphine Sulfate) 1 mg PRN Q10MIN PRN IV SEVERE PAIN; Start 02/07/18 at 12:30; Stop 02/07/18 at 19:00; Status DC Ringer's Solution 1,000 ml @ 30 mls/hr Q24H IV ; Start 02/07/18 at 12:27; Stop 02/08/18 at 00:26; Status DC Lidocaine HCl (Xylocaine-Mpf 1% 2ml Vial) 2 ml 1X PRN PRN ID IV START; Start 02/07/18 at 12:30; Stop 02/07/18 at 19:00; Status DC Hydromorphone HCl (Dilaudid) 0.5 mg PRN Q10MIN PRN IV SEV PAIN, Second choice; Start 02/07/18 at 12:30; Stop 02/07/18 at 19:00; Status DC Prochlorperazine Edisylate (Compazine) 5 mg PACU PRN PRN IV NAUSEA, MRX1; Start 02/07/18 at 12:30; Stop 02/07/18 at 19:00; Status DC Dexamethasone Sodium Phosphate (Decadron) 20 mg STK-MED ONCE .ROUTE ; Start 02/07/18 at 12:35; Stop 02/07/18 at 12:36; Status DC Ondansetron HCl (Zofran) 4 mg STK-MED ONCE .ROUTE ; Start 02/07/18 at 12:35; Stop 02/07/18 at 12:36; Status DC Propofol 20 ml @ As Directed STK-MED ONCE IV ; Start 02/07/18 at 12:35; Stop at 12:36; Status DC Fentanyl Citrate (Fentanyl 2ml Vial) 100 mcg STK-MED ONCE .ROUTE ; Start at 12:36; Stop 02/07/18 at 12:37; Status DC Lidocaine HCl 20 ml STK-MED ONCE .ROUTE ; Start 02/07/18 at 13:38; Stop at 14:39; Status DC Bupivacaine HCl (Sensorcaine Mpf 0.5%) 30 ml STK-MED ONCE .ROUTE ; Start at 13:39; Stop 02/07/18 at 14:39; Status DC Sevoflurane (Ultane) 30 ml STK-MED ONCE IH ; Start 02/07/18 at 15:25; Stop 02/07 at 15:26; Status DC Insulin Human Lispro (HumaLOG VIAL) 4 unit 1X ONCE SQ Last administered on 02/07/18at 16:05; Start 02/07/18 at 16:00; Stop 02/07/18 at 16:12; Status DC Insulin Human Lispro (HumaLOG) 4 units 1X SQ ; Start 02/07/18 at 16:15; Stop at 11:12; Status DC Insulin Human Lispro (HumaLOG) 12 units 1X ONCE SQ Last administered on at 22:57; Start 02/07/18 at 21:30; Stop 02/07/18 at 21:31; Status DC Nystatin (Nystop) 1 padmini BID TP Last administered on 02/14/18at 08:19; Start at 21:30 Vancomycin HCl 1.75 gm/Sodium Chloride 500 ml @ 250 mls/hr Q12H IV Last administered on 02/10/18at 04:14; Start 02/08/18 at 16:00; Stop 02/10/18 at 10:41 ; Status DC Vancomycin HCl (Vancomycin Trough Level) 1 each 1X ONCE MC ; Start 02/09/18 at 15:30; Stop 02/09/18 at 15:31; Status DC Insulin Glargine (Lantus) 20 units QHS SQ Last administered on 02/08/18at 21:00 ; Start 02/08/18 at 21:00; Stop 02/09/18 at 09:08; Status DC Insulin Human Lispro (HumaLOG) 10 units TIDWMEALS SQ Last administered on at 08:12; Start 02/08/18 at 12:00; Stop 02/09/18 at 09:08; Status DC Metformin HCl (Glucophage) 500 mg 1000 PO Last administered on 02/14/18at 08:18 ; Start 02/08/18 at 17:00 Lactobacillus Rhamnosus (Culturelle) 1 cap BID PO Last administered on at 08:17; Start 02/08/18 at 21:00 Piperacillin Sod/ Tazobactam Sod 3.375 gm/Sodium Chloride 50 ml @ 100 mls/hr Q6HRS IV Last administered on 02/12/18at 05:54; Start 02/08/18 at 18:00; Stop 02/12/18 at 09:07; Status DC Insulin Glargine (Lantus) 30 units QHS SQ Last administered on 02/09/18at 20:23 ; Start 02/09/18 at 21:00; Stop 02/10/18 at 09:14; Status DC Insulin Human Lispro (HumaLOG) 15 units TIDWMEALS SQ Last administered on at 17:24; Start 02/09/18 at 12:00; Stop 02/10/18 at 09:14; Status DC Potassium Chloride (Klor-Con) 20 meq 1X ONCE PO ; Start 02/09/18 at 09:15; Stop 02/09/18 at 09:16; Status DC Dexamethasone Sodium Phosphate (Decadron) 20 mg STK-MED ONCE .ROUTE ; Start 02/09/18 at 11:17; Stop 02/09/18 at 11:18; Status DC Propofol 20 ml @ As Directed STK-MED ONCE IV ; Start 02/09/18 at 11:17; Stop at 11:18; Status DC Famotidine (Pepcid Vial) 20 mg STK-MED ONCE .ROUTE ; Start 02/09/18 at 11:17; Stop 02/09/18 at 11:18; Status DC Ondansetron HCl (Zofran) 4 mg STK-MED ONCE .ROUTE ; Start 02/09/18 at 11:17; Stop 02/09/18 at 11:18; Status DC Fentanyl Citrate (Fentanyl 2ml Vial) 100 mcg STK-MED ONCE .ROUTE ; Start at 11:17; Stop 02/09/18 at 11:18; Status DC Midazolam HCl (Versed) 2 mg STK-MED ONCE .ROUTE ; Start 02/09/18 at 11:18; Stop 02/09/18 at 11:19; Status DC Sevoflurane (Ultane) 15 ml STK-MED ONCE IH ; Start 02/09/18 at 12:23; Stop 02/09 at 12:24; Status DC Insulin Human Lispro (HumaLOG VIAL) 2 unit 1X ONCE SQ Last administered on 02/09/18at 12:27; Start 02/09/18 at 12:30; Stop 02/09/18 at 12:31; Status DC Potassium Chloride (Klor-Con) 20 meq 1X ONCE PO Last administered on at 13:41; Start 02/09/18 at 13:45; Stop 02/09/18 at 13:46; Status DC Alprazolam (Xanax) 0.5 mg PRN Q8HRS PRN PO ANXIETY / AGITATION Last administered on 02/10/18at 21:37; Start 02/09/18 at 20:30 Insulin Human Lispro (HumaLOG) 25 units TIDWMEALS SQ Last administered on 02/14at 12:35; Start 02/10/18 at 12:00 Insulin Glargine (Lantus) 45 units QHS SQ Last administered on 02/13/18at 21:37 ; Start 02/10/18 at 21:00 Linezolid (Zyvox) 600 mg BID PO Last administered on 02/12/18at 09:00; Start 02/10/18 at 21:00; Stop 02/12/18 at 09:07; Status DC Enoxaparin Sodium (Lovenox Per Pharmacy Prophylaxis Dosing) 1 each PRN DAILY PRN MC SEE COMMENTS; Start 02/10/18 at 11:00 Enoxaparin Sodium (Lovenox 40mg Syringe) 40 mg Q24H SQ Last administered on at 12:22; Start 02/10/18 at 12:00 Ampicillin Sodium/ Sulbactam Sodium 3 gm/Sodium Chloride 100 ml @ 200 mls/hr Q6HRS IV Last administered on 02/14/18at 12:22; Start 02/12/18 at 12:00 Active Scripts Active Reported Ascorbic Acid 250 Mg Tablet 250 Mg PO DAILY Kelp (Iodine) 150 Mcg Tablet 150 Mcg PO PRN 1X PRN Latuda (Lurasidone Hcl) 120 Mg Tablet 120 Mg PO DAILY Latuda (Lurasidone Hcl) 20 Mg Tablet 20 Mg PO DAILY Lisinopril-Hctz 20-25 Mg Tab (Lisinopril/Hydrochlorothiazide) 1 Each Tablet 1 Tab PO DAILY Metformin Hcl 500 Mg Tablet 500 Mg PO BIDWMEALS Vitals/I & O Vital Sign - Last 24 Hours 02/13/18 02/13/18 02/13/18 02/13/18 14:50 15:00 16:00 19:00 Temp 98.3 98.8 98.3 98.8 Pulse 107 85 Resp 20 16 20 B/P (MAP) 157/96 (116) 151/101 (118) Pulse Ox 92 93 O2 Delivery Room Air Room Air Room Air Room Air 02/13/18 02/13/18 02/14/18 02/14/18 20:00 23:00 03:00 07:00 Temp 99.7 98.6 98.3 99.7 98.6 98.3 Pulse 98 98 102 Resp 20 20 16 B/P (MAP) 148/55 (86) 153/96 (115) 186/116 (139) Pulse Ox 93 93 94 O2 Delivery Room Air Room Air Room Air Room Air 02/14/18 02/14/18 02/14/18 08:00 08:18 11:00 Temp 98.3 98.3 Pulse 102 100 Resp 16 B/P (MAP) 186/116 142/93 (109) Pulse Ox 96 O2 Delivery Room Air Room Air Intake and Output 02/13/18 02/13/18 02/14/18 15:00 23:00 07:00 Intake Total 90 ml 1660 ml Balance 90 ml 1660 ml TREE VALLES MD Feb 14, 2018 13:30
--- NOTE | 2018-02-14 14:41 | PDOC ---
Infectious Disease Note Subjective Subjective feeling better ROS ROS no n/v/d/sob Vital Sign Vital Signs Vital Signs Date Time Temp Pulse Resp B/P (MAP) Pulse Ox O2 Delivery O2 Flow Rate FiO2 02/14/18 11:00 98.3 100 16 142/93 (109) 96 Room Air 98.3 Physical Exam PHYSICAL EXAM GEN AxOx3 male in nad HEENT: Pupils equally round. Oral mucosa is pink and moist. Poor dentition. She has few pustules below her nose. Facial hair noted. NECK: Supple. LUNGS: Clear to auscultation. HEART: S1, S2. ABDOMEN: Obese, bowel sounds active, soft, nontender. She has some yeast under the pannus area. EXTREMITIES: She has multiple small scabs right lower leg. Her left lower leg is edematous, warm and erythematous with wound VAC in place. She also has two wounds that are packed with gauze. Distal pulses palpable. SKIN: Warm without rash. Few skin tags noted. NEUROLOGIC: Alert, responds appropriately and follows simple commands. Labs Lab Laboratory Tests Test 02/13/18 16:32 02/13/18 20:24 02/14/18 07:44 02/14/18 11:20 Glucose (Fingerstick) 102 mg/dL (70-99) 193 mg/dL (70-99) 217 mg/dL (70-99) 144 mg/dL (70-99) Micro Microbiology 02/07/18 Anaerobic/Aerobic Culture - Final, Complete 02/07/18 Anaerobic Culture Result 1 (CHRISTI) - Final, Complete 02/07/18 Aerobic Culture - Final, Complete 02/07/18 Aerobic Culture Result 1 (CHRISTI) - Final, Complete 02/07/18 Antimicrobic Susceptibility - Final, Complete 02/07/18 Gram Stain - Final, Complete 02/07/18 Gram Stain Result 1 (CHRISTI) - Final, Complete 02/07/18 Gram Stain Result 2 (CHRISTI) - Final, Complete Objective Assessment 1. Severe cellulitis with abscess of left lower leg, status post irrigation and debridement excisional skin and subcutaneous tissue with wound VAC application on 02/07/2018. Cult MSSA s/ p repeat I and D 02/09, no bone involvement 2. Fever.resolved 3. Leukocytosis.resolved 4. Diabetes type 2, poorly controlled. 5. Schizophrenia. 6. Hypertension. 7.Nausea and vomiting Plan Plan of Care ceftriaxone when ready for dc home transition to po keflex 500mg po qid for 2 weeks wound vac care per ortho f/u with us in 2 weeks D/W ADINA ALVARADO MD Feb 14, 2018 14:41
[2018-02-14 15:33] VITALS: BP 151/104
[2018-02-14 19:15] VITALS: BP 159/106
[2018-02-14] MEDS: ALPRAZolam 0.5 MG TABLET PO PRN (20:08)
[2018-02-14] MEDS ORDERED: INSULIN LISPRO 300 UNITS/3 ML INSULN.PEN. SQ ONE (20:30)
[2018-02-14] MEDS ORDERED: INSULIN GLARGINE 300 UNITS/3 ML INSULN.PEN. SQ SCH (21:00)
[2018-02-14 23:20] VITALS: BP 145/99
[2018-02-15] MEDS: HYDROcodone/APAP 5/325MG 1 TAB TABLET PO PRN ×2 (00:25→09:01)
[2018-02-15 03:00] VITALS: BP 139/93
[2018-02-15] MEDS: ALPRAZolam 0.5 MG TABLET PO PRN (05:01)
[2018-02-15] MEDS: AMPICILLIN/SULBACTAM 3 GM in IV NORMAL SALINE 100ML 100 ML IV SCH ×3 (05:01→17:35)
[2018-02-15 07:00] VITALS: BP 147/98
[2018-02-15] MEDS: INSULIN LISPRO 300 UNITS/3 ML INSULN.PEN. SQ SCH ×6 (07:58→17:45)
[2018-02-15] MEDS: LURASIDONE 40 MG TABLET. PO SCH (08:58)
[2018-02-15] MEDS: LACTOBACILLUS RHAMNOSUS GG 1 CAPSULE. PO SCH ×2 (09:00→21:33)
[2018-02-15] MEDS: LISINOPRIL 20 MG TABLET PO SCH (09:00)
[2018-02-15] MEDS: hydroCHLOROthiazide 25 MG TABLET PO SCH (09:00)
[2018-02-15] MEDS: metFORMIN 500 MG TABLET PO SCH (09:00)
[2018-02-15] MEDS ORDERED: ONDANSETRON PF 4 MG/2 ML VIAL. IV PRN (09:45)
[2018-02-15] MEDS: NYSTATIN TOPICAL POWDER 15GM BOTTLE. TP SCH ×2 (10:04→21:00)
--- NOTE | 2018-02-15 10:16 | PDOC ---
PROGRESS NOTES Subjective Subjective Patient had headache this AM, was given two Trinity for this and had emesis shortly afterwards. Denies headache or nausea at this time. Objective Objective Vital Signs Date Time Temp Pulse Resp B/P (MAP) Pulse Ox O2 Delivery O2 Flow Rate FiO2 02/15/18 09:01 18 Room Air 02/15/18 09:00 88 147/98 02/15/18 07:00 98.5 93 98.5 02/15/18 01:25 2.0 Intake and Output 02/15/18 07:00 Intake Total 600 ml Balance 600 ml Intake Oral 600 ml # Voids 23 Physical Exam Abdomen: Normal bowel sounds, Soft, No tenderness Heart: Regular rate Extremities: Other (diffuse erythema and shallow sores bilateral LE's, wound vac in place L LE) General: Alert, Oriented X3, No acute distress Lungs: Clear to auscultation Assessment Assessment Problems Medical Problems: (1) Sepsis affecting skin Status: Acute Plan Plan of Care 1. Sepsis with MSSA cellulitis - stable, much improved. Continue IV abx while hospitalized then change to po when discharged per ID recommendations. 2. DM2 - controlled with insulins, will decrease Lantus a little due to low glucose yesterday. Nursing continues to work on patient teaching for diet and insulin administration. 3. nausea and vomiting - patient denies symptoms now, wanting to eat again. Zofran prn. Try to avoid narcotic pain meds. 4. HTN - Lisinopril increased for today but patient had emesis and may not have received the full dose. Follow. 5. schizophrenia - stable, continue home meds. 6. discharge planning - family has stated they can no longer take care of her at home. Waiting for SW to return Friday to help with planning, maybe to LTAC due to wound vac? Comment Review of Relevant I have reviewed the following items genesis (where applicable) has been applied. Labs Laboratory Tests Test 02/13/18 12:02 02/13/18 16:32 02/13/18 20:24 02/14/18 07:44 Glucose (Fingerstick) 140 mg/dL (70-99) 102 mg/dL (70-99) 193 mg/dL (70-99) 217 mg/dL (70-99) Test 02/14/18 11:20 02/14/18 16:40 02/14/18 20:11 02/15/18 07:53 Glucose (Fingerstick) 144 mg/dL (70-99) 83 mg/dL (70-99) 216 mg/dL (70-99) 103 mg/dL (70-99) Laboratory Tests Test 02/14/18 11:20 02/14/18 16:40 02/14/18 20:11 02/15/18 07:53 Glucose (Fingerstick) 144 mg/dL (70-99) 83 mg/dL (70-99) 216 mg/dL (70-99) 103 mg/dL (70-99) Microbiology 02/07/18 Anaerobic/Aerobic Culture - Final, Complete 02/07/18 Anaerobic Culture Result 1 (CHRISTI) - Final, Complete 02/07/18 Aerobic Culture - Final, Complete 02/07/18 Aerobic Culture Result 1 (CHRISTI) - Final, Complete 02/07/18 Antimicrobic Susceptibility - Final, Complete 02/07/18 Gram Stain - Final, Complete 02/07/18 Gram Stain Result 1 (CHRISTI) - Final, Complete 02/07/18 Gram Stain Result 2 (CHRISTI) - Final, Complete Medications Current Medications Vancomycin HCl (Vanco Per Pharmacy) 1 each PRN DAILY PRN MC SEE COMMENTS Last administered on 02/09/18at 17:18; Start 02/07/18 at 01:00; Stop 02/10/18 at 10:41 ; Status DC Sodium Chloride 1,000 ml @ 1,000 mls/hr 1X ONCE IV Last administered on at 01:00; Start 02/07/18 at 01:00; Stop 02/07/18 at 01:59; Status DC Meropenem 500 mg/ Sodium Chloride 50 ml @ 100 mls/hr Q8HRS IV Last administered on 02/08/18at 06:05; Start 02/07/18 at 06:00; Stop 02/08/18 at 14:21 ; Status DC Vancomycin HCl 2 gm/Sodium Chloride 500 ml @ 250 mls/hr 1X ONCE IV Last administered on 02/07/18at 01:00; Start 02/07/18 at 01:00; Stop 02/07/18 at 02:59 ; Status DC Sodium Chloride 1,000 ml @ 150 mls/hr Q6H40M IV Last administered on at 18:39; Start 02/07/18 at 02:00; Stop 02/08/18 at 01:59; Status DC Vancomycin HCl 1.75 gm/Sodium Chloride 500 ml @ 250 mls/hr Q8H IV Last administered on 02/07/18at 21:09; Start 02/07/18 at 09:00; Stop 02/08/18 at 05:39 ; Status DC Vancomycin HCl (Vancomycin Trough Level) 1 each 1X ONCE MC Last administered on 02/08/18at 03:30; Start 02/08/18 at 03:30; Stop 02/08/18 at 03:31; Status DC Lidocaine HCl (Xylocaine-Mpf 2% Vial) 10 ml 1X ONCE INJ ; Start 02/07/18 at 09: 30; Stop 02/07/18 at 09:31; Status Cancel Insulin Human Lispro (HumaLOG) 0-7 UNITS TIDWMEALS SQ Last administered on at 08:37; Start 02/07/18 at 12:00 Dextrose (Dextrose 50%-Water Syringe) 12.5 gm PRN Q15MIN PRN IV SEE COMMENTS Last administered on 02/10/18at 22:00; Start 02/07/18 at 09:30 Lidocaine HCl 20 ml 1X ONCE IJ ; Start 02/07/18 at 09:30; Stop 02/07/18 at 09: 31; Status DC Lisinopril (Prinivil) 20 mg DAILY PO Last administered on 02/14/18at 08:18; Start 02/07/18 at 10:00; Stop 02/14/18 at 13:23; Status DC Lurasidone HCl (Latuda) 140 mg DAILYWBKFT PO Last administered on 02/15/18at 08 :58; Start 02/08/18 at 08:00 Non-Formulary Medication (Lurasidone Hcl (Latuda)) 120 mg DAILY PO ; Start 02/08 at 09:00; Status UNV Hydrochlorothiazide (Hydrodiuril) 25 mg DAILY PO Last administered on at 09:00; Start 02/07/18 at 10:00 Fentanyl Citrate (Fentanyl 2ml Vial) 25 mcg PRN Q6HRS PRN IV PAIN Last administered on 02/08/18at 11:33; Start 02/07/18 at 11:30; Stop 02/14/18 at 13: 23; Status DC Acetaminophen/ Hydrocodone Bitart (Lortab 5/325) 1 tab PRN QID PRN PO MOD TO SEVERE PAIN Last administered on 02/15/18at 00:25; Start 02/07/18 at 11:30 Acetaminophen/ Hydrocodone Bitart (Lortab 5/325) 2 tab PRN QID PRN PO SEVERE PAIN Last administered on 02/15/18at 09:01; Start 02/07/18 at 11:30; Stop 02/15 at 09:47; Status DC Ondansetron HCl (Zofran) 4 mg PRN Q6HRS PRN IV NAUSEA/VOMITING; Start 02/07/18 at 12:30; Stop 02/07/18 at 19:00; Status DC Fentanyl Citrate (Fentanyl 2ml Vial) 25 mcg PRN Q5MIN PRN IV MILD PAIN; Start 02/07/18 at 12:30; Stop 02/07/18 at 19:00; Status DC Fentanyl Citrate (Fentanyl 2ml Vial) 50 mcg PRN Q5MIN PRN IV MODERATE TO SEVERE PAIN; Start 02/07/18 at 12:30; Stop 02/07/18 at 19:00; Status DC Morphine Sulfate (Morphine Sulfate) 1 mg PRN Q10MIN PRN IV SEVERE PAIN; Start 02/07/18 at 12:30; Stop 02/07/18 at 19:00; Status DC Ringer's Solution 1,000 ml @ 30 mls/hr Q24H IV ; Start 02/07/18 at 12:27; Stop 02/08/18 at 00:26; Status DC Lidocaine HCl (Xylocaine-Mpf 1% 2ml Vial) 2 ml 1X PRN PRN ID IV START; Start 02/07/18 at 12:30; Stop 02/07/18 at 19:00; Status DC Hydromorphone HCl (Dilaudid) 0.5 mg PRN Q10MIN PRN IV SEV PAIN, Second choice; Start 02/07/18 at 12:30; Stop 02/07/18 at 19:00; Status DC Prochlorperazine Edisylate (Compazine) 5 mg PACU PRN PRN IV NAUSEA, MRX1; Start 02/07/18 at 12:30; Stop 02/07/18 at 19:00; Status DC Dexamethasone Sodium Phosphate (Decadron) 20 mg STK-MED ONCE .ROUTE ; Start 02/07/18 at 12:35; Stop 02/07/18 at 12:36; Status DC Ondansetron HCl (Zofran) 4 mg STK-MED ONCE .ROUTE ; Start 02/07/18 at 12:35; Stop 02/07/18 at 12:36; Status DC Propofol 20 ml @ As Directed STK-MED ONCE IV ; Start 02/07/18 at 12:35; Stop at 12:36; Status DC Fentanyl Citrate (Fentanyl 2ml Vial) 100 mcg STK-MED ONCE .ROUTE ; Start at 12:36; Stop 02/07/18 at 12:37; Status DC Lidocaine HCl 20 ml STK-MED ONCE .ROUTE ; Start 02/07/18 at 13:38; Stop at 14:39; Status DC Bupivacaine HCl (Sensorcaine Mpf 0.5%) 30 ml STK-MED ONCE .ROUTE ; Start at 13:39; Stop 02/07/18 at 14:39; Status DC Sevoflurane (Ultane) 30 ml STK-MED ONCE IH ; Start 02/07/18 at 15:25; Stop 02/07 at 15:26; Status DC Insulin Human Lispro (HumaLOG VIAL) 4 unit 1X ONCE SQ Last administered on 02/07/18at 16:05; Start 02/07/18 at 16:00; Stop 02/07/18 at 16:12; Status DC Insulin Human Lispro (HumaLOG) 4 units 1X SQ ; Start 02/07/18 at 16:15; Stop at 11:12; Status DC Insulin Human Lispro (HumaLOG) 12 units 1X ONCE SQ Last administered on at 22:57; Start 02/07/18 at 21:30; Stop 02/07/18 at 21:31; Status DC Nystatin (Nystop) 1 padmini BID TP Last administered on 02/14/18at 20:15; Start at 21:30 Vancomycin HCl 1.75 gm/Sodium Chloride 500 ml @ 250 mls/hr Q12H IV Last administered on 02/10/18at 04:14; Start 02/08/18 at 16:00; Stop 02/10/18 at 10:41 ; Status DC Vancomycin HCl (Vancomycin Trough Level) 1 each 1X ONCE MC ; Start 02/09/18 at 15:30; Stop 02/09/18 at 15:31; Status DC Insulin Glargine (Lantus) 20 units QHS SQ Last administered on 02/08/18at 21:00 ; Start 02/08/18 at 21:00; Stop 02/09/18 at 09:08; Status DC Insulin Human Lispro (HumaLOG) 10 units TIDWMEALS SQ Last administered on at 08:12; Start 02/08/18 at 12:00; Stop 02/09/18 at 09:08; Status DC Metformin HCl (Glucophage) 500 mg 1000 PO Last administered on 02/15/18at 09:00 ; Start 02/08/18 at 17:00 Lactobacillus Rhamnosus (Culturelle) 1 cap BID PO Last administered on at 09:00; Start 02/08/18 at 21:00 Piperacillin Sod/ Tazobactam Sod 3.375 gm/Sodium Chloride 50 ml @ 100 mls/hr Q6HRS IV Last administered on 02/12/18at 05:54; Start 02/08/18 at 18:00; Stop 02/12/18 at 09:07; Status DC Insulin Glargine (Lantus) 30 units QHS SQ Last administered on 02/09/18at 20:23 ; Start 02/09/18 at 21:00; Stop 02/10/18 at 09:14; Status DC Insulin Human Lispro (HumaLOG) 15 units TIDWMEALS SQ Last administered on at 17:24; Start 02/09/18 at 12:00; Stop 02/10/18 at 09:14; Status DC Potassium Chloride (Klor-Con) 20 meq 1X ONCE PO ; Start 02/09/18 at 09:15; Stop 02/09/18 at 09:16; Status DC Dexamethasone Sodium Phosphate (Decadron) 20 mg STK-MED ONCE .ROUTE ; Start 02/09/18 at 11:17; Stop 02/09/18 at 11:18; Status DC Propofol 20 ml @ As Directed STK-MED ONCE IV ; Start 02/09/18 at 11:17; Stop at 11:18; Status DC Famotidine (Pepcid Vial) 20 mg STK-MED ONCE .ROUTE ; Start 02/09/18 at 11:17; Stop 02/09/18 at 11:18; Status DC Ondansetron HCl (Zofran) 4 mg STK-MED ONCE .ROUTE ; Start 02/09/18 at 11:17; Stop 02/09/18 at 11:18; Status DC Fentanyl Citrate (Fentanyl 2ml Vial) 100 mcg STK-MED ONCE .ROUTE ; Start at 11:17; Stop 02/09/18 at 11:18; Status DC Midazolam HCl (Versed) 2 mg STK-MED ONCE .ROUTE ; Start 02/09/18 at 11:18; Stop 02/09/18 at 11:19; Status DC Sevoflurane (Ultane) 15 ml STK-MED ONCE IH ; Start 02/09/18 at 12:23; Stop 02/09 at 12:24; Status DC Insulin Human Lispro (HumaLOG VIAL) 2 unit 1X ONCE SQ Last administered on 02/09/18at 12:27; Start 02/09/18 at 12:30; Stop 02/09/18 at 12:31; Status DC Potassium Chloride (Klor-Con) 20 meq 1X ONCE PO Last administered on at 13:41; Start 02/09/18 at 13:45; Stop 02/09/18 at 13:46; Status DC Alprazolam (Xanax) 0.5 mg PRN Q8HRS PRN PO ANXIETY / AGITATION Last administered on 02/15/18at 05:01; Start 02/09/18 at 20:30 Insulin Human Lispro (HumaLOG) 25 units TIDWMEALS SQ Last administered on 02/14at 12:35; Start 02/10/18 at 12:00 Insulin Glargine (Lantus) 45 units QHS SQ Last administered on 02/13/18at 21:37 ; Start 02/10/18 at 21:00; Stop 02/14/18 at 13:23; Status DC Linezolid (Zyvox) 600 mg BID PO Last administered on 02/12/18at 09:00; Start 02/10/18 at 21:00; Stop 02/12/18 at 09:07; Status DC Enoxaparin Sodium (Lovenox Per Pharmacy Prophylaxis Dosing) 1 each PRN DAILY PRN MC SEE COMMENTS; Start 02/10/18 at 11:00 Enoxaparin Sodium (Lovenox 40mg Syringe) 40 mg Q24H SQ Last administered on at 12:22; Start 02/10/18 at 12:00 Ampicillin Sodium/ Sulbactam Sodium 3 gm/Sodium Chloride 100 ml @ 200 mls/hr Q6HRS IV Last administered on 02/15/18at 05:01; Start 02/12/18 at 12:00 Insulin Glargine (Lantus) 50 units QHS SQ Last administered on 02/14/18at 20:17 ; Start 02/14/18 at 21:00 Lisinopril (Prinivil) 40 mg DAILY PO Last administered on 02/15/18at 09:00; Start 02/15/18 at 09:00 Insulin Human Lispro (HumaLOG) 2 units 1X ONCE SQ Last administered on at 20:21; Start 02/14/18 at 20:30; Stop 02/14/18 at 20:31; Status DC Ondansetron HCl (Zofran) 4 mg PRN Q6HRS PRN IV NAUSEA/VOMITING; Start at 09:45 Acetaminophen (Tylenol) 1,000 mg PRN Q6HRS PRN PO MILD PAIN; Start 02/15/18 at 09:45 Active Scripts Active Reported Ascorbic Acid 250 Mg Tablet 250 Mg PO DAILY Kelp (Iodine) 150 Mcg Tablet 150 Mcg PO PRN 1X PRN Latuda (Lurasidone Hcl) 120 Mg Tablet 120 Mg PO DAILY Latuda (Lurasidone Hcl) 20 Mg Tablet 20 Mg PO DAILY Lisinopril-Hctz 20-25 Mg Tab (Lisinopril/Hydrochlorothiazide) 1 Each Tablet 1 Tab PO DAILY Metformin Hcl 500 Mg Tablet 500 Mg PO BIDWMEALS Vitals/I & O Vital Sign - Last 24 Hours 02/14/18 02/14/18 02/14/18 02/14/18 11:00 15:33 19:15 20:35 Temp 98.3 98.4 98.6 98.3 98.4 98.6 Pulse 100 89 102 Resp 16 16 18 B/P (MAP) 142/93 (109) 151/104 (120) 159/106 (123) Pulse Ox 96 95 93 O2 Delivery Room Air Room Air Room Air Room Air O2 Flow Rate 2.0 02/14/18 02/15/18 02/15/18 02/15/18 23:20 00:25 01:25 03:00 Temp 98.5 98.1 98.5 98.1 Pulse 94 99 Resp 18 18 16 18 B/P (MAP) 145/99 (114) 139/93 (108) Pulse Ox 91 91 91 91 O2 Delivery Room Air Room Air Room Air Room Air O2 Flow Rate 2.0 2.0 02/15/18 02/15/18 02/15/18 07:00 09:00 09:01 Temp 98.5 98.5 Pulse 88 88 Resp 16 18 B/P (MAP) 147/98 (114) 147/98 Pulse Ox 93 O2 Delivery Room Air Room Air Intake and Output 02/14/18 02/14/18 02/15/18 15:00 23:00 07:00 Intake Total 600 ml Balance 600 ml TREE VALLES MD Feb 15, 2018 10:16
[2018-02-15 11:00] VITALS: BP 141/100
[2018-02-15] MEDS: ENOXAPARIN 40 MG/0.4 ML SYRINGE. SQ SCH (12:18)
--- NOTE | 2018-02-15 12:28 | PDOC ---
Infectious Disease Note Subjective Subjective c/o headache earlier then after taking pain med developed N/V. Feeling some better now. No F/C/S/SOA ROS ROS per HPI otherwise neg Vital Sign Vital Signs Vital Signs Date Time Temp Pulse Resp B/P (MAP) Pulse Ox O2 Delivery O2 Flow Rate FiO2 02/15/18 11:00 98.7 91 16 141/100 (114) 96 Room Air 98.7 02/15/18 08:00 2.0 Physical Exam PHYSICAL EXAM GENERAL: propped up in bed, alert, NAD HEENT: Oral mucosa is pink and moist. Poor dentition. LUNGS: Clear to auscultation. HEART: S1, S2. ABDOMEN: Obese, bowel sounds active, soft, nontender. EXTREMITIES: Left leg wound vac in place. Less swelling and redness. A suture in place. SKIN: Warm without rash. NEUROLOGIC: Alert, responds appropriately and follows simple commands. Labs Lab Laboratory Tests Test 02/14/18 16:40 02/14/18 20:11 02/15/18 07:53 02/15/18 12:01 Glucose (Fingerstick) 83 mg/dL (70-99) 216 mg/dL (70-99) 103 mg/dL (70-99) 137 mg/dL (70-99) Micro Objective Assessment Severe cellulitis with abscess of left lower leg - improving -s/p I and D, excisional, skin & subcutaneous tissue w/ wound vac application on 02/07. MSSA -s/p bedside I and D 02/07. culture in process -Precipitated by multiple mosquito bites and scratching Fever - resolved Leukocytosis Diabetes type II, poorly controlled Schizophrenia HTN Plan Plan of Care Unasyn when ready for dc home transition to po Keflex 500mg po qid for 2 weeks wound vac care per ortho f/u with us in 2 weeks Supportive care Attending Co-Sign The patient was seen and interviewed as well as examined at the bedside. The chart was reviewed. The case was discussed. Agree with the plan of care. FARIHA KATZ APRN Feb 15, 2018 12:28 ADINA DE LEON MD Feb 15, 2018 14:47
[2018-02-15 15:00] VITALS: BP 124/93
[2018-02-15] MEDS: ACETAMINOPHEN 500 MG TABLET PO PRN ×2 (15:01→21:31)
[2018-02-15 19:00] VITALS: BP 168/101
[2018-02-15] MEDS ORDERED: INSULIN GLARGINE 300 UNITS/3 ML INSULN.PEN. SQ SCH (21:00)
[2018-02-15] MEDS ORDERED: cloNIDine HCL 0.1 MG TABLET PO PRN (21:15)
[2018-02-15 23:03] VITALS: BP 106/70
[2018-02-16] MEDS: AMPICILLIN/SULBACTAM 3 GM in IV NORMAL SALINE 100ML 100 ML IV SCH ×2 (00:47→06:06)
[2018-02-16 03:00] VITALS: BP 130/90
[2018-02-16 07:00] VITALS: BP 134/89
[2018-02-16] MEDS: ACETAMINOPHEN 500 MG TABLET PO PRN (07:29)
--- NOTE | 2018-02-16 07:53 | PDOC ---
PROGRESS NOTES Subjective Subjective Patient without complaint. No further n/v. Objective Objective Vital Signs Date Time Temp Pulse Resp B/P (MAP) Pulse Ox O2 Delivery O2 Flow Rate FiO2 02/16/18 03:00 98.4 81 16 130/90 (103) 93 Room Air 98.4 02/15/18 20:20 2.0 Intake and Output 02/16/18 07:00 Intake Total 800 ml Balance 800 ml Intake Oral 800 ml # Voids 17 # Bowel Movements 1 Physical Exam Abdomen: Normal bowel sounds, Soft, No tenderness Heart: Regular rate Extremities: Other (mild diffuse erythema and edema L LE, wound vac in place) General: Alert, Oriented X3, No acute distress Lungs: Clear to auscultation Assessment Assessment Problems Medical Problems: (1) Sepsis affecting skin Status: Acute Plan Plan of Care 1. L LE cellulitis - MSSA. Much improved. Continue wound vac, change to po abx per ID recommendations. 2. uncontrolled DM2 - blood sugars much better and less labile, continue insulins. Patient states she feels better about giving herself injections. 3. HTN - Lisinopril was increased yesterday due to elevated BP's but patient had emesis shortly after taking meds so suspect she did not receive the full dose. Continue present dose. 4. n/v - resolved, patient eating 100% of meals. 5. schizophrenia - stable, continue home meds. 6. discharge planning - patient is stable for discharge today, orders written. Family has stated they can no longer take care of her at home but apparently haven't discussed this with her as she was surprised to hear this from me today. She appears agreeable to short stay in senior living. Patient has medicaid only per chart. Will await further planning by today. Comment Review of Relevant I have reviewed the following items genesis (where applicable) has been applied. Labs Laboratory Tests Test 02/14/18 11:20 02/14/18 16:40 02/14/18 20:11 02/15/18 07:53 Glucose (Fingerstick) 144 mg/dL (70-99) 83 mg/dL (70-99) 216 mg/dL (70-99) 103 mg/dL (70-99) Test 02/15/18 12:01 02/15/18 16:29 02/15/18 20:58 02/16/18 06:25 Glucose (Fingerstick) 137 mg/dL (70-99) 204 mg/dL (70-99) 135 mg/dL (70-99) 120 mg/dL (70-99) Laboratory Tests Test 02/15/18 07:53 02/15/18 12:01 02/15/18 16:29 02/15/18 20:58 Glucose (Fingerstick) 103 mg/dL (70-99) 137 mg/dL (70-99) 204 mg/dL (70-99) 135 mg/dL (70-99) Test 02/16/18 06:25 Glucose (Fingerstick) 120 mg/dL (70-99) Microbiology 02/07/18 Anaerobic/Aerobic Culture - Final, Complete 02/07/18 Anaerobic Culture Result 1 (CHRISTI) - Final, Complete 02/07/18 Aerobic Culture - Final, Complete 02/07/18 Aerobic Culture Result 1 (CHRISTI) - Final, Complete 02/07/18 Antimicrobic Susceptibility - Final, Complete 02/07/18 Gram Stain - Final, Complete 02/07/18 Gram Stain Result 1 (CHRISTI) - Final, Complete 02/07/18 Gram Stain Result 2 (CHRISTI) - Final, Complete Medications Current Medications Vancomycin HCl (Vanco Per Pharmacy) 1 each PRN DAILY PRN MC SEE COMMENTS Last administered on 02/09/18at 17:18; Start 02/07/18 at 01:00; Stop 02/10/18 at 10:41 ; Status DC Sodium Chloride 1,000 ml @ 1,000 mls/hr 1X ONCE IV Last administered on at 01:00; Start 02/07/18 at 01:00; Stop 02/07/18 at 01:59; Status DC Meropenem 500 mg/ Sodium Chloride 50 ml @ 100 mls/hr Q8HRS IV Last administered on 02/08/18at 06:05; Start 02/07/18 at 06:00; Stop 02/08/18 at 14:21 ; Status DC Vancomycin HCl 2 gm/Sodium Chloride 500 ml @ 250 mls/hr 1X ONCE IV Last administered on 02/07/18at 01:00; Start 02/07/18 at 01:00; Stop 02/07/18 at 02:59 ; Status DC Sodium Chloride 1,000 ml @ 150 mls/hr Q6H40M IV Last administered on at 18:39; Start 02/07/18 at 02:00; Stop 02/08/18 at 01:59; Status DC Vancomycin HCl 1.75 gm/Sodium Chloride 500 ml @ 250 mls/hr Q8H IV Last administered on 02/07/18at 21:09; Start 02/07/18 at 09:00; Stop 02/08/18 at 05:39 ; Status DC Vancomycin HCl (Vancomycin Trough Level) 1 each 1X ONCE MC Last administered on 02/08/18at 03:30; Start 02/08/18 at 03:30; Stop 02/08/18 at 03:31; Status DC Lidocaine HCl (Xylocaine-Mpf 2% Vial) 10 ml 1X ONCE INJ ; Start 02/07/18 at 09: 30; Stop 02/07/18 at 09:31; Status Cancel Insulin Human Lispro (HumaLOG) 0-7 UNITS TIDWMEALS SQ Last administered on at 17:43; Start 02/07/18 at 12:00 Dextrose (Dextrose 50%-Water Syringe) 12.5 gm PRN Q15MIN PRN IV SEE COMMENTS Last administered on 02/10/18at 22:00; Start 02/07/18 at 09:30 Lidocaine HCl 20 ml 1X ONCE IJ ; Start 02/07/18 at 09:30; Stop 02/07/18 at 09: 31; Status DC Lisinopril (Prinivil) 20 mg DAILY PO Last administered on 02/14/18at 08:18; Start 02/07/18 at 10:00; Stop 02/14/18 at 13:23; Status DC Lurasidone HCl (Latuda) 140 mg DAILYWBKFT PO Last administered on 02/15/18at 08 :58; Start 02/08/18 at 08:00 Non-Formulary Medication (Lurasidone Hcl (Latuda)) 120 mg DAILY PO ; Start 02/08 at 09:00; Status UNV Hydrochlorothiazide (Hydrodiuril) 25 mg DAILY PO Last administered on at 09:00; Start 02/07/18 at 10:00 Fentanyl Citrate (Fentanyl 2ml Vial) 25 mcg PRN Q6HRS PRN IV PAIN Last administered on 02/08/18at 11:33; Start 02/07/18 at 11:30; Stop 02/14/18 at 13: 23; Status DC Acetaminophen/ Hydrocodone Bitart (Lortab 5/325) 1 tab PRN QID PRN PO MOD TO SEVERE PAIN Last administered on 02/15/18at 00:25; Start 02/07/18 at 11:30 Acetaminophen/ Hydrocodone Bitart (Lortab 5/325) 2 tab PRN QID PRN PO SEVERE PAIN Last administered on 02/15/18at 09:01; Start 02/07/18 at 11:30; Stop 02/15 at 09:47; Status DC Ondansetron HCl (Zofran) 4 mg PRN Q6HRS PRN IV NAUSEA/VOMITING; Start 02/07/18 at 12:30; Stop 02/07/18 at 19:00; Status DC Fentanyl Citrate (Fentanyl 2ml Vial) 25 mcg PRN Q5MIN PRN IV MILD PAIN; Start 02/07/18 at 12:30; Stop 02/07/18 at 19:00; Status DC Fentanyl Citrate (Fentanyl 2ml Vial) 50 mcg PRN Q5MIN PRN IV MODERATE TO SEVERE PAIN; Start 02/07/18 at 12:30; Stop 02/07/18 at 19:00; Status DC Morphine Sulfate (Morphine Sulfate) 1 mg PRN Q10MIN PRN IV SEVERE PAIN; Start 02/07/18 at 12:30; Stop 02/07/18 at 19:00; Status DC Ringer's Solution 1,000 ml @ 30 mls/hr Q24H IV ; Start 02/07/18 at 12:27; Stop 02/08/18 at 00:26; Status DC Lidocaine HCl (Xylocaine-Mpf 1% 2ml Vial) 2 ml 1X PRN PRN ID IV START; Start 02/07/18 at 12:30; Stop 02/07/18 at 19:00; Status DC Hydromorphone HCl (Dilaudid) 0.5 mg PRN Q10MIN PRN IV SEV PAIN, Second choice; Start 02/07/18 at 12:30; Stop 02/07/18 at 19:00; Status DC Prochlorperazine Edisylate (Compazine) 5 mg PACU PRN PRN IV NAUSEA, MRX1; Start 02/07/18 at 12:30; Stop 02/07/18 at 19:00; Status DC Dexamethasone Sodium Phosphate (Decadron) 20 mg STK-MED ONCE .ROUTE ; Start 02/07/18 at 12:35; Stop 02/07/18 at 12:36; Status DC Ondansetron HCl (Zofran) 4 mg STK-MED ONCE .ROUTE ; Start 02/07/18 at 12:35; Stop 02/07/18 at 12:36; Status DC Propofol 20 ml @ As Directed STK-MED ONCE IV ; Start 02/07/18 at 12:35; Stop at 12:36; Status DC Fentanyl Citrate (Fentanyl 2ml Vial) 100 mcg STK-MED ONCE .ROUTE ; Start at 12:36; Stop 02/07/18 at 12:37; Status DC Lidocaine HCl 20 ml STK-MED ONCE .ROUTE ; Start 02/07/18 at 13:38; Stop at 14:39; Status DC Bupivacaine HCl (Sensorcaine Mpf 0.5%) 30 ml STK-MED ONCE .ROUTE ; Start at 13:39; Stop 02/07/18 at 14:39; Status DC Sevoflurane (Ultane) 30 ml STK-MED ONCE IH ; Start 02/07/18 at 15:25; Stop 02/07 at 15:26; Status DC Insulin Human Lispro (HumaLOG VIAL) 4 unit 1X ONCE SQ Last administered on 02/07/18at 16:05; Start 02/07/18 at 16:00; Stop 02/07/18 at 16:12; Status DC Insulin Human Lispro (HumaLOG) 4 units 1X SQ ; Start 02/07/18 at 16:15; Stop at 11:12; Status DC Insulin Human Lispro (HumaLOG) 12 units 1X ONCE SQ Last administered on at 22:57; Start 02/07/18 at 21:30; Stop 02/07/18 at 21:31; Status DC Nystatin (Nystop) 1 padmini BID TP Last administered on 02/15/18at 10:04; Start at 21:30 Vancomycin HCl 1.75 gm/Sodium Chloride 500 ml @ 250 mls/hr Q12H IV Last administered on 02/10/18at 04:14; Start 02/08/18 at 16:00; Stop 02/10/18 at 10:41 ; Status DC Vancomycin HCl (Vancomycin Trough Level) 1 each 1X ONCE MC ; Start 02/09/18 at 15:30; Stop 02/09/18 at 15:31; Status DC Insulin Glargine (Lantus) 20 units QHS SQ Last administered on 02/08/18at 21:00 ; Start 02/08/18 at 21:00; Stop 02/09/18 at 09:08; Status DC Insulin Human Lispro (HumaLOG) 10 units TIDWMEALS SQ Last administered on at 08:12; Start 02/08/18 at 12:00; Stop 02/09/18 at 09:08; Status DC Metformin HCl (Glucophage) 500 mg 1000 PO Last administered on 02/15/18at 09:00 ; Start 02/08/18 at 17:00 Lactobacillus Rhamnosus (Culturelle) 1 cap BID PO Last administered on at 21:33; Start 02/08/18 at 21:00 Piperacillin Sod/ Tazobactam Sod 3.375 gm/Sodium Chloride 50 ml @ 100 mls/hr Q6HRS IV Last administered on 02/12/18at 05:54; Start 02/08/18 at 18:00; Stop 02/12/18 at 09:07; Status DC Insulin Glargine (Lantus) 30 units QHS SQ Last administered on 02/09/18at 20:23 ; Start 02/09/18 at 21:00; Stop 02/10/18 at 09:14; Status DC Insulin Human Lispro (HumaLOG) 15 units TIDWMEALS SQ Last administered on at 17:24; Start 02/09/18 at 12:00; Stop 02/10/18 at 09:14; Status DC Potassium Chloride (Klor-Con) 20 meq 1X ONCE PO ; Start 02/09/18 at 09:15; Stop 02/09/18 at 09:16; Status DC Dexamethasone Sodium Phosphate (Decadron) 20 mg STK-MED ONCE .ROUTE ; Start 02/09/18 at 11:17; Stop 02/09/18 at 11:18; Status DC Propofol 20 ml @ As Directed STK-MED ONCE IV ; Start 02/09/18 at 11:17; Stop at 11:18; Status DC Famotidine (Pepcid Vial) 20 mg STK-MED ONCE .ROUTE ; Start 02/09/18 at 11:17; Stop 02/09/18 at 11:18; Status DC Ondansetron HCl (Zofran) 4 mg STK-MED ONCE .ROUTE ; Start 02/09/18 at 11:17; Stop 02/09/18 at 11:18; Status DC Fentanyl Citrate (Fentanyl 2ml Vial) 100 mcg STK-MED ONCE .ROUTE ; Start at 11:17; Stop 02/09/18 at 11:18; Status DC Midazolam HCl (Versed) 2 mg STK-MED ONCE .ROUTE ; Start 02/09/18 at 11:18; Stop 02/09/18 at 11:19; Status DC Sevoflurane (Ultane) 15 ml STK-MED ONCE IH ; Start 02/09/18 at 12:23; Stop 02/09 at 12:24; Status DC Insulin Human Lispro (HumaLOG VIAL) 2 unit 1X ONCE SQ Last administered on 02/09/18at 12:27; Start 02/09/18 at 12:30; Stop 02/09/18 at 12:31; Status DC Potassium Chloride (Klor-Con) 20 meq 1X ONCE PO Last administered on at 13:41; Start 02/09/18 at 13:45; Stop 02/09/18 at 13:46; Status DC Alprazolam (Xanax) 0.5 mg PRN Q8HRS PRN PO ANXIETY / AGITATION Last administered on 02/15/18at 05:01; Start 02/09/18 at 20:30; Stop 02/15/18 at 10: 17; Status DC Insulin Human Lispro (HumaLOG) 25 units TIDWMEALS SQ Last administered on 02/15at 17:45; Start 02/10/18 at 12:00 Insulin Glargine (Lantus) 45 units QHS SQ Last administered on 02/13/18at 21:37 ; Start 02/10/18 at 21:00; Stop 02/14/18 at 13:23; Status DC Linezolid (Zyvox) 600 mg BID PO Last administered on 02/12/18at 09:00; Start 02/10/18 at 21:00; Stop 02/12/18 at 09:07; Status DC Enoxaparin Sodium (Lovenox Per Pharmacy Prophylaxis Dosing) 1 each PRN DAILY PRN MC SEE COMMENTS; Start 02/10/18 at 11:00 Enoxaparin Sodium (Lovenox 40mg Syringe) 40 mg Q24H SQ Last administered on at 12:18; Start 02/10/18 at 12:00 Ampicillin Sodium/ Sulbactam Sodium 3 gm/Sodium Chloride 100 ml @ 200 mls/hr Q6HRS IV Last administered on 02/16/18at 06:06; Start 02/12/18 at 12:00 Insulin Glargine (Lantus) 50 units QHS SQ Last administered on 02/14/18at 20:17 ; Start 02/14/18 at 21:00; Stop 02/15/18 at 10:10; Status DC Lisinopril (Prinivil) 40 mg DAILY PO Last administered on 02/15/18at 09:00; Start 02/15/18 at 09:00 Insulin Human Lispro (HumaLOG) 2 units 1X ONCE SQ Last administered on at 20:21; Start 02/14/18 at 20:30; Stop 02/14/18 at 20:31; Status DC Ondansetron HCl (Zofran) 4 mg PRN Q6HRS PRN IV NAUSEA/VOMITING Last administered on 02/15/18at 10:04; Start 02/15/18 at 09:45 Acetaminophen (Tylenol) 1,000 mg PRN Q6HRS PRN PO MILD PAIN Last administered on 02/16/18at 07:29; Start 02/15/18 at 09:45 Insulin Glargine (Lantus) 45 units QHS SQ Last administered on 02/15/18at 21:48 ; Start 02/15/18 at 21:00 Clonidine HCl (Catapres) 0.1 mg PRN Q8HRS PRN PO SBP>160 Last administered on 02/15/18at 21:32; Start 02/15/18 at 21:15 Active Scripts Active Reported Ascorbic Acid 250 Mg Tablet 250 Mg PO DAILY Kelp (Iodine) 150 Mcg Tablet 150 Mcg PO PRN 1X PRN Latuda (Lurasidone Hcl) 120 Mg Tablet 120 Mg PO DAILY Latuda (Lurasidone Hcl) 20 Mg Tablet 20 Mg PO DAILY Lisinopril-Hctz 20-25 Mg Tab (Lisinopril/Hydrochlorothiazide) 1 Each Tablet 1 Tab PO DAILY Metformin Hcl 500 Mg Tablet 500 Mg PO BIDWMEALS Vitals/I & O Vital Sign - Last 24 Hours 02/15/18 02/15/18 02/15/18 02/15/18 08:00 09:00 09:01 11:00 Temp 98.7 98.7 Pulse 88 91 Resp 18 16 B/P (MAP) 147/98 141/100 (114) Pulse Ox 96 O2 Delivery Room Air Room Air Room Air O2 Flow Rate 2.0 02/15/18 02/15/18 02/15/18 02/15/18 15:00 19:00 20:20 21:32 Temp 98.5 98.6 98.5 98.6 Pulse 100 98 98 Resp 16 17 B/P (MAP) 124/93 (103) 168/101 (123) 168/101 Pulse Ox 94 98 O2 Delivery Room Air Room Air Room Air O2 Flow Rate 2.0 02/15/18 02/16/18 23:03 03:00 Temp 98.3 98.4 98.3 98.4 Pulse 96 81 Resp 17 16 B/P (MAP) 106/70 (82) 130/90 (103) Pulse Ox 94 93 O2 Delivery Room Air Room Air Intake and Output 02/15/18 02/15/18 02/16/18 15:00 23:00 07:00 Intake Total 800 ml Balance 800 ml TREE VALLES MD Feb 16, 2018 07:53
--- NOTE | 2018-02-16 07:58 | DISCH ---
DISCHARGE DISCHARGE INFORMATION: DISCHARGE DATE: Feb 16, 2018 FINAL DIAGNOSIS Problems Medical Problems: (1) Sepsis affecting skin Status: Acute CONDITION ON DISCHARGE: Stable CODE STATUS: Code Status: Full SNF: SNF STAY <30 DAYS: Yes POST DISCHARGE ORDERS: WEIGHT BEARING STATUS: As tolerated DIET AFTER DISCHARGE: ADA CHECKS AFTER DISCHARGE: CHECKS AFTER DISCHARGE: Check blood sugar, ac/hs FOLLOW-UP: PHYSICIAN FOLLOW-UP: Dr. Floyd 1-2 weeks ADDITIONAL FOLLOW-UP: longterm for wound care, teach pt about diabetic diet & insulin shot DISCHARGE MEDICATIONS: Home Meds Reported Medications Ascorbic Acid (ASCORBIC ACID) 250 Mg Tablet, 250 MG PO DAILY, TAB 02/07/18 Iodine (KELP) 150 Mcg Tablet, 150 MCG PO PRN 1X PRN for CONSTIPATION, TAB 02/07/18 Lurasidone Hcl (LATUDA) 120 Mg Tablet, 120 MG PO DAILY, TAB 02/07/18 Lurasidone Hcl (LATUDA) 20 Mg Tablet, 20 MG PO DAILY, TAB 02/07/18 Lisinopril/Hydrochlorothiazide (LISINOPRIL-HCTZ 20-25 MG TAB) 1 Each Tablet, 1 TAB PO DAILY, #30 TAB 5 Refills 02/07/18 Metformin Hcl (METFORMIN HCL) 500 Mg Tablet, 500 MG PO BIDWMEALS for ANTI- DIABETIC, TAB 0 Refills 02/07/18 TREE FLOYD MD Feb 16, 2018 07:58
[2018-02-16] MEDS: INSULIN LISPRO 300 UNITS/3 ML INSULN.PEN. SQ SCH ×6 (08:00→17:00)
[2018-02-16] MEDS ORDERED: LISI-130 PO (08:01)
[2018-02-16] MEDS ORDERED: ACET500T55 PO (08:01)
[2018-02-16] MEDS ORDERED: CEPH250C PO (08:01)
[2018-02-16] MEDS: NYSTATIN TOPICAL POWDER 15GM BOTTLE. TP SCH ×2 (08:58→21:00)
[2018-02-16] MEDS: LURASIDONE 40 MG TABLET. PO SCH (08:59)
[2018-02-16] MEDS: metFORMIN 500 MG TABLET PO SCH (08:59)
[2018-02-16] MEDS: hydroCHLOROthiazide 25 MG TABLET PO SCH (08:59)
[2018-02-16] MEDS: LISINOPRIL 20 MG TABLET PO SCH (09:00)
[2018-02-16] MEDS: CEPHALEXIN 250 MG CAPSULE. PO SCH ×4 (09:00→21:11)
[2018-02-16 11:00] VITALS: BP 126/85
[2018-02-16] MEDS: LACTOBACILLUS RHAMNOSUS GG 1 CAPSULE. PO SCH ×2 (12:29→21:11)
--- NOTE | 2018-02-16 15:09 | DS ---
DATE OF DISCHARGE: 02/16/2018 CHIEF COMPLAINT: Redness and sores, left lower extremity. HISTORY OF PRESENT ILLNESS: The patient is a 52-year-old female who presented to the Emergency Room with the above complaint. These symptoms apparently began several days prior to admission. The patient reported that she had fallen outside and scraped her legs on the ground. She also may have had some insect bites that were pruritic and she had been scratching them. She developed redness on the left lower leg and some sores. These symptoms worsened and she came to the Emergency Room. Initial evaluation there showed her to be febrile with a temperature of 100.6. Treatment was started and she was admitted for further care. Her blood sugar was also found to be 370 at admission. HOSPITAL COURSE: The patient was started on IV antibiotics for treatment of her cellulitis. She was seen in consultation by Infectious Disease and Orthopedic Surgery. Dr. Chu initially performed a bedside incision and drainage of the source. CT of the legs showed some deeper areas of infection. Dr. Chu then took the patient to the operating room and performed a deeper incision and drainage with application of a wound VAC. The cultures from this were eventually positive for methicillin-sensitive Staphylococcus aureus and antibiotics were adjusted per Infectious Disease recommendation. The patient had been on metformin prior to admission for treatment of her diabetes. However, her A1c was 14.2 at admission indicating that her diabetes had been very poorly controlled. She was started on insulin for treatment of this. Her blood sugars are much improved and now appear well controlled with insulin injections. Due to her underlying developmental disability, the patient has had much difficulty in learning how to administer her own insulin, although nursing has worked with her daily on this. She also has difficulty understanding and following the limitations of a diabetic diet. The patient has hypertension. Her blood pressure was elevated with her home medication and so her lisinopril was increased to 40 mg daily. The patient has schizophrenia, which is stable with her home medication. The patient had been living at home with her elderly father prior to admission. On several occasions during the hospitalization, the family expressed concerns that they were not able to continue her care at home, especially with the wound VAC and the need for insulin injections. The delinquency prevention social worker was consulted and has been working on this. She has been accepted at [facility] and will transfer there today. Discharge was delayed a day due to the need to find a facility for her. She was initially going to be discharged with the wound vac but this was discontinued. [facility] follow up if insurance will cover this. FINAL DIAGNOSES: 1. Sepsis. 2. Cellulitis, left lower extremity. 3. Diabetes mellitus type 2, uncontrolled, now insulin-dependent. 4. Hypertension. 5. Schizophrenia. DISCHARGE MEDICATIONS: Tylenol p.r.n., Keflex 500 mg q.i.d. x 14 days, hydrochlorothiazide 25 mg daily, Lantus insulin 15 units at bedtime, Humalog insulin 15 units t.i.d. a.c., Lisinopril 40 mg daily, nystatin powder as needed, ascorbic acid 250 mg daily, Latuda 140 mg daily, metformin 500 mg b.i.d. FOLLOWUP: Followup is with Dr. Floyd in 2 weeks or after discharge from prison. TREE FLOYD MD DR: LAI/ruperto JOB#: [id number] / [id number] CASE
[2018-02-16 15:21] VITALS: BP 137/89
[2018-02-16 19:00] VITALS: BP 134/92
[2018-02-16] MEDS ORDERED: INSULIN GLARGINE 300 UNITS/3 ML INSULN.PEN. SQ SCH (21:00)
[2018-02-16 23:00] VITALS: BP 117/72
[2018-02-17 03:00] VITALS: BP 138/89
[2018-02-17 07:00] VITALS: BP 125/80
[2018-02-17] MEDS: INSULIN LISPRO 300 UNITS/3 ML INSULN.PEN. SQ SCH ×2 (08:00→09:13)
[2018-02-17] MEDS: CEPHALEXIN 250 MG CAPSULE. PO SCH (09:00)
[2018-02-17] MEDS: hydroCHLOROthiazide 25 MG TABLET PO SCH (09:00)
[2018-02-17] MEDS: NYSTATIN TOPICAL POWDER 15GM BOTTLE. TP SCH (09:00)
[2018-02-17 09:01] VITALS: BP 125/80
[2018-02-17] MEDS: LISINOPRIL 20 MG TABLET PO SCH (09:01)
[2018-02-17] MEDS: LURASIDONE 40 MG TABLET. PO SCH (09:01)
[2018-02-17] MEDS: metFORMIN 500 MG TABLET PO SCH (09:01)
[2018-02-17] MEDS: LACTOBACILLUS RHAMNOSUS GG 1 CAPSULE. PO SCH (09:02)
[2018-02-17] MEDS ORDERED: INSULIN LISPRO 300 UNITS/3 ML INSULN.PEN. SQ SCH (12:00)
[2018-02-17] MEDS ORDERED: INSULIN GLARGINE 300 UNITS/3 ML INSULN.PEN. SQ SCH (21:00)
== END 2018-02-17 10:55 | DRG 853 ==
LOC: ER 22:46 → 4 NORTH 02-07 01:40
PROVIDERS: ADMIT Family Medicine; ATTEND Family Medicine
PROC: 0JBP0ZX Excision of Left Lower Leg Subcutaneous Tissue and Fascia, Open Approach, Diagnostic (ICD-10-PCS; 2018-02-07)
PROC: 0J9P0ZZ Drainage of Left Lower Leg Subcutaneous Tissue and Fascia, Open Approach (ICD-10-PCS; principal; 2018-02-07 12:00)
PROC: 0JBP0ZZ Excision of Left Lower Leg Subcutaneous Tissue and Fascia, Open Approach (ICD-10-PCS; 2018-02-09)
DX: A41.01 Sepsis due to Methicillin susceptible Staphylococcus aureus (principal); E43 Unspecified severe protein-calorie malnutrition; L03.116 Cellulitis of left lower limb; L02.416 Cutaneous abscess of left lower limb; E11.65 Type 2 diabetes mellitus with hyperglycemia; M19.90 Unspecified osteoarthritis, unspecified site; F20.9 Schizophrenia, unspecified; F81.9 Developmental disorder of scholastic skills, unspecified; I10 Essential (primary) hypertension; J45.909 Unspecified asthma, uncomplicated; S80.922A Unspecified superficial injury of left lower leg, initial encounter; W19.XXXA Unspecified fall, initial encounter; W57.XXXA Bitten or stung by nonvenomous insect and other nonvenomous arthropods, initial encounter; Y93.89 Activity, other specified; Y92.89 Other specified places as the place of occurrence of the external cause; Y99.8 Other external cause status; Z79.4 Long term (current) use of insulin; Z68.39 Body mass index [BMI] 39.0-39.9, adult; Z79.899 Other long term (current) drug therapy; Z82.49 Family history of ischemic heart disease and other diseases of the circulatory system
CPT/HCPCS: 36415; 71045; 73700; 80048; 80053; 80202; 82962; 83036; 83605; 83880; 85025; 86140; 87071; 87075; 87186; 93005; 96365; J0295; J1100; J1650; J1815; J2001; J2185; J2250; J2405; J2543; J2704; J3010; J3370; J3490; J7030; J7040; J7042; S0028; 99285-25; A4461

== ENCOUNTER → 2018-02-26 | Outpatient (CLI) | payer OTHER ==
[2018-02-17 09:01] VITALS: BP 125/80
[~2018-02-26] MED LIST: ACET500T55 PO; ASCO250T3 PO; CEPH250C PO; HYDR25TA9 PO; IODI150T PO; LACT1CAP19 PO; LISI-130 PO; LISI1TAB7 PO; LURA120T PO; LURA20TA PO; METF500T16 PO; NYST60PO TP
== END | disposition home or self-care (01) ==
LOC: PMGWOUND 08:10
PROVIDERS: ATTEND Emergency Medicine Undersea and Hyperbaric Medicine
DX: E11.622 Type 2 diabetes mellitus with other skin ulcer (principal); L97.222 Non-pressure chronic ulcer of left calf with fat layer exposed; E11.65 Type 2 diabetes mellitus with hyperglycemia; I10 Essential (primary) hypertension; J45.909 Unspecified asthma, uncomplicated; M19.90 Unspecified osteoarthritis, unspecified site; Z79.4 Long term (current) use of insulin; Z87.891 Personal history of nicotine dependence
CPT/HCPCS: 97597

== ENCOUNTER → 2018-03-05 | Outpatient (CLI) | payer OTHER ==
[2018-02-17 09:01] VITALS: BP 125/80
== END | disposition home or self-care (01) ==
LOC: PMGWOUND 08:39
PROVIDERS: ATTEND Emergency Medicine Undersea and Hyperbaric Medicine
DX: E11.622 Type 2 diabetes mellitus with other skin ulcer (principal); L97.222 Non-pressure chronic ulcer of left calf with fat layer exposed; E11.65 Type 2 diabetes mellitus with hyperglycemia; I10 Essential (primary) hypertension; J45.909 Unspecified asthma, uncomplicated; M19.90 Unspecified osteoarthritis, unspecified site; Z79.4 Long term (current) use of insulin; Z87.891 Personal history of nicotine dependence
CPT/HCPCS: 97597

== ENCOUNTER → 2018-03-12 | Outpatient (CLI) | payer OTHER ==
[2018-02-17 09:01] VITALS: BP 125/80
== END | disposition home or self-care (01) ==
LOC: PMGWOUND 08:40
PROVIDERS: ATTEND Emergency Medicine Undersea and Hyperbaric Medicine
DX: E11.622 Type 2 diabetes mellitus with other skin ulcer (principal); L97.222 Non-pressure chronic ulcer of left calf with fat layer exposed; E11.65 Type 2 diabetes mellitus with hyperglycemia; I10 Essential (primary) hypertension; J45.909 Unspecified asthma, uncomplicated; M19.90 Unspecified osteoarthritis, unspecified site; Z79.4 Long term (current) use of insulin; Z87.891 Personal history of nicotine dependence
CPT/HCPCS: 97597

== ENCOUNTER → 2018-03-19 | Outpatient (CLI) | payer OTHER ==
[2018-02-17 09:01] VITALS: BP 125/80
== END | disposition home or self-care (01) ==
LOC: PMGWOUND 08:35
PROVIDERS: ATTEND Emergency Medicine Undersea and Hyperbaric Medicine
DX: E11.622 Type 2 diabetes mellitus with other skin ulcer (principal); L97.222 Non-pressure chronic ulcer of left calf with fat layer exposed; I10 Essential (primary) hypertension; E11.65 Type 2 diabetes mellitus with hyperglycemia; J45.909 Unspecified asthma, uncomplicated; M19.90 Unspecified osteoarthritis, unspecified site; Z87.891 Personal history of nicotine dependence; Z79.4 Long term (current) use of insulin
CPT/HCPCS: 11042

== ENCOUNTER → 2018-04-02 | Outpatient (CLI) | payer OTHER ==
[~2018-04-02] MED LIST changes: +HYDR-2145 PO; -HYDR25TA9 PO
== END | disposition home or self-care (01) ==
LOC: PMGWOUND 09:16
PROVIDERS: ATTEND Preventive Medicine Undersea and Hyperbaric Medicine
DX: E11.622 Type 2 diabetes mellitus with other skin ulcer (principal); L97.222 Non-pressure chronic ulcer of left calf with fat layer exposed; I10 Essential (primary) hypertension; J45.909 Unspecified asthma, uncomplicated; F20.9 Schizophrenia, unspecified; M19.90 Unspecified osteoarthritis, unspecified site; Z87.891 Personal history of nicotine dependence; Z79.4 Long term (current) use of insulin
CPT/HCPCS: 97597

== ENCOUNTER → 2018-04-09 | Outpatient (CLI) | payer OTHER | END | disposition home or self-care (01) | LOC: PMGWOUND 10:00 | PROVIDERS: ATTEND Emergency Medicine Undersea and Hyperbaric Medicine | DX: E11.622 Type 2 diabetes mellitus with other skin ulcer (principal); L97.222 Non-pressure chronic ulcer of left calf with fat layer exposed; L02.416 Cutaneous abscess of left lower limb; I10 Essential (primary) hypertension; J45.909 Unspecified asthma, uncomplicated; F20.9 Schizophrenia, unspecified; M19.90 Unspecified osteoarthritis, unspecified site; Z87.891 Personal history of nicotine dependence; Z79.4 Long term (current) use of insulin; Z79.899 Other long term (current) drug therapy | CPT/HCPCS: 99214; G0463 ==

== ENCOUNTER → 2018-04-23 | Outpatient (CLI) | payer OTHER | END | disposition home or self-care (01) | LOC: PMGWOUND 09:17 | PROVIDERS: ATTEND Emergency Medicine Undersea and Hyperbaric Medicine | DX: E11.622 Type 2 diabetes mellitus with other skin ulcer (principal); L97.228 Non-pressure chronic ulcer of left calf with other specified severity; E11.65 Type 2 diabetes mellitus with hyperglycemia; I10 Essential (primary) hypertension; F20.9 Schizophrenia, unspecified; J45.909 Unspecified asthma, uncomplicated; M19.90 Unspecified osteoarthritis, unspecified site; Z79.4 Long term (current) use of insulin; Z87.891 Personal history of nicotine dependence | CPT/HCPCS: 99213 ==